=== PATIENT | female | born 1970 | race Caucasian/White ===

== ENCOUNTER → 2016-04-20 | Outpatient (CLI) | payer OTHER ==
--- NOTE | 2016-04-20 14:25 | XR ---
EXAMINATION TYPE: XR foot complete LT DATE OF EXAM: 04/20/2016 2:13 PM COMPARISON: NONE HISTORY: Pain left midfoot Arthropathy of the first MTP joint. Hypertrophic change involving the base of the fifth metacarpal. C alcaneal large spurs noted. Osseous structures intact. IMPRESSION: 1. No acute fracture or dislocation. If symptoms persist, follow-up exam in 7 to 10 days could be ob tained. 2. Arthropathy and hypertrophic changes.
== END ==
LOC: RADXRMAIN 13:42
PROVIDERS: ATTEND Physician Assistant
DX: M19.072 Primary osteoarthritis, left ankle and foot (principal)

== ENCOUNTER → 2016-09-06 | Outpatient (CLI) | payer OTHER ==
--- NOTE | 2016-09-06 17:24 | US ---
EXAMINATION TYPE: US abdomen complete DATE OF EXAM: 09/06/2016 COMPARISON: NONE CLINICAL HISTORY: R10.11 RUQ PAIN. H/O, GERD, heartburn, nausea EXAM MEASUREMENTS: Liver Length: 20.8 cm Gallbladder Wall: 0.2 cm CBD: 0.4 cm Spleen: 11.4 cm Right Kidney: 11.0 x 4.9 x 4.7cm Left Kidney: 11.8 x 5.2 x 6.2cm Pancreas: limited views appear wnl Liver: difficult to penetrate, enlarged, focal fatty sparring around GB Gallbladder: wnl Evidence for sonographic Stephen's sign: no CBD: wnl Spleen: wnl Right Kidney: wnl Left Kidney: 2.5cm hypoechoic area seen midline, probable dromedary hump Upper IVC: wnl Abd Aorta: distal area gassed out The pancreas is poorly visualized. The liver is enlarged measuring 21 cm. Is fatty infiltrated with some focal fatty sparing near the ga llbladder fossa. The gallbladder is normal without cholelithiasis. The gallbladder wall measures 2 mm. The disc, hepat ic duct measures 4 mm. There is no evidence of a sonographic Stephen's sign. The spleen is normal in size. Right kidney is normal. There is a prominent dromedary hump involving the left kidney. Visualized portions of aorta and IVC are normal. IMPRESSION: 1. HEPATOMEGALY AND FATTY INFILTRATION OF THE LIVER. 2. PROBABLE DROMEDARY HUMP INVOLVING THE LEFT KIDNEY.
== END | disposition home or self-care (01) ==
LOC: RADUSWWP 10:03
PROVIDERS: ATTEND Family Medicine
DX: R16.0 Hepatomegaly, not elsewhere classified (principal); K76.0 Fatty (change of) liver, not elsewhere classified
CPT/HCPCS: 76700

== ENCOUNTER → 2017-02-08 | Outpatient (CLI) | payer OTHER ==
[2017-02-08 11:35] LABS: Non-African American GFR(MDRD) >60 (>60 ml/min/1.73 sqM)
--- NOTE | 2017-02-16 07:57 | MR ---
EXAMINATION TYPE: MR brain wo/w con DATE OF EXAM: 02/08/2017 COMPARISON: NONE HISTORY: Essential tremor CONTRAST: Performed utilizing 9 mL intravenous Gadavist gadolinium contrast. TECHNIQUE: Multiplanar, multiecho imaging on a 3.0 Anuja magnet is performed through the brain. Stud y is performed within 24 hours of arrival to the hospital. The craniovertebral junction is normal. The pituitary is normal. Diffusion-weighted imaging is performed. No abnormal hyperintensity is present to suggest an acute i ntracranial infarct or acute ischemic change. There are scattered punctate areas of hyperintensity on T2 and Inversion Recovery weighted sequences which are non-specific but can be related to microvascular ischemic changes. These areas are not appa rent on the diffusion-weighted imaging and include locations such as the left centrum semiovale measu ring 0.8 x 0.6 cm. Series 501, image 19. Also within the subcortical white matter of the right fronta l lobe measuring 0.5 x 0.5 cm. Series 501, image 19. There is a 0.7 cm lesion with the right centrum semiovale. Series 501, image 21. Additional punctate subcortical white matter changes are within the frontal lobes bilaterally and within the subcortical white matter of the parietal lobes level of the fong radiata. These larger areas. Than present previously and subcortical punctate white matter isidro nges are faintly visualized. Ventricles and sulci are appropriate for the patient age. Following contrast administration, no suspicious area of enhancement is evident. IMPRESSIONS: 1. Scattered small areas of white matter change which are nonspecific. The findings are stable from 2 013. Chronic white matter ischemic changes are favored within the differential. Multiple sclerosis, v asculitis, among other etiologies are not excluded.
== END | disposition home or self-care (01) ==
LOC: RADMRIMAIN 11:00
PROVIDERS: ATTEND Psychiatry & Neurology Neurology
DX: R90.82 White matter disease, unspecified (principal); Z13.89 Encounter for screening for other disorder
CPT/HCPCS: 82565; 70553; 36415; A9581

== ENCOUNTER 2018-05-27 16:49 | Emergency (ER) | payer OTHER ==
[2018-05-27] MEDS ORDERED: IPRATROPIUM-ALBUTEROL 3 ML NEB INHALATION STA (17:31)
[2018-05-27 17:45] LABS: Basophils # (A) 0.1 k/uL (0-0.2); Basophils % (A) 1 %; Eosinophils # (A) 0.2 k/uL (0-0.7); Eosinophils % (A) 3 %; HCT 37.5 % (34.0-46.0); HGB 12.9 gm/dL (11.4-16.0); Lymphocytes # (A) 1.7 k/uL (1.0-4.8); Lymphocytes % (A) 26 %; MCH 28.1 pg (25.0-35.0); MCHC 34.4 g/dL (31.0-37.0); MCV 81.6 fL (80.0-100.0); Mean Platelet Volume 9.3; Monocytes # (A) 0.5 k/uL (0-1.0); Monocytes % (A) 8 %; Neutrophils % (A) 60 %; Platelet Count 319 k/uL (150-450); RDW 15.2 % (11.5-15.5); WBC 6.6 k/uL (3.8-10.6)
--- NOTE | 2018-05-27 17:45 | ED ---
Chest Pain HPI - General Chief Complaint: Chest Pain Stated Complaint: Chest Discomfort - [facility] Sent Time Seen by Provider: 05/27/18 17:01 Source: patient Mode of arrival: ambulatory Limitations: no limitations - History of Present Illness Initial Comments: 47-year-old female patient percents emergency department today for evaluation of chest pain. Patient states she began to have left upper sharp chest pain last evening. Patient states that migrated to her substernal chest and feels like a tightness that does radiate through to her back. States this has been constant since last night. Patient states that she has had a cough and does feel rattling in her chest when she coughs, laughs, or sings. Patient denies any shortness of breath with this. Denies any sweats, fever, chills, nausea, or vomiting. States that she does have a history of acid reflux and hiatal hernia which occasionally does cause her some indigestion but this feels different. Patient does have a history of diabetes and hypertension. Does have a family history of coronary artery disease in her father. Patient denies any recent rash, abdominal pain, diarrhea, constipation, back pain, numbness, tingling, dizziness, weakness, hematuria, dysuria, urinary urgency, urinary frequency, headache, visual changes, or any other complaints. - Related Data Home Medications Medication Instructions Recorded Confirmed Esomeprazole Magnesium [NexIUM] 40 mg PO DAILY 10/28/15 10/31/15 HYDROcodone/APAP 5-325MG [[place] 1 - 2 tab PO Q6HR PRN 10/28/15 10/31/15 5-325] Losartan-Hctz 50-12.5 mg [Hyzaar 1 each PO DAILY 10/28/15 10/31/15 50-12.5] Pain Away 1 tab PO DAILY PRN 10/28/15 10/31/15 metFORMIN HCL [Glucophage] 500 mg PO BID 10/28/15 10/31/15 Previous Rx's Medication Instructions Recorded Albuterol Sulfate [Proair Hfa] 1 - 2 puff INHALATION Q6HR PRN #1 05/27/18 inhaler predniSONE 50 mg PO DAILY #5 tablet 05/27/18 Allergies Allergy/AdvReac Type Severity Reaction Status Date / Time adhesive tape AdvReac Rash/Hives Verified 05/27/18 16:55 Review of Systems ROS Statement: Those systems with pertinent positive or pertinent negative responses have been documented in the HPI. ROS Other: All systems not noted in ROS Statement are negative. EKG Findings - EKG Comments: EKG Findings:: EKG obtained at 1732 shows normal sinus rhythm with a ventricular rate of 89, VT interval 166, QRS duration 84, QT 368, QTC 447. No evidence of ST elevation or depression. Past Medical History Past Medical History: Cancer, Diabetes Mellitus, GERD/Reflux, Hypertension Additional Past Medical History / Comment(s): hx. 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 Date of last positivie culture/infection: 2013 MDRO Source:: back Past Surgical History: Tonsillectomy Additional Past Surgical History / Comment(s): EGD, colonoscopy Past Anesthesia/Blood Transfusion Reactions: Family History of Problems w/ Anesthesia Additional Past Anesthesia/Blood Transfusion Reaction / Comment(s): grandparent after surgery-?related to anesthesia Past Psychological History: No Psychological Hx Reported Smoking Status: Former smoker Past Alcohol Use History: None Reported Past Drug Use History: None Reported - Past Family History Mother Family Medical History: Deep Vein Thrombosis (DVT) General Exam Limitations: no limitations General appearance: alert, in no apparent distress, other (Physical well- developed, well-nourished adult female patient in no acute distress. Vital signs upon presentation are temperature 98.1F, pulse 94, respirations 18, blood pressure 114/78, pulse ox 98% on room air.) Eye exam: Present: normal appearance, PERRL, EOMI. Absent: scleral icterus, conjunctival injection, periorbital swelling ENT exam: Present: normal exam, normal oropharynx, mucous membranes moist Respiratory exam: Present: normal lung sounds bilaterally. Absent: respiratory distress, wheezes, rales, rhonchi, stridor Cardiovascular Exam: Present: regular rate, normal rhythm, normal heart sounds. Absent: systolic murmur, diastolic murmur, rubs, gallop, clicks GI/Abdominal exam: Present: soft, normal bowel sounds. Absent: distended, tenderness, guarding, rebound, rigid Neurological exam: Present: alert, oriented X3, CN II-XII intact Psychiatric exam: Present: normal affect, normal mood Skin exam: Present: warm, dry, intact, normal color. Absent: rash Course Vital Signs 05/27/18 05/27/18 05/27/18 16:52 17:47 18:00 Temperature 98.1 F Pulse Rate 94 89 88 Respiratory 18 Rate Blood Pressure 114/78 O2 Sat by Pulse 98 Oximetry 05/27/18 20:38 Temperature 97.5 F L Pulse Rate 82 Respiratory 14 Rate Blood Pressure 113/71 O2 Sat by Pulse 100 Oximetry Chest Pain [facility]:Two-view x-ray of the chest is obtained. Report was reviewed in its entirety. Impression by Dr. Ceja shows no acute pulmonary process. MDM: 47-year-old male patient presents to the emergency department today for evaluation of chest tightness. Physical examination does reveal mild wheezing in the posterior lung bustos. Patient does report cough. Chest x-ray shows no acute cardiopulmonary process. EKG shows normal sinus rhythm. Patient's heart score is 3 and therefore is low risk for cardiac event. She will be discharged with prescription for prednisone and Pro Air to treat bronchitis. She is instructed to follow-up with her primary care physician for further evaluation. Return parameters discussed in detail patient verbalizes understanding and agrees with this plan. Disposition Clinical Impression: Chest pain Disposition: HOME SELF-CARE Condition: Good Instructions (If sedation given, give patient instructions): Chest Pain (ED), Acute Bronchitis (ED) Additional Instructions: Take medications as directed. Follow-up with your primary care physician for recheck in 1-2 days. Return to the emergency department immediately for any new, worsening, or concerning symptoms. Prescriptions: predniSONE 50 mg PO DAILY #5 tablet Albuterol Sulfate [Proair Hfa] 1 - 2 puff INHALATION Q6HR PRN #1 inhaler PRN Reason: Shortness Of Breath Is patient prescribed a controlled substance at d/c from ED?: No Referrals: Tino Hou DO [Primary Care Provider] - 1-2 days Time of Disposition: 20:01
[2018-05-27 17:54] LABS: Partial Thromboplastin Time 22.4 sec (22.0-30.0); Prothrombin Time 10.7 sec (9.0-12.0)
[2018-05-27 17:58] LABS: ALT 31 U/L (9-52); AST 24 U/L (14-36); Alkaline Phosphatase 60 U/L (38-126); Anion Gap 13 mmol/L; Blood Urea Nitrogen 19 mg/dL (7-17); Calcium 9.5 mg/dL (8.4-10.2); Carbon Dioxide 25 mmol/L (22-30); Chloride 99 mmol/L (98-107); Glucose 164 mg/dL (74-99); Magnesium 1.5 mg/dL (1.6-2.3); Potassium 4.3 mmol/L (3.5-5.1); Sodium 137 mmol/L (137-145); Total Bilirubin 1.1 mg/dL (0.2-1.3); Total Protein 6.3 g/dL (6.3-8.2)
[2018-05-27] MEDS ORDERED: MAGNESIUM OXIDE 400 MG TAB PO STA (18:44)
--- NOTE | 2018-05-27 19:26 | XR ---
EXAMINATION TYPE: XR chest 2V DATE OF EXAM: 05/27/2018 COMPARISON: None INDICATION: Chest pain TECHNIQUE: Frontal and lateral views of the chest are obtained. FINDINGS: The heart size is normal. The pulmonary vasculature is normal. The lungs are clear. IMPRESSION: 1. No acute pulmonary process.
[2018-05-27] MEDS ORDERED: predniSONE 50 MG TAB PO STA (20:01)
[2018-05-27] MEDS ORDERED: ACET/COD 300 MG/30 MG STARTER PACK 6 TAB BTL PO STA (20:01)
[2018-05-27 20:40] VITALS: BP 113/71; PULSE 82; RESP 14; TEMP 97.5
== END 2018-05-27 20:57 | disposition home or self-care (01) ==
LOC: EC 16:49
DX: R07.89 Other chest pain (principal); R05 Cough; K21.9 Gastro-esophageal reflux disease without esophagitis; I10 Essential (primary) hypertension; E11.40 Type 2 diabetes mellitus with diabetic neuropathy, unspecified; Z86.14 Personal history of Methicillin resistant Staphylococcus aureus infection; Z85.828 Personal history of other malignant neoplasm of skin; Z87.891 Personal history of nicotine dependence; Z79.84 Long term (current) use of oral hypoglycemic drugs; Z79.899 Other long term (current) drug therapy; Z91.048 Other nonmedicinal substance allergy status
CPT/HCPCS: 36415; 94640; 93005; 80053; 83735; 84484; 85025; 85610; 85730; 71046; 99285; J7512

== ENCOUNTER 2019-01-24 18:57 | Inpatient (IN) | payer OTHER ==
[2019-01-24] MEDS ORDERED: ONDANSETRON 4 MG/2 ML VIAL IVP STA (20:10)
[2019-01-24] MEDS ORDERED: SODIUM CHLORIDE 0.9% 1,000 ML IV STA (20:10)
[2019-01-24] MEDS ORDERED: MORPHINE SULFATE 4 MG/ML SYRINGE IV STA (20:10)
[2019-01-24 20:12] LABS: Appearance,Urine Clear (Clear); Bilirubin,Urine Negative (Negative); Blood,Urine Negative (Negative); Color,Urine Yellow; Glucose,Urine (UA) 3+ (Negative); Ketones,Urine Negative (Negative); Leukocyte Esterase,Urine Negative (Negative); Nitrite,Urine Negative (Negative); PH, Urine 5.5 (5.0-8.0); Protein,Urine Negative (Negative); Specific Gravity,Urine 1.017 (1.001-1.035); Urobilinogen,Urine <2.0 mg/dL (<2.0)
[2019-01-24 20:42] LABS: Basophils # (A) 0.1 k/uL (0-0.2); Basophils % (A) 0 %; Eosinophils # (A) 0.1 k/uL (0-0.7); Eosinophils % (A) 1 %; HCT 36.9 % (34.0-46.0); HGB 12.9 gm/dL (11.4-16.0); Lymphocytes # (A) 1.1 k/uL (1.0-4.8); Lymphocytes % (A) 11 %; MCH 30.4 pg (25.0-35.0); MCHC 34.9 g/dL (31.0-37.0); Mean Platelet Volume 5.8; Monocytes # (A) 0.8 k/uL (0-1.0); Monocytes % (A) 7 %; Neutrophils # (A) 8.5 k/uL (1.3-7.7); Neutrophils % (A) 80 %; Platelet Count 361 k/uL (150-450); RBC 4.24 m/uL (3.80-5.40); RDW 12.5 % (11.5-15.5); WBC 10.6 k/uL (3.8-10.6)
[2019-01-24 20:44] LABS: ALT 16 U/L (9-52); AST 26 U/L (14-36); African American GFR (CKD) >90 (>60 ml/min/1.73 sqM); Albumin 3.9 g/dL (3.5-5.0); Alkaline Phosphatase 76 U/L (38-126); Amylase 32 U/L (30-110); Anion Gap 11 mmol/L; Blood Urea Nitrogen 13 mg/dL (7-17); Carbon Dioxide 26 mmol/L (22-30); Chloride 99 mmol/L (98-107); Glucose 176 mg/dL (74-99); Non-African American GFR(CKD) >90 (>60 ml/min/1.73 sqM); Sodium 136 mmol/L (137-145); Total Bilirubin 1.6 mg/dL (0.2-1.3); Total Protein 6.4 g/dL (6.3-8.2)
[2019-01-24 20:48] LABS: Potassium 4.3 mmol/L (3.5-5.1)
--- NOTE | 2019-01-24 20:49 | XR ---
EXAMINATION TYPE: XR KUB DATE OF EXAM: 01/24/2019 8:40 PM CLINICAL HISTORY: Abdominal pain with nausea and vomiting. TECHNIQUE: Two Upright KUB images of the abdomen are obtained. COMPARISON: None. FINDINGS: Some possibility of bowel gas. Scattered gas is seen in non-distended stomach and small bow el loops. Gas and fecal material is seen in non-distended colon. Patchy left basilar opacity favors a telectasis and/or infiltrate. Slight S-shaped scoliotic curvature. No pneumoperitoneum. Mild to moder ate narrowing both hip joints right greater than left. Prominent right hepatic lobe versus mild hepat omegaly. IMPRESSION: Overall nonspecific but strongly favor nonobstructive bowel gas pattern.
--- NOTE | 2019-01-24 21:49 | CT ---
EXAMINATION TYPE: CT abdomen pelvis w con DATE OF EXAM: 01/24/2019 HISTORY: left sided abdominal pain. hx of diverticulitis. CT DLP: 1110mGycm Automated Exposure Control for Dose Reduction was Utilized. CONTRAST: CT scan of the abdomen and pelvis is performed with IV Contrast, patient injected with 100 mL of Isov ue 300. COMPARISON: Abdominal x-ray earlier today FINDINGS: LUNG BASES: No significant abnormality is appreciated. LIVER/GB: No significant abnormality is appreciated. PANCREAS: No significant abnormality is seen. SPLEEN: No significant abnormality is seen. ADRENALS: No significant abnormality is seen. KIDNEYS: 3 mm nonobstructing calculus lower pole level left kidney coronal image 65. Symmetric cortic al medullary uptake and excretion from both kidneys without hydronephrosis seen bilaterally. BOWEL: Evaluation bowel slightly suboptimal secondary to lack of enteric contrast. Small to moderate size hiatal hernia. No suspicious small or large bowel dilatation. Low-lying cecum into the anterior right pelvis is noted. There is wall thickening beginning at level of splenic flexure becoming fairly severe proximal aspect coronal image 50 where there is posterior prominent 1.4 cm diverticulum. Ther e is moderate to severe ill-defined fluid and fat stranding at this level. There is mild to moderate wall thickening distal to this with mild ill-defined fluid in the remainder of the left colon. Modera te diverticula with mild wall thickening proximal sigmoid colon without surrounding inflammatory mckeon ge. No well-formed fluid collection or drainable abscess. No pneumoperitoneum. UTERUS/ADNEXA: Anteverted uterus projects to right of midline. Small amount of free fluid right pelvi s axial image 71 nonspecific finding. Both ovaries normal in size on axial image 68. Scattered pelvic phleboliths bilaterally. LYMPH NODES: No greater than 1cm abdominal or pelvic lymph nodes are appreciated. OSSEOUS STRUCTURES: Moderate disc space narrowing with vacuum disc phenomenon at L5-S1 level. Moderat e axial narrowing of both hip joints. OTHER: No significant additional abnormality is seen. IMPRESSION: Fairly moderate to severe acute uncomplicated diverticulitis centered proximal left colon in the lateral left upper to mid abdomen as detailed above.
[2019-01-24] MEDS ORDERED: ONDANSETRON 4 MG/2 ML VIAL IVP PRN (22:29)
[2019-01-24] MEDS ORDERED: NALOXONE 0.4 MG/ML 1 ML VIAL IV PRN (22:29)
[2019-01-24] MEDS ORDERED: PIPERACILLIN-TAZOBACTAM 3.375 GM in SODIUM CHLORIDE 0.9% 100 ML IVPB STA (22:30)
--- NOTE | 2019-01-24 22:34 | ED ---
Abdominal Pain HPI - General Chief Complaint: Abdominal Pain Stated Complaint: Abd pain Time Seen by Provider: 01/24/19 19:41 Source: patient Mode of arrival: ambulatory Limitations: no limitations - History of Present Illness Initial Comments: 48-year-old female patient presents to the emergency department today for evaluation of left-sided abdominal pain. Patient states this started earlier in the morning and has persisted throughout the day. Patient states she is very tender over the left side of her abdomen earlier. She denies any nausea or vo miting. Denies any constipation or diarrhea. Denies fever or chills. Denies any hematuria, dysuria, urinary frequency, urinary urgency. She denies any radiation of the pain through to her back. She does have history of diverticulitis, states this feels somewhat different. Denies any recent ant ibiotic use. Denies any recent travel or sick contacts. Denies history of abdominal surgery. Patient denies any recent rash, shortness breath, chest pain,numbness, tingling, dizziness, weakness, headache, visual changes, or any other complaints. - Related Data Home Medications Medication Instructions Recorded Confirmed Esomeprazole Magnesium [NexIUM] 40 mg PO DAILY 10/28/15 08/23/18 Losartan-Hctz 50-12.5 mg [Hyzaar 1 each PO DAILY 10/28/15 08/23/18 50-12.5] Pain Away 1 tab PO DAILY PRN 10/28/15 08/23/18 metFORMIN HCL [Glucophage] 500 mg PO BID 10/28/15 08/23/18 Allergies Allergy/AdvReac Type Severity Reaction Status Date / Time adhesive tape AdvReac Rash/Hives Verified 01/24/19 19:18 Review of Systems ROS Statement: Those systems with pertinent positive or pertinent negative responses have been documented in the HPI. ROS Other: All systems not noted in ROS Statement are negative. Past Medical History Past Medical History: Cancer, Diabetes Mellitus, GERD/Reflux, Hypertension Additional Past Medical History / Comment(s): hx. 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 Date of last positivie culture/infection: 2013 MDRO Source:: back Past Surgical History: Tonsillectomy Additional Past Surgical History / Comment(s): EGD, colonoscopy Past Anesthesia/Blood Transfusion Reactions: Family History of Problems w/ Anesthesia Additional Past Anesthesia/Blood Transfusion Reaction / Comment(s): grandparent after surgery-?related to anesthesia Past Psychological History: No Psychological Hx Reported Smoking Status: Former smoker Past Alcohol Use History: Occasional Past Drug Use History: None Reported - Past Family History Mother Family Medical History: Deep Vein Thrombosis (DVT) General Exam Limitations: no limitations General appearance: alert, in no apparent distress, other (This is a well- developed, well-nourished adult female patient in no acute distress. Vital signs upon presentation are temperature 99.2F, pulse 88, respirations 20, blood pressure 122/72, pulse ox 96% on room air.) Eye exam: Present: normal appearance, PERRL, EOMI. Absent: scleral icterus, conjunctival injection, periorbital swelling ENT exam: Present: normal exam, normal oropharynx, mucous membranes moist Respiratory exam: Present: normal lung sounds bilaterally. Absent: respiratory distress, wheezes, rales, rhonchi, stridor Cardiovascular Exam: Present: regular rate, normal rhythm, normal heart sounds. Absent: systolic murmur, diastolic murmur, rubs, gallop, clicks GI/Abdominal exam: Present: soft, tenderness (Left-sided tenderness), normal bowel sounds. Absent: distended, guarding, rebound, rigid Back exam: Present: normal inspection. Absent: CVA tenderness (R), CVA tenderness (L) Neurological exam: Present: alert, oriented X3, CN II-XII intact Psychiatric exam: Present: normal affect, normal mood Skin exam: Present: warm, dry, intact, normal color. Absent: rash Course Vital Signs 01/24/19 19:15 Temperature 99.2 F Pulse Rate 88 Respiratory 20 Rate Blood Pressure 122/72 O2 Sat by Pulse 96 Oximetry Medical Decision Making - Medical Decision Making 48-year-old female patient presents to the emergency room today for evaluation of left-sided abdominal pain. Physical examination did reveal tenderness over the left upper and left lower quadrant. Labs reviewed and did reveal normal white blood cell count. She did have low-grade temperature upon arrival 99.2. Patient underwent CT abdomen and pelvis which did show acute moderate to severe uncomplicated diverticulitis the left proximal colon. We will start Zosyn. To be admitted to the hospital for further evaluation. - Lab Data Result diagrams: 01/24/19 18:20 01/24/19 18:20 Lab Results 01/24/19 01/24/19 01/24/19 Range/Units 18:20 18:20 20:00 WBC 10.6 (3.8-10.6) k/uL RBC 4.24 (3.80-5.40) m/uL Hgb 12.9 (11.4-16.0) gm/dL Hct 36.9 (34.0-46.0) % MCV 87.0 (80.0-100.0) fL MCH 30.4 (25.0-35.0) pg MCHC 34.9 (31.0-37.0) g/dL RDW 12.5 (11.5-15.5) % Plt Count 361 (150-450) k/uL Neutrophils % 80 % Lymphocytes % 11 % Monocytes % 7 % Eosinophils % 1 % Basophils % 0 % Neutrophils # 8.5 H (1.3-7.7) k/uL Lymphocytes # 1.1 (1.0-4.8) k/uL Monocytes # 0.8 (0-1.0) k/uL Eosinophils # 0.1 (0-0.7) k/uL Basophils # 0.1 (0-0.2) k/uL Sodium 136 L (137-145) mmol/L Potassium 4.3 (3.5-5.1) mmol/L Chloride 99 (98-107) mmol/L Carbon Dioxide 26 (22-30) mmol/L Anion Gap 11 mmol/L BUN 13 (7-17) mg/dL Creatinine 0.63 (0.52-1.04) mg/dL Est GFR (CKD-EPI)AfAm >90 (>60 ml/min/1.73 sqM) Est GFR (CKD-EPI)NonAf >90 (>60 ml/min/1.73 sqM) Glucose 176 H (74-99) mg/dL Calcium 9.0 (8.4-10.2) mg/dL Total Bilirubin 1.6 H (0.2-1.3) mg/dL AST 26 (14-36) U/L ALT 16 (9-52) U/L Alkaline Phosphatase 76 (38-126) U/L Total Protein 6.4 (6.3-8.2) g/dL Albumin 3.9 (3.5-5.0) g/dL Amylase 32 (30-110) U/L Lipase 200 (23-300) U/L Urine Color Yellow Urine Appearance Clear (Clear) Urine pH 5.5 (5.0-8.0) Ur Specific [place] 1.017 (1.001-1.035) Urine Protein Negative (Negative) Urine Glucose (UA) 3+ H (Negative) Urine Ketones Negative (Negative) Urine Blood Negative (Negative) Urine Nitrite Negative (Negative) Urine Bilirubin Negative (Negative) Urine Urobilinogen <2.0 (<2.0) mg/dL Ur Leukocyte Esterase Negative (Negative) - Radiology Data Radiology results: report reviewed, image reviewed CT abdomen and pelvis is obtained. Report was reviewed in its entirety. Impression by Dr. Pickering shows fairly moderate to severe acute uncomplicated diverticulitis entered proximal left colon and the lateral left upper to mid abdomen as detailed above. Disposition Clinical Impression: Diverticulitis Disposition: ADMITTED IP TO THIS [facility] Condition: Serious Referrals: Tino Hou DO [Primary Care Provider] - 1-2 days Decision to Admit Reason: Admit from EC Decision Date: 01/24/19 Decision Time: 22:34
[2019-01-24] MEDS: SODIUM CHLORIDE 0.9% 1,000 ML IV SCH (23:23)
[2019-01-24] MEDS: PIPERACILLIN-TAZOBACTAM 3.375 GM in SODIUM CHLORIDE 0.9% 100 ML IVPB SCH (23:48)
[2019-01-25 00:01] LABS: Glucose,Whole Blood 145 mg/dL (75-99)
[2019-01-25] MEDS: MORPHINE SULFATE 4 MG/ML SYRINGE IV PRN ×2 (04:14→13:06)
[2019-01-25 07:12] LABS: Glucose,Whole Blood 158 mg/dL (75-99)
[2019-01-25] MEDS: PIPERACILLIN-TAZOBACTAM 3.375 GM in SODIUM CHLORIDE 0.9% 100 ML IVPB SCH ×3 (07:19→23:57)
[2019-01-25] MEDS: GABAPENTIN 400 MG CAP PO SCH ×3 (10:19→21:49)
[2019-01-25 10:22] LABS: Basophils % (A) 0 %; Eosinophils # (A) 0.1 k/uL (0-0.7); Eosinophils % (A) 1 %; HGB 11.4 gm/dL (11.4-16.0); Lymphocytes # (A) 1.4 k/uL (1.0-4.8); Lymphocytes % (A) 18 %; MCH 30.5 pg (25.0-35.0); MCHC 34.6 g/dL (31.0-37.0); MCV 88.1 fL (80.0-100.0); Mean Platelet Volume 5.7; Monocytes # (A) 0.6 k/uL (0-1.0); Monocytes % (A) 8 %; Neutrophils # (A) 5.5 k/uL (1.3-7.7); Neutrophils % (A) 72 %; Platelet Count 314 k/uL (150-450); RBC 3.74 m/uL (3.80-5.40); RDW 12.4 % (11.5-15.5); WBC 7.7 k/uL (3.8-10.6)
[2019-01-25] MEDS: LOSARTAN-HCTZ 50-12.5 MG 1 EACH TAB PO SCH ×2 (10:26→21:49)
[2019-01-25] MEDS: ENOXAPARIN 40 MG/0.4 ML SYRINGE SQ SCH (10:26)
[2019-01-25 12:07] LABS: Glucose,Whole Blood 173 mg/dL (75-99)
[2019-01-25] MEDS: INSULIN ASPART (NovoLOG) 100 UNIT/ML VIAL SQ SCH ×3 (13:03→21:50)
[2019-01-25] MEDS: SODIUM CHLORIDE 0.9% 1,000 ML IV SCH (16:35)
[2019-01-25 17:21] LABS: Glucose,Whole Blood 133 mg/dL (75-99)
[2019-01-25 20:32] LABS: Glucose,Whole Blood 162 mg/dL (75-99)
--- NOTE | 2019-01-26 00:12 | P.HPIM ---
History of Present Illness H&P Date: 01/25/19 Chief Complaint: Abdominal pain History of presenting complaint: This is a pleasant 48-year-old patient of Dr. Hou. Chronic stable medical conditions include diabetes, GERD, hypertension, peripheral neuropathy, essential tremor and Martins's esophagus which has subsequently improved. I saw the patient in the morning off 01/25/2019. Patient for 2 days has been increa singly "abdominal pain. No diarrhea. No nausea vomiting. Did a low-grade fever. Presented to the ER. Computed tomography scan of the abdomen showed diverticulitis. Starting IV antibiotics admitted for the same. Does feel a bit tired and rundown. Review of systems: GEN.: Tired low-grade fever EYES: None HEENT: None NECK: None RESPIRATORY: None CARDIOVASCULAR: None GASTROINTESTINAL: As above GENITOURINARY: None MUSCULOSKELETAL: None LYMPHATICS: None HEMATOLOGICAL: None PSYCHIATRY: None NEUROLOGICAL: Peripheral numbness tingling, tremors Social history: Patient smokes it was ordered after about 2005. Lives alone. Doesn't smoke. To water area transit. Physical examination: VITAL SIGNS: Weight 100.8, pulse 69, respiratory, blood pressure 120/77, 99% room air GENERAL: BMI 30.9, laying in bed in distress. EYES: Pupils equal. Conjunctiva normal. HEENT: External appearance of nose and ears normal, oral cavity grossly normal. NECK: JVD not raised; masses not palpable. HEART: First and second heart sounds are normal; no edema. LUNGS: Respiratory rate normal; clear to auscultation. ABDOMEN: Soft, some left lower quadrant tenderness, no guarding or rigidity, liver spleen not palpable, no masses palpable. PSYCH: Alert and oriented x3; mood and affect normal. NEUROLOGICAL: Cranial nerves grossly intact; no facial asymmetry, power and sensation grossly intact. LYMPHATICS: No lymph nodes palpable in the axilla and neck INVESTIGATIONS, reviewed in the clinical context: White count 10.6 hemoglobin 12.9 progression 4.3 creatinine 0.63 Computed tomography scan abdomen-fairly moderate to severe acute uncomplicated diverticulitis centric proximal left colon in the lateral left upper to mid abdomen. Assessment: -Acute motor severe acute uncomplicated diverticulitis -Obesity BMI 30.9 -Diabetes mellitus type 2 -GERD -Essential hypertension -Diabetic peripheral neuropathy -Essential hypertension Plan: Patient is on IV Zosyn. Add IV Flagyl. Put the patient on a full liquid diet. Given GI opinion. Lovenox for DVT prophylaxis. Home medications to be resumed. Care was discussed with the patient. Past Medical History Past Medical History: Cancer, Diabetes Mellitus, GERD/Reflux, Hypertension Additional Past Medical History / Comment(s): hx. 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 Date of last positivie culture/infection: 2013 MDRO Source:: back Past Surgical History: Tonsillectomy Additional Past Surgical History / Comment(s): EGD, colonoscopy Past Anesthesia/Blood Transfusion Reactions: Family History of Problems w/ Anesthesia Additional Past Anesthesia/Blood Transfusion Reaction / Comment(s): grandparent after surgery-?related to anesthesia Past Psychological History: No Psychological Hx Reported Smoking Status: Never smoker Past Alcohol Use History: Occasional Additional Past Alcohol Use History / Comment(s): quit smoking 2005, smoked on & off for only few yrs. Past Drug Use History: None Reported - Past Family History Mother Family Medical History: Deep Vein Thrombosis (DVT) Medications and Allergies Home Medications Medication Instructions Recorded Confirmed Type Losartan-Hctz 50-12.5 mg [Hyzaar 1 tab PO BID 10/28/15 01/24/19 History 50-12.5] metFORMIN HCL [Glucophage] 1,000 mg PO BID 10/28/15 01/24/19 History Acetaminophen Tab [Tylenol Tab] 1,000 mg PO Q6H PRN 01/24/19 01/24/19 History Gabapentin [Neurontin] 400 mg PO TID 01/24/19 01/24/19 History Ibuprofen [Motrin Ib] 600 mg PO Q6H PRN 01/24/19 01/24/19 History Allergies Allergy/AdvReac Type Severity Reaction Status Date / Time adhesive tape AdvReac Rash/Hives Verified 01/24/19 23:36 Physical Exam Vitals: Vital Signs Temp Pulse Resp BP Pulse Ox 01/25/19 23:00 99.3 F 79 12 107/73 94 L 01/25/19 13:47 97.6 F 83 16 122/74 96 01/25/19 10:24 88 113/72 94 L 01/25/19 04:45 99.9 F H 96 20 101/62 95 Intake and Output 01/25/19 01/25/19 01/26/19 14:59 22:59 06:59 Intake Total 800 Balance 800 Intake: Oral 800 Other: # Voids 2 Results CBC & Chem 7: 01/25/19 09:38 01/24/19 18:20 Labs: Abnormal Lab Results - Last 24 Hours (Table) 01/25/19 01/25/19 01/25/19 Range/Units 07:10 09:38 12:05 RBC 3.74 L (3.80-5.40) m/uL Hct 33.0 L (34.0-46.0) % POC Glucose (mg/dL) 158 H 173 H (75-99) mg/dL 01/25/19 01/25/19 Range/Units 17:08 20:29 RBC (3.80-5.40) m/uL Hct (34.0-46.0) % POC Glucose (mg/dL) 133 H 162 H (75-99) mg/dL Thrombosis Risk Factor Assmnt - Choose All That Apply Any of the Below Risk Factors Present?: Yes Each Factor Represents 1 point: Age 41-60 years, Obesity (BMI >25) Thrombosis Risk Factor Assessment Total Risk Factor Score: 2 Thrombosis Risk Factor Assessment Level: Low Risk
[2019-01-26] MEDS: MORPHINE SULFATE 4 MG/ML SYRINGE IV PRN (06:16)
[2019-01-26 06:18] VITALS: RESP 16
[2019-01-26 07:16] LABS: Glucose,Whole Blood 195 mg/dL (75-99)
[2019-01-26] MEDS: ENOXAPARIN 40 MG/0.4 ML SYRINGE SQ SCH ×2 (08:03→08:19)
[2019-01-26] MEDS: LOSARTAN-HCTZ 50-12.5 MG 1 EACH TAB PO SCH ×2 (08:03→21:13)
[2019-01-26] MEDS: PIPERACILLIN-TAZOBACTAM 3.375 GM in SODIUM CHLORIDE 0.9% 100 ML IVPB SCH ×2 (08:04→15:39)
[2019-01-26] MEDS: INSULIN ASPART (NovoLOG) 100 UNIT/ML VIAL SQ SCH ×4 (08:04→20:55)
[2019-01-26] MEDS: GABAPENTIN 400 MG CAP PO SCH ×3 (08:05→20:56)
[2019-01-26 09:19] LABS: HCT 33.4 % (34.0-46.0); HGB 11.1 gm/dL (11.4-16.0); MCH 29.6 pg (25.0-35.0); MCHC 33.2 g/dL (31.0-37.0); Mean Platelet Volume 7.3; Platelet Count 314 k/uL (150-450); RBC 3.75 m/uL (3.80-5.40); RDW 12.2 % (11.5-15.5); WBC 6.7 k/uL (3.8-10.6)
[2019-01-26 09:29] LABS: African American GFR (CKD) >90 (>60 ml/min/1.73 sqM); Anion Gap 11 mmol/L; Blood Urea Nitrogen 8 mg/dL (7-17); Calcium 8.8 mg/dL (8.4-10.2); Carbon Dioxide 29 mmol/L (22-30); Chloride 96 mmol/L (98-107); Glucose 247 mg/dL (74-99); Non-African American GFR(CKD) >90 (>60 ml/min/1.73 sqM); Potassium 4.2 mmol/L (3.5-5.1); Sodium 136 mmol/L (137-145)
[2019-01-26 12:04] LABS: Glucose,Whole Blood 255 mg/dL (75-99)
[2019-01-26] MEDS: SODIUM CHLORIDE 0.9% 1,000 ML IV SCH (15:39)
[2019-01-26 16:47] LABS: Glucose,Whole Blood 180 mg/dL (75-99)
[2019-01-26] MEDS: PANTOPRAZOLE 40 MG TABLET PO SCH (17:22)
[2019-01-26] MEDS: metFORMIN 500 MG TAB PO SCH (17:22)
--- NOTE | 2019-01-26 20:11 | PN ---
PROGRESS NOTE DATE OF SERVICE: 01/26/2019 This 48-year-old woman who was admitted with acute uncomplicated diverticulitis is on IV antibiotics. No chest pain. No palpitations. No fever. Dr. Hernández has been consulted. PHYSICAL EXAMINATION: Alert and oriented x3. Pulse 87, blood pressure 103/67, respirations 16, temperature 97.3, pulse ox 96% on room air. HEENT: Conjunctivae normal. NECK: No jugular venous distention. CARDIOVASCULAR SYSTEM: S1, S2 muffled. RESPIRATORY SYSTEM: Breath sounds diminished at the bases. No rhonchi. No crackles. ABDOMEN: Soft. Mild diffuse tenderness. LEGS: No edema. No swelling. NERVOUS SYSTEM: No focal deficit. LABS: WBC 6.7, hemoglobin 11.1. Sodium 136. Accu-Cheks 245, 255. ASSESSMENT: 1. Acute severe uncomplicated diverticulitis. 2. Obesity with a body mass index of 30.9. 3. Diabetes mellitus, type 2. 4. Gastroesophageal reflux disease. 5. Hypertension. 6. Diabetic peripheral neuropathy. 7. Hypertension, essential. 8. Hyponatremia. 9. Anemia, normocytic; anemia of chronic disease. RECOMMENDATIONS AND DISCUSSION: In this 48-year-old woman who presented with multiple complex medical issues, at this time I recommend to continue current medications, continue with symptomatic treatment. Continue with the broad-spectrum IV antibiotics. Otherwise, resume the home medications. DVT prophylaxis. Symptomatic treatment. Prognosis guarded because of multiple complex medical issues. Further recommendations to follow. MMODL / IJN: [id number] /
[2019-01-26 20:39] LABS: Glucose,Whole Blood 181 mg/dL (75-99)
--- NOTE | 2019-01-26 21:48 | CONS ---
CONSULTATION DATE OF SERVICE: January 26, 2019. REQUESTING PHYSICIAN: Dr. Hou. REASON FOR CONSULTATION: Sigmoid diverticulitis. HISTORY OF PRESENT ILLNESS: Patient is a 48-year-old pleasant white female who was admitted to the hospital with acute onset of severe lower abdominal pain for the last 2 days duration. The pain continued to progressively get worse. She denies any nausea, vomiting. She had low- grade fever at home. No rectal bleeding or melena. She came into the emergency room. A CT of the abdomen and pelvis showed acute sigmoid diverticulitis. She was started on IV antibiotics and she is feeling much better today. In fact, the pain has completely resolved. She had a similar episode approximately 10 years ago. Her last colonoscopy was about 10 years ago. PAST MEDICAL HISTORY: Significant for hypertension, diabetes mellitus, obesity, GERD, peripheral neuropathy. PAST SURGICAL HISTORY: Tonsillectomy and back surgery, EGD, colonoscopy 10 years ago. MEDICATIONS: At home include losartan, metformin, acetaminophen, Neurontin and Motrin. ALLERGIES: To ADHESIVE TAPE. FAMILY HISTORY: Mother had DVT. SOCIAL HISTORY: Quit smoking 2004. No alcohol use. REVIEW OF SYSTEMS: CARDIOPULMONARY: No chest pain, shortness of breath. GENITOURINARY: No dysuria or hematuria. MUSCULOSKELETAL unremarkable. SKIN unremarkable. ENDOCRINE unremarkable. PSYCHIATRIC unremarkable. NEUROLOGY unremarkable. ENT/vision unremarkable. CONSTITUTIONAL: No recent weight loss. No fever, chills, night sweats. PHYSICAL EXAMINATION: Blood pressure 103/67, pulse rate 87, temperature 97.3. HEENT examination unremarkable. Conjunctivae pink. Sclerae anicteric. Oral cavity no lesions. NECK: No JVD or lymph node enlargement. CHEST: Clear to auscultation. HEART: Regular rate and rhythm. ABDOMEN: Soft. Bowel sounds are positive. No organomegaly. EXTREMITIES: No pedal edema. SKIN no rashes. NEUROLOGIC: Alert and oriented x3. No focal deficits. LABS: Done today WBC 6.7, hemoglobin 11.1, platelets normal. Basic metabolic panel is within normal limits. CT of the abdomen and pelvis done 2 days ago in the emergency room showed evidence of moderate to severe acute uncomplicated sigmoid diverticulitis. IMPRESSION: 1. Acute sigmoid diverticulitis on broad-spectrum antibiotics with Zosyn, doing much better. Abdominal symptoms have completely resolved. 2. Low-grade fever secondary diverticulitis, resolving. RECOMMENDATIONS: 1. Continue with broad-spectrum antibiotics. 2. Advance diet as tolerated to low-fiber diet. 3. If her symptoms improve, she can be discharged home tomorrow with outpatient followup in 2 weeks and we will plan on a colonoscopy in 6-8 weeks. Thank you for this consultation. CARLOS / ALBERTO: [id number] /
[2019-01-27] MEDS: PIPERACILLIN-TAZOBACTAM 3.375 GM in SODIUM CHLORIDE 0.9% 100 ML IVPB SCH ×2 (00:06→08:13)
[2019-01-27] MEDS: MORPHINE SULFATE 4 MG/ML SYRINGE IV PRN (00:11)
[2019-01-27 05:05] VITALS: BP 108/72; PULSE 71; TEMP 98.2
[2019-01-27 07:23] LABS: Glucose,Whole Blood 166 mg/dL (75-99)
[2019-01-27] MEDS: ENOXAPARIN 40 MG/0.4 ML SYRINGE SQ SCH ×2 (08:12→08:14)
[2019-01-27] MEDS: LOSARTAN-HCTZ 50-12.5 MG 1 EACH TAB PO SCH (08:12)
[2019-01-27] MEDS: PANTOPRAZOLE 40 MG TABLET PO SCH (08:12)
[2019-01-27] MEDS: GABAPENTIN 400 MG CAP PO SCH (08:12)
[2019-01-27] MEDS: INSULIN ASPART (NovoLOG) 100 UNIT/ML VIAL SQ SCH ×2 (08:13→12:43)
[2019-01-27] MEDS: metFORMIN 500 MG TAB PO SCH (08:13)
[2019-01-27] MEDS: SODIUM CHLORIDE 0.9% 1,000 ML IV SCH (10:45)
--- NOTE | 2019-01-27 11:20 | PN ---
PROGRESS NOTE DATE OF DICTATION: January 27, 2019 Patient is a 48-year-old pleasant white female admitted to the hospital with acute sigmoid diverticulitis. She is feeling much better today. Abdominal pain has resolved. Remains on IV antibiotics. Had a regular bowel movement this morning. No bleeding. She denies any fever, chills, or night sweats. PHYSICAL EXAMINATION: Blood pressure 108/72, pulse is 71, temperature 98.2. HEENT examination unremarkable. Conjunctivae pink. Sclerae anicteric. Oral cavity no lesions. NECK: No JVD or lymph node enlargement. CHEST: Clear to auscultation. HEART: Regular rate and rhythm. ABDOMEN: Soft, it was nontender, nondistended. Bowel sounds are positive. No organomegaly. EXTREMITIES: No pedal edema. SKIN: No rashes. NEUROLOGIC: Alert and oriented x3. No focal deficits. LABS: From yesterday, are all within normal limits. No labs from today. IMPRESSION: Acute sigmoid diverticulitis on broad-spectrum antibiotics with Zosyn, doing much better. Symptoms have almost resolved. She had a prior history of acute sigmoid diverticulitis 10 years ago. RECOMMENDATIONS: 1. Advance to a low-fiber diet. 2. Continue with antibiotics. 3. She can be discharged home today with an outpatient followup in 3-4 weeks at which time we will discuss colonoscopy on an outpatient basis. Thank you for this consultation. MMODL / IJN: [id number] /
[2019-01-27 11:38] LABS: Glucose,Whole Blood 229 mg/dL (75-99)
--- NOTE | 2019-01-27 22:50 | DS ---
DISCHARGE SUMMARY DATE OF SERVICE: 01/27/2019 FINAL DIAGNOSES: 1. Acute severe uncomplicated diverticulitis. 2. Obesity with body mass index of 30.9. 3. Diabetes mellitus type 2. 4. Gastroesophageal reflux disease. 5. Hypertension. 6. History of diabetic peripheral neuropathy. 7. Hypertension, essential. 8. Hyponatremia. 9. Anemia, normocytic anemia of chronic disease. DISCHARGE DISPOSITION: The patient will be discharged in stable condition with guarded prognosis. Dr. Hernández cleared the patient for discharge. HISTORY OF PRESENT ILLNESS: This 48-year-old woman with a past medical history of multiple medical problems, admitted to the hospital with acute features of acute severe diverticulitis. Patient treated with IV antibiotics. Patient improved significantly. Dr. Hernández saw the patient On exam, vitals signs are stable. Cardiovascular: S1, S2. Abdomen soft. Nontender. Nervous System: No focal deficits. DISCHARGE ADVICE: 1. Diet is cardiac diet. 2. Activity limited until followup. 3. Follow up with Dr. Hou in 1-2 days. 4. Follow up with Dr. Hernández as recommended. DISCHARGE MEDICATIONS: 1. Glucophage 1000 mg p.o. b.i.d. 2. Hyzaar 50/12.5 mg p.o. b.i.d. 3. Motrin 600 mg q.6h p.r.n. 4. Neurontin 400 mg p.o. t.i.d. 5. Tylenol p.r.n. 6. Augmentin 875 mg 1 p.o. b.i.d. 7. Multivitamins 1 p.o. daily. Once again, the patient being discharged in stable with guarded prognosis. MMODL / IJN: [id number] / MTDD
== END 2019-01-27 15:25 | disposition home or self-care (01) | DRG 392 ==
LOC: EC 18:57 → 4MS4W 22:10
PROVIDERS: ADMIT Hospitalist; ATTEND Hospitalist
DX: K57.32 Diverticulitis of large intestine without perforation or abscess without bleeding (principal); E87.1 Hypo-osmolality and hyponatremia; D63.8 Anemia in other chronic diseases classified elsewhere; E11.42 Type 2 diabetes mellitus with diabetic polyneuropathy; E66.9 Obesity, unspecified; Z60.2 Problems related to living alone; G25.0 Essential tremor; I10 Essential (primary) hypertension; K21.9 Gastro-esophageal reflux disease without esophagitis; K22.70 Barrett's esophagus without dysplasia; Z68.30 Body mass index [BMI] 30.0-30.9, adult; Z79.84 Long term (current) use of oral hypoglycemic drugs; Z79.899 Other long term (current) drug therapy; Z85.828 Personal history of other malignant neoplasm of skin; Z87.891 Personal history of nicotine dependence
CPT/HCPCS: 36415; 74018; 74177; 80048; 80053; 81003; 82150; 83690; 85025; 85027; 87040; 96361; 96374; 96375; 99285

== ENCOUNTER 2020-01-16 14:54 | Emergency (ER) | payer OTHER ==
[2020-01-16 15:22] VITALS: RESP 18
[2020-01-16] MEDS ORDERED: ONDANSETRON 4 MG/2 ML VIAL IVP STA (15:43)
[2020-01-16] MEDS ORDERED: SODIUM CHLORIDE 0.9% 500 ML 500 ML IV STA (15:43)
[2020-01-16] MEDS ORDERED: SODIUM CHLORIDE 0.9% 1,000 ML IV STA ×2 (15:43)
--- NOTE | 2020-01-16 16:23 | ED ---
Nausea/Vomiting/Diarrhea HPI - General Chief complaint: Nausea/Vomiting/Diarrhea Stated complaint: Diarrhea Time Seen by Provider: 01/16/20 15:31 Source: patient, RN notes reviewed, old records reviewed Mode of arrival: ambulatory Limitations: no limitations - History of Present Illness Initial comments: This is a 49-year-old female presents DF for evaluation of persistent nausea vomiting and diarrhea, abdominal pain. No fevers. Patient has history of year- old bowel syndrome was sent in by primary care to rule out coronavirus for some other cause of infectious diarrhea. Patient feels little bit weak no current nausea vomiting, no active diarrhea no blood. No travel history or sick contacts. MD complaint: nausea, vomiting, abdominal pain -: days(s) Description of Vomiting: food contents Description of Diarrhea: water Associated Abdominal Pain: Yes Location: diffuse Radiation: none Severity: mild Severity scale (1-10): 3 Quality: aching Consistency: intermittent Improves with: none Worsens with: none Associated Symptoms: myalgias, nausea/vomiting, weakness - Related Data Home Medications Medication Instructions Recorded Confirmed metFORMIN HCL [Glucophage] 1,000 mg PO BID 10/28/15 01/16/20 Acetaminophen Tab [Tylenol] 1,000 mg PO Q6H PRN 01/24/19 01/16/20 Gabapentin [Neurontin] 400 mg PO TID 01/24/19 01/16/20 Ibuprofen [Motrin Ib] 600 mg PO Q6H PRN 01/24/19 01/16/20 Baclofen 10 mg PO BID 01/10/20 01/16/20 Garlic 1 tab PO DAILY 01/10/20 01/16/20 Hydrochlorothiazide 12.5 mg PO DAILY 01/10/20 01/16/20 [hydroCHLOROthiazide] Loratadine [Claritin] 10 mg PO DAILY 01/10/20 01/16/20 Losartan [Cozaar] 50 mg PO BID 01/10/20 01/16/20 Nitroglycerin Sl Tabs [Nitrostat] 0.4 mg SUBLINGUAL Q5M PRN 01/10/20 01/16/20 Pantoprazole [Protonix] 40 mg PO DAILY 01/10/20 01/16/20 Supplement W/Vit C(Uk Strength 1 tab PO DAILY 01/16/20 01/16/20 Previous Rx's Medication Instructions Recorded Multivitamins, Thera [Multivitamin] 1 tab PO DAILY #30 tablet 01/27/19 Allergies Allergy/AdvReac Type Severity Reaction Status Date / Time adhesive tape AdvReac Rash/Hives Verified 01/16/20 17:03 Review of Systems ROS Statement: Those systems with pertinent positive or pertinent negative responses have been documented in the HPI. ROS Other: All systems not noted in ROS Statement are negative. Past Medical History Past Medical History: Cancer, Diabetes Mellitus, GERD/Reflux, Hypertension Additional Past Medical History / Comment(s): hx. skin cancer, neuropathy feet, essential tremors, Martins's esophagus, states spastic colon, hx of diverticulitis, anemia History of Any Multi-Drug Resistant Organisms: MRSA Date of last positivie culture/infection: 2013 MDRO Source:: back Past Surgical History: Tonsillectomy Additional Past Surgical History / Comment(s): EGD, colonoscopy, abscess on back removed Past Anesthesia/Blood Transfusion Reactions: Family History of Problems w/ Anesthesia Additional Past Anesthesia/Blood Transfusion Reaction / Comment(s): grandparent after surgery-?related to anesthesia Past Psychological History: No Psychological Hx Reported Smoking Status: Former smoker - Past Family History Mother Family Medical History: Deep Vein Thrombosis (DVT) General Exam Limitations: no limitations General appearance: alert, in no apparent distress Head exam: Present: atraumatic, normocephalic, normal inspection Eye exam: Present: normal appearance, PERRL, EOMI. Absent: scleral icterus, conjunctival injection, periorbital swelling ENT exam: Present: normal exam, mucous membranes moist Neck exam: Present: normal inspection. Absent: tenderness, meningismus, lymph adenopathy Respiratory exam: Present: normal lung sounds bilaterally. Absent: respiratory distress, wheezes, rales, rhonchi, stridor Cardiovascular Exam: Present: regular rate, normal rhythm, normal heart sounds. Absent: systolic murmur, diastolic murmur, rubs, gallop, clicks GI/Abdominal exam: Present: soft, normal bowel sounds. Absent: distended, tenderness, guarding, rebound, rigid Extremities exam: Present: normal inspection, full ROM, normal capillary refill. Absent: tenderness, pedal edema, joint swelling, calf tenderness Back exam: Present: normal inspection Neurological exam: Present: alert, oriented X3, CN II-XII intact Psychiatric exam: Present: normal affect, normal mood Skin exam: Present: warm, dry, intact, normal color. Absent: rash Course Vital Signs 01/16/20 15:16 Temperature 99.4 F Pulse Rate 89 Respiratory 18 Rate Blood Pressure 117/75 O2 Sat by Pulse 92 L Oximetry - Reevaluation(s) Reevaluation #1: 01/16/20 18:11 Medical record is reviewed Reevaluation #2: 01/16/20 18:11 Symptoms significantly improved Reevaluation #3: 01/16/20 18:11 Patient is informed of results okay for discharge Medical Decision Making - Medical Decision Making 49 female DF for eval should've nausea vomiting diarrhea, patient is pending coronavirus will be discharged home to follow-up with primary care - Lab Data Result diagrams: 01/16/20 16:16 01/16/20 16:16 Lab Results 01/16/20 01/16/20 Range/Units 16:16 16:16 WBC 9.8 (3.8-10.6) k/uL RBC 4.87 (3.80-5.40) m/uL Hgb 13.7 (11.4-16.0) gm/dL Hct 40.5 (34.0-46.0) % MCV 83.1 (80.0-100.0) fL MCH 28.2 (25.0-35.0) pg MCHC 33.9 (31.0-37.0) g/dL RDW 14.2 (11.5-15.5) % Plt Count 428 (150-450) k/uL MPV 6.7 Neutrophils % 66 % Lymphocytes % 21 % Monocytes % 7 % Eosinophils % 2 % Basophils % 2 % Neutrophils # 6.5 (1.3-7.7) k/uL Lymphocytes # 2.0 (1.0-4.8) k/uL Monocytes # 0.7 (0-1.0) k/uL Eosinophils # 0.2 (0-0.7) k/uL Basophils # 0.2 (0-0.2) k/uL Sodium 136 L (137-145) mmol/L Potassium 4.4 (3.5-5.1) mmol/L Chloride 101 (98-107) mmol/L Carbon Dioxide 22 (22-30) mmol/L Anion Gap 13 mmol/L BUN 21 H (7-17) mg/dL Creatinine 0.70 (0.52-1.04) mg/dL Est GFR (CKD-EPI)AfAm >90 (>60 ml/min/1.73 sqM) Est GFR (CKD-EPI)NonAf >90 (>60 ml/min/1.73 sqM) Glucose 140 H (74-99) mg/dL Calcium 9.9 (8.4-10.2) mg/dL Phosphorus 3.2 (2.5-4.5) mg/dL Magnesium 1.3 L (1.6-2.3) mg/dL Total Bilirubin 0.8 (0.2-1.3) mg/dL AST 25 (14-36) U/L ALT 19 (4-34) U/L Alkaline Phosphatase 89 (38-126) U/L Total Protein 7.3 (6.3-8.2) g/dL Albumin 4.5 (3.5-5.0) g/dL - EKG Data -: EKG Interpreted by Me (EKG is sinus rhythm 85 MN 130 QRS 104 QTc 440) Disposition Clinical Impression: Dehydration, Gastroenteritis Disposition: HOME SELF-CARE Condition: Good Instructions (If sedation given, give patient instructions): Acute Nausea and Vomiting (ED), Acute Diarrhea (ED) Is patient prescribed a controlled substance at d/c from ED?: No Referrals: Nonstaff,Physician [Primary Care Provider] - 1-2 days
[2020-01-16 16:51] LABS: Basophils # (A) 0.2 k/uL (0-0.2); Basophils % (A) 2 %; Eosinophils # (A) 0.2 k/uL (0-0.7); Eosinophils % (A) 2 %; HCT 40.5 % (34.0-46.0); HGB 13.7 gm/dL (11.4-16.0); Lymphocytes % (A) 21 %; MCH 28.2 pg (25.0-35.0); MCHC 33.9 g/dL (31.0-37.0); MCV 83.1 fL (80.0-100.0); Mean Platelet Volume 6.7; Monocytes # (A) 0.7 k/uL (0-1.0); Monocytes % (A) 7 %; Neutrophils # (A) 6.5 k/uL (1.3-7.7); Neutrophils % (A) 66 %; Platelet Count 428 k/uL (150-450); RBC 4.87 m/uL (3.80-5.40); RDW 14.2 % (11.5-15.5); WBC 9.8 k/uL (3.8-10.6)
[2020-01-16 16:59] LABS: ALT 19 U/L (4-34); AST 25 U/L (14-36); African American GFR (CKD) >90 (>60 ml/min/1.73 sqM); Albumin 4.5 g/dL (3.5-5.0); Alkaline Phosphatase 89 U/L (38-126); Anion Gap 13 mmol/L; Blood Urea Nitrogen 21 mg/dL (7-17); Calcium 9.9 mg/dL (8.4-10.2); Carbon Dioxide 22 mmol/L (22-30); Chloride 101 mmol/L (98-107); Glucose 140 mg/dL (74-99); Magnesium 1.3 mg/dL (1.6-2.3); Non-African American GFR(CKD) >90 (>60 ml/min/1.73 sqM); Phosphorus 3.2 mg/dL (2.5-4.5); Potassium 4.4 mmol/L (3.5-5.1); Sodium 136 mmol/L (137-145); Total Bilirubin 0.8 mg/dL (0.2-1.3); Total Protein 7.3 g/dL (6.3-8.2)
[2020-01-16 18:54] VITALS: BP 120/78; PULSE 83; TEMP 99.3
== END 2020-01-16 18:53 | disposition home or self-care (01) ==
LOC: EC 14:54 → SUPCPDRO 14:54 → EC 18:53
DX: K52.9 Noninfective gastroenteritis and colitis, unspecified (principal); E86.0 Dehydration; I10 Essential (primary) hypertension; E11.40 Type 2 diabetes mellitus with diabetic neuropathy, unspecified; K21.9 Gastro-esophageal reflux disease without esophagitis; K22.70 Barrett's esophagus without dysplasia; Z79.84 Long term (current) use of oral hypoglycemic drugs; Z79.899 Other long term (current) drug therapy; Z91.048 Other nonmedicinal substance allergy status; Z85.828 Personal history of other malignant neoplasm of skin; Z87.891 Personal history of nicotine dependence; Z86.14 Personal history of Methicillin resistant Staphylococcus aureus infection; Z20.828 Contact with and (suspected) exposure to other viral communicable diseases
CPT/HCPCS: 80053; 83735; 84100; 85025; 99284; 96374; 96361 ×2; U0003; J2405

== ENCOUNTER 2020-01-29 07:31 | Day surgery (SDC) | payer OTHER ==
[2020-01-24 15:28] VITALS: BMI 31.7
[~2020-01-29 07:31] MED LIST: LACTATED RINGERS 1,000 ML IV SCH; LIDOCAINE 1% (10MG/ML) FOR IV START INTRADERMA PRN
[2020-01-29 08:06] VITALS: RESP 16; TEMP 97.7
[2020-01-29] MEDS ORDERED: PROPOFOL 10 MG/ML 20 ML VIAL IV ONE (08:15)
[2020-01-29] MEDS ORDERED: LIDOCAINE 1% INJ 10MG/ML (20 ML MDV) ONE (08:15)
--- NOTE | 2020-01-29 08:19 | P.GSHP ---
History of Present Illness H&P Date: 01/29/20 Chief Complaint: GERD, iron deficiency, colon cancer screening 49-year-old female here today for upper and lower endoscopy. History of chronic reflux. Takes Protonix daily. Symptoms fairly well controlled. No dysphagia. Last colonoscopy age 38. History of diverticulitis in the past. Told recently her iron was low. No rectal bleeding or melena. Past Medical History Past Medical History: Cancer, Diabetes Mellitus, GERD/Reflux, Hypertension Additional Past Medical History / Comment(s): hx. skin cancer, neuropathy feet, essential tremors, Martins's esophagus, states spastic colon, hx of diverticulit is, anemia History of Any Multi-Drug Resistant Organisms: MRSA Date of last positivie culture/infection: 2013 MDRO Source:: back Past Surgical History: Tonsillectomy Additional Past Surgical History / Comment(s): EGD, colonoscopy, abscess on back removed Past Anesthesia/Blood Transfusion Reactions: Family History of Problems w/ Anesthesia Additional Past Anesthesia/Blood Transfusion Reaction / Comment(s): grandparent after surgery-?related to anesthesia Smoking Status: Former smoker - Past Family History Mother Family Medical History: Deep Vein Thrombosis (DVT) Medications and Allergies Home Medications Medication Instructions Recorded Confirmed Type metFORMIN HCL [Glucophage] 1,000 mg PO BID 10/28/15 01/24/20 History Acetaminophen Tab [Tylenol] 1,000 mg PO Q6H PRN 01/24/19 01/24/20 History Gabapentin [Neurontin] 400 mg PO TID 01/24/19 01/24/20 History Ibuprofen [Motrin Ib] 600 mg PO Q6H PRN 01/24/19 01/24/20 History Multivitamins, Thera [Multivitamin] 1 tab PO DAILY #30 tablet 01/27/19 01/24/20 Rx Baclofen 10 mg PO BID 01/10/20 01/24/20 History Garlic 1 tab PO DAILY 01/10/20 01/24/20 History Hydrochlorothiazide 12.5 mg PO DAILY 01/10/20 01/24/20 History [hydroCHLOROthiazide] Loratadine [Claritin] 10 mg PO DAILY 01/10/20 01/24/20 History Losartan [Cozaar] 50 mg PO BID 01/10/20 01/24/20 History Nitroglycerin Sl Tabs [Nitrostat] 0.4 mg SUBLINGUAL Q5M PRN 01/10/20 01/24/20 History Pantoprazole [Protonix] 40 mg PO DAILY 01/10/20 01/24/20 History Supplement W/Vit C(Uk Strength 1 tab PO DAILY 01/16/20 01/24/20 History Allergies Allergy/AdvReac Type Severity Reaction Status Date / Time adhesive tape AdvReac Rash/Hives Verified 01/24/20 14:36 Surgical - Exam Vital Signs Temp Pulse Resp BP Pulse Ox 97.7 F 91 16 137/90 98 01/29/20 08:04 01/29/20 08:04 01/29/20 08:04 01/29/20 08:04 01/29/20 08:04 Physical exam: General: Well-developed, well-nourished HEENT: Normocephalic, sclerae nonicteric Abdomen: Nontender, nondistended Extremities: No edema Neuro: Alert and oriented Assessment and Plan (1) Colon cancer screening Narrative/Plan: Will proceed with colonoscopy at this time Current Visit: Yes Status: Acute Code(s): Z12.11 - ENCOUNTER FOR SCREENING FOR MALIGNANT NEOPLASM OF COLON SNOMED Code(s): 663214460
[2020-01-29 08:21] LABS: Glucose,Whole Blood 155 mg/dL (75-99)
--- NOTE | 2020-01-29 08:41 | P.PCN ---
Date of Procedure: 01/29/20 Procedure(s) Performed: PREOPERATIVE DIAGNOSIS: GERD, screening, iron deficiency POSTOPERATIVE DIAGNOSIS: Gastritis, hiatal hernia, diverticulosis, rectal polyp PROCEDURE: 1. EGD with biopsy 2. Colonoscopy with snare polypectomy ANESTHESIA: MAC SURGEON: Braydon Arnold M.D. SPECIMENS: Antrum, rectal polyp ENDOSCOPIC PROCEDURE: The patient was on the endoscopy table in the left decubitus position. The Olympus gastroscope was inserted into the oropharynx and passed under direct visualization to the region of the third portion of the duodenum. From that point the scope was slowly withdrawn inspecting all surfaces carefully. There were no neoplastic inflammatory or polypoid lesions throughout the duodenum. The pylorus was widely patent. The stomach was carefully inspected. There was mild gastritis present. A biopsy of the antrum took place to rule out H. pylori. Retroflexion revealed a moderate sized hiatal hernia. The esophagus was then carefully examined. There were no neoplastic inflammatory or polypoid lesions throughout the visualized esophagus. The patient was kept on the endoscopy table in the left decubitus position. The Olympus colonoscope was inserted into the anus and passed under direct visualization to the base of the cecum. The appendiceal orifice was visualized. From that point the scope was slowly withdrawn inspecting all surfaces carefully. There were no neoplastic inflammatory or polypoid lesions throughout the cecum, ascending, transverse, descending, and sigmoid colon. In the rectum a small polyp was seen and removed using the snare with cautery technique. There was moderate diverticulosis left colon. Digital rectal examination was normal. The patient was taken to the recovery room in stable condition per anesthesia guidelines. RECOMMENDATIONS: Await biopsy results. Continue antiacid therapy. Anticipate follow-up EGD in: 5 years.
[2020-01-29 09:05] VITALS: BP 123/72; PULSE 81
== END 2020-01-29 09:33 | disposition home or self-care (01) ==
LOC: ORWHC2ENDO 07:31
PROVIDERS: ATTEND Surgery
DX: K29.50 Unspecified chronic gastritis without bleeding (principal); K62.1 Rectal polyp; K44.9 Diaphragmatic hernia without obstruction or gangrene; K21.9 Gastro-esophageal reflux disease without esophagitis; D50.9 Iron deficiency anemia, unspecified; K57.30 Diverticulosis of large intestine without perforation or abscess without bleeding; Z87.19 Personal history of other diseases of the digestive system; I10 Essential (primary) hypertension; E11.42 Type 2 diabetes mellitus with diabetic polyneuropathy; G25.0 Essential tremor; K58.9 Irritable bowel syndrome, unspecified; Z85.828 Personal history of other malignant neoplasm of skin; K22.70 Barrett's esophagus without dysplasia; Z86.14 Personal history of Methicillin resistant Staphylococcus aureus infection; Z98.890 Other specified postprocedural states; Z87.891 Personal history of nicotine dependence; Z82.49 Family history of ischemic heart disease and other diseases of the circulatory system; Z79.84 Long term (current) use of oral hypoglycemic drugs; Z79.899 Other long term (current) drug therapy; Z91.09 Other allergy status, other than to drugs and biological substances
CPT/HCPCS: 88305; 45385; 43239; J2001; J2704

== ENCOUNTER 2020-08-26 12:16 | Day surgery (SDC) | payer OTHER ==
[2020-08-22 11:48] VITALS: BMI 30.9
[~2020-08-26 12:16] MED LIST changes: -LIDOCAINE 1% (10MG/ML) FOR IV START INTRADERMA PRN
[2020-08-26 12:51] VITALS: RESP 16; TEMP 97.5
[2020-08-26 12:59] LABS: Glucose,Whole Blood 140 mg/dL (75-99)
[2020-08-26] MEDS ORDERED: fentaNYL (PF) 50 MCG/ML 2 ML AMP ONE (13:03)
[2020-08-26] MEDS ORDERED: MIDAZOLAM 2 MG/2 ML VIAL ONE (13:03)
--- NOTE | 2020-08-26 13:24 | P.PCN ---
Date of Procedure: 08/26/20 Procedure(s) Performed: Preoperative diagnosis: Multiple sclerosis Post operative diagnoses: Multiple sclerosis Procedure= lumbar puncture Anesthesia = moderate sedations with versed 2 mg ,Fentanyle 50 mcg IV ,and local infiltration with lidocaine 1% 2 mL. Condition: stable Complication: none. Description of the procedure procedure risk and benefits discussed with the patient and family, consent signed. Patient and the procedure area placed in lateral position ( right side down ), back prepped with chlorhexidine 3 times been local infiltration of the skin and subcutaneous tissue with lidocaine 1% 2 mL for skin and subcu interstitial frustrations at L4 5 levels then 22-gauge Quincke-type needle advanced slowly at L4- 5 interlaminar space there was positive cerebrospinal fluid which was clear, no heme, no paresthesia ,total of 8 ML of clear cerebrospinal fluid collected in 4 different tubes 2 mL in each, then the needle removed and a Band-Aid applied and patient tolerated the procedure well without any complications.
[2020-08-26 13:43] VITALS: BP 121/82; PULSE 79
[2020-08-26 13:45] LABS: ALT 19 U/L (4-34); AST 24 U/L (14-36)
[2020-08-26 13:55] LABS: Appearance,CSF Clear; CSF Tube Volume 2; Nucleated Cells, CSF 0 u/L (0-5); Red Blood Cell,CSF 2 u/L (0-10)
[2020-08-26 14:00] LABS: T4, Free (Free Thyroxine) 1.04 ng/dL (0.78-2.19)
[2020-08-26 14:18] LABS: Glucose,CSF 74 mg/dL (40-70); Total Protein,CSF 109 mg/dL (12-60)
[2020-08-26 19:10] LABS: Rheumatoid Factor, Qnt 6 IU/mL (0-15)
[2020-08-26 20:32] LABS: Anti-DNA, DS unit <1.0 IU/mL; Anti-Smith Ab Interp NEGATIVE (NEGATIVE); DNA Double-Stranded NEGATIVE (NEGATIVE)
[2020-08-27 11:53] LABS: IgG - CSF 3.7 mg/dL (0.0 - 3.4); IgG Synthesis Rate 1.29 mg/day (0.00 - 3.00); IgG/Albumin Index (CSF) 0.54 (0.00 - 0.77); Immunoglobulin G 564 mg/dL (700 - 1600)
[2020-08-28 09:38] LABS: CSF Tube Number 4
[2020-08-29 11:08] LABS: VDRL, Qualitative CSF Nonreactive (Nonreactive)
== END 2020-08-26 14:04 | disposition home or self-care (01) ==
LOC: ORPAIN 12:16
PROVIDERS: ATTEND Specialist
DX: G35 Multiple sclerosis (principal); G37.9 Demyelinating disease of central nervous system, unspecified
CPT/HCPCS: 86592; 86235 ×3; 84439; 88108; 84157; 82945; 82040; 82042; 82784; 83916; 83873; 84443; 84450; 84460; 86431; 89050; 86618; 86780; 86038; 86225; 87801; 62270; J2250; J3010; 99152

== ENCOUNTER → 2022-02-15 | Outpatient (CLI) | payer OTHER ==
--- NOTE | 2022-02-15 14:58 | US ---
EXAMINATION TYPE: US thyroid st tissue head/neck DATE OF EXAM: 02/15/2022 COMPARISON: NONE CLINICAL HISTORY: E04.1 SINGLE THYROID NODULE. Nodule per order. Limited history from patient. GLAND SIZE: Right Lobe: 4.7 x 2.1 x 2.0 cm Overall Parenchyma: heterogenous Left Lobe: 3.6 x 1.6 x 1.1 cm Overall Parenchyma: heterogeneous Isthmus Thickness: 0.53 cm NODULES RIGHT: # of nodules measured on right: 0 LEFT: # of nodules measured on left: 1 1. 1.6 X 1.5 x 1.0 cm, mid mid, Prior size: No prior TIRADS Score: 7 TIRADS Category 5: Highly Suspicious Composition: Solid or almost completely solid (2 points). Echogenicity: Hyperechoic or isoechoic (1 point). Shape: Wider than tall (0 points). Margin: Smooth (0 points). Echogenic foci: None or large comet-tail artifacts (0 points) Macrocalcifications (1 point) Punctate echogenic foci (3 points) Recommendation: If >1cm: FNA; If >0.5cm: Follow annually for 5 years ISTHMUS: # of nodules measured in the isthmus: 0 Bilateral neck scanned, no evidence of lymphadenopathy. IMPRESSION: Left thyroid nodule which is suspicious and meets criteria for biopsy.
== END | disposition home or self-care (01) ==
LOC: RADUSWWP 13:58
PROVIDERS: ATTEND Family Medicine
DX: E04.1 Nontoxic single thyroid nodule (principal)
CPT/HCPCS: 76536

== ENCOUNTER 2022-07-29 12:35 | Observation (INO) | payer OTHER ==
[2022-07-29 13:20] LABS: Basophils # (A) 0.1 k/uL (0-0.2); Basophils % (A) 1 %; Eosinophils # (A) 0.1 k/uL (0-0.7); Eosinophils % (A) 1 %; HCT 41.5 % (34.0-46.0); HGB 13.6 gm/dL (11.4-16.0); Lymphocytes % (A) 11 %; MCH 27.1 pg (25.0-35.0); MCHC 32.7 g/dL (31.0-37.0); MCV 82.7 fL (80.0-100.0); Mean Platelet Volume 7.1; Monocytes # (A) 0.6 k/uL (0-1.0); Monocytes % (A) 6 %; Neutrophils # (A) 7.7 k/uL (1.3-7.7); Neutrophils % (A) 81 %; Platelet Count 319 k/uL (150-450); RBC 5.02 m/uL (3.80-5.40); RDW 15.4 % (11.5-15.5); WBC 9.6 k/uL (3.8-10.6)
[2022-07-29 13:34] LABS: ALT 23 U/L (4-34); AST 27 U/L (14-36); African American GFR (CKD) >90 (>60 ml/min/1.73 sqM); Albumin 4.3 g/dL (3.5-5.0); Alkaline Phosphatase 86 U/L (38-126); Anion Gap 17 mmol/L; Blood Urea Nitrogen 14 mg/dL (7-17); Calcium 9.2 mg/dL (8.4-10.2); Carbon Dioxide 22 mmol/L (22-30); Chloride 99 mmol/L (98-107); Glucose 141 mg/dL (74-99); Magnesium 1.7 mg/dL (1.6-2.3); Non-African American GFR(CKD) >90 (>60 ml/min/1.73 sqM); Potassium 3.9 mmol/L (3.5-5.1); Sodium 138 mmol/L (137-145); Total Bilirubin 0.7 mg/dL (0.2-1.3); Total Protein 6.7 g/dL (6.3-8.2)
[2022-07-29 13:35] LABS: Prothrombin Time 10.2 sec (9.0-12.0)
[2022-07-29 13:39] LABS: Partial Thromboplastin Time 21.9 sec (22.0-30.0)
[2022-07-29] MEDS ORDERED: PANTOPRAZOLE 40 MG/10 ML VIAL IVP STA (15:12)
--- NOTE | 2022-07-29 15:15 | ED ---
Chest Pain HPI - General Chief Complaint: Chest Pain Stated Complaint: Chest Pain Time Seen by Provider: 07/29/22 13:35 Source: patient Mode of arrival: wheelchair Limitations: no limitations - History of Present Illness Initial Comments: 51-year-old female with past medical history of hypertension, diabetes who presents to the emergency department with chest pain that radiates to her jaw. Symptoms started at 5 AM this morning and were significant. Reports that the pain has lightened up somewhat since it began. She describes it as a squeezing pressure sensation. Currently pain is graded as a 3 out of 10. She did not take anything for the symptoms. Denies fevers. Does have a chronic cough which she states is no worse than what it normally is. Admits nausea without vomiting. No numbness, tingling or weakness in her extremities. She has had a cardiac workup however this was done several years ago. Denies known cardiac disease. No other alleviating, precipitating or modifying factors - Related Data Home Medications Medication Instructions Recorded Confirmed Gabapentin [Neurontin] 400 mg PO TID PRN 01/24/19 07/29/22 Ibuprofen [Motrin Ib] 600 mg PO Q6H PRN 01/24/19 07/29/22 Losartan [Cozaar] 50 mg PO BID 01/10/20 07/29/22 hydroCHLOROthiazide 12.5 mg PO DAILY PRN 01/10/20 07/29/22 Empagliflozin/Metformin HCl 1 tab PO BID 07/29/22 07/29/22 [Synjardy 12.5-1,000 mg Tablet] Ferrous Sulfate [Feosol] 325 mg PO DAILY 07/29/22 07/29/22 HYDROcodone/APAP 10-325MG [[place] 1 tab PO QID PRN 07/29/22 07/29/22 10-325] Meloxicam [Mobic] 7.5 mg PO DAILY 07/29/22 07/29/22 Omeprazole 40 mg PO DAILY 07/29/22 07/29/22 hydroCHLOROthiazide [Hydrodiuril] 12.5 mg PO DAILY 07/29/22 07/29/22 Allergies Allergy/AdvReac Type Severity Reaction Status Date / Time adhesive tape AdvReac Rash/Hives Verified 07/29/22 14:20 Latex, Natural Rubber AdvReac Rash/Hives Verified 07/29/22 14:20 Review of Systems ROS Statement: Those systems with pertinent positive or pertinent negative responses have been documented in the HPI. ROS Other: All systems not noted in ROS Statement are negative. Past Medical History Past Medical History: Cancer, Diabetes Mellitus, GERD/Reflux, Hypertension, Thyroid Disorder Additional Past Medical History / Comment(s): hx. skin cancer, neuropathy hands and feet, essential tremors, IBS, hx of diverticulitis, anemia, thyroid nodule History of Any Multi-Drug Resistant Organisms: MRSA Date of last positivie culture/infection: 2013 MDRO Source:: back Past Surgical History: Tonsillectomy Additional Past Surgical History / Comment(s): EGD, colonoscopy, abscess on back removed Past Anesthesia/Blood Transfusion Reactions: Family History of Problems w/ Anesthesia Additional Past Anesthesia/Blood Transfusion Reaction / Comment(s): grandparent after surgery-?related to anesthesia Past Psychological History: No Psychological Hx Reported Smoking Status: Former smoker Past Alcohol Use History: Rare Past Drug Use History: None Reported - Past Family History Mother Family Medical History: Deep Vein Thrombosis (DVT) General Exam Limitations: no limitations General appearance: alert, in no apparent distress Head exam: Present: atraumatic, normocephalic, normal inspection Eye exam: Present: normal appearance, PERRL, EOMI. Absent: scleral icterus, conjunctival injection, periorbital swelling ENT exam: Present: normal exam, mucous membranes moist Neck exam: Present: normal inspection. Absent: tenderness, meningismus, lymphadenopathy Respiratory exam: Present: normal lung sounds bilaterally. Absent: respiratory distress, wheezes, rales, rhonchi, stridor Cardiovascular Exam: Present: normal rhythm, tachycardia, normal heart sounds. Absent: systolic murmur, diastolic murmur, rubs, gallop, clicks GI/Abdominal exam: Present: soft, normal bowel sounds. Absent: distended, tenderness, guarding, rebound, rigid Extremities exam: Present: normal inspection, full ROM, normal capillary refill. Absent: tenderness, pedal edema, joint swelling, calf tenderness Back exam: Present: normal inspection Neurological exam: Present: alert, oriented X3, CN II-XII intact Psychiatric exam: Present: normal affect, normal mood Skin exam: Present: warm, dry, intact, normal color. Absent: rash Course Vital Signs 06/08/23 06/08/23 06/08/23 12:37 14:37 16:03 Temperature 98.0 F Pulse Rate 107 H 97 106 H Respiratory 22 18 16 Rate Blood Pressure 146/85 123/82 125/81 O2 Sat by Pulse 98 95 99 Oximetry Chest Pain MDM - MDM Was pt. sent in by a medical professional or institution (, [facility], [facility], urgent care, hospital, or residential...) When possible be specific @ -No Did you speak to anyone other than the patient for history (EMS, parent, family, police, friend...)? What history was obtained from this source @ -No Did you review nursing and triage notes (agree or disagree)? Why? @ -I reviewed and agree with nursing and triage notes Were old charts reviewed (outside hosp., previous admission, EMS record, old EKG, old radiological studies, urgent care reports/EKG's, residential records)? Report findings @ -No old charts were reviewed Differential Diagnosis (chest pain, altered mental status, abdominal pain women, abdominal pain men, vaginal bleeding, weakness, fever, dyspnea, syncope, headache, dizziness, GI bleed, back pain, seizure, CVA, palpatations, mental health, musculoskeletal)? @ -Differential Chest Pain: Stable Angina, Unstable Angina, STEMI, NSTEMI Aortic Dissection, Pneumothorax, Musculoskeletal, Esophageal Spasm GERD, Cholecystitis, Pancreatitis, Zoster, this is not meant to be an all-inclusive list. EKG interpreted by me (3pts min.). @ -EKG interpreted by me and demonstrates sinus tachycardia with a rate of 101. LA interval 148. QRS 88. QTC of 391. No acute ST segment elevations or depressions X-rays interpreted by me (1pt min.). @ -Yes and demonstrates no acute process CT interpreted by me (1pt min.). @ -None done U/S interpreted by me (1pt. min.). @ -None done What testing was considered but not performed or refused? (CT, X-rays, U/S, labs)? Why? @ -None What meds were considered but not given or refused? Why? @ -None Did you discuss the management of the patient with other professionals (professionals i.e. , [facility], [facility], lab, RT, psych nurse, criminal justice social worker, trial court justice, teacher, workplace rehabilitation officer, cyanide case hardener)? Give summary @ -I spoke with Dr. Forte in regards to patient management Was smoking cessation discussed for >3mins.? @ -No Was critical care preformed (if so, how long)? @ -No Were there social determinants of health that impacted care today? How? (Homelessness, low income, unemployed, alcoholism, drug addiction, transportation, low edu. Level, literacy, decrease access to med. care, nursing home, rehab)? @ -No Was there de-escalation of care discussed even if they declined (Discuss DNR or withdrawal of care, Hospice)? DNR status @ -No What co-morbidities impacted this encounter? (DM, HTN, Smoking, COPD, CAD, Cancer, CVA, ARF, Chemo, Hep., AIDS, mental health diagnosis, sleep apnea, morbid obesity)? @ -Hypertension, hyperlipidemia, diabetes Was patient admitted / discharged? Hospital course, mention meds given and route, prescriptions, significant lab abnormalities, going to OR and other pertinent info. @ -Upon arrival patient was placed in room 16. Thorough history and physical exam was performed. She is placed on continuous pulse ox and cardiac monitoring. 12-lead EKG was obtained. Lab studies are conducted and reviewed. Patient was given an aspirin and Nitropaste was applied to the chest. She is also given 40 mg of Protonix. Chest x-ray was performed and demonstrates questionable atelectasis versus pneumonia. Patient has not had any increase in her cough and has no fevers. Recommended admission in order trend her troponins and get an echo. Patient was agreeable to this. Spoke with Dr. Forte who was agreeable to admit the patient Undiagnosed new problem with uncertain prognosis? @ -yes Drug Therapy requiring intensive monitoring for toxicity (Heparin, Nitro, Insulin, Cardizem)? @ -No Were any procedures done? @ -No Diagnosis/symptom? @ -Acute chest pain, sinus tachycardia, possible ACS Acute, or Chronic, or Acute on Chronic? @ -Acute Uncomplicated (without systemic symptoms) or Complicated (systemic symptoms)? @ -Complicated Side effects of treatment? @ -No Exacerbation, Progression, or Severe Exacerbation? @ -No Poses a threat to life or bodily function? How? (Chest pain, [place], [place], pneumonia, PE, COPD, DKA, ARF, appy, cholecystitis, CVA, Diverticulitis, Homicidal, Suicidal, threat to staff... and all critical care pts) @ -Yes chest pain could signify cardiac event which could be due to cardiac decompensation Disposition Clinical Impression: Chest pain Disposition: ADMITTED IP TO THIS HOSP Condition: Stable Is patient prescribed a controlled substance at d/c from ED?: No Time of Disposition: 15:56 Decision to Admit Reason: Admit from EC Decision Date: 07/29/22 Decision Time: 15:56
--- NOTE | 2022-07-29 15:20 | XR ---
EXAMINATION TYPE: XR chest 2V DATE OF EXAM: 07/29/2022 COMPARISON: NONE TECHNIQUE: PA and lateral views submitted. HISTORY: 05/27/2018 FINDINGS: There is subsegmental left perihilar and lower lobe consolidation. There is no pleural effusion or pn eumothorax. Heart size normal and no overt failure. Osseous structures demonstrate hypertrophic and degenerative changes of the spine. There is a moderate-sized hiatal hernia. There is hyperinflation o f the lungs. IMPRESSION: 1. No acute process. Left perihilar and lower lobe subsegmental atelectasis or early pneumonia correl ate clinically. 2. Correlate for COPD.
[2022-07-29] MEDS ORDERED: NALOXONE 0.4 MG/ML 1 ML VIAL IV PRN (15:57)
[2022-07-29] MEDS ORDERED: ASPIRIN 81 MG PO STA (16:02)
[2022-07-29] MEDS ORDERED: NITROGLYCERIN OINT 1 INCH/GM PACKET TOPICAL STA (16:02)
[2022-07-29] MEDS ORDERED: GABAPENTIN 400 MG CAP PO PRN (16:52)
[2022-07-29] MEDS ORDERED: DEXTROSE 50% SYRINGE 50 ML IVP PRN ×2 (16:55)
[2022-07-29] MEDS ORDERED: MELATONIN 3 MG TABLET PO PRN (16:56)
[2022-07-29] MEDS ORDERED: ONDANSETRON 4 MG/2 ML VIAL IVP PRN (16:56)
--- NOTE | 2022-07-29 16:59 | P.HPIM ---
History of Present Illness H&P Date: 07/29/22 Patient is a 1 of diabetes mellitus type 2, dyslipidemia, and hypertension who presented to the ER with complaints of chest pain. On arrival to the ER she was found to be tachycardic with a pulse of 107. Initial laboratory analysis was unremarkable. Troponin was negative at 0.012. EEG is reviewed by myself reveals sinus tachycardia at a rate of 101, left access deviation, with no significant ST-T wave changes. Chest x-ray demonstrated a left perihilar and lower lobe subsegmental atelectasis with hiatal hernia Patient seen and examined at bedside. She reports that she developed some chest discomfort early this morning around 4- 5 AM and she reports that she started h aving left-sided chest pain that radiated up into her jaw and into her shoulder. She reports that she had some radiation to her right shoulder. She is unsure if she had any radiation down her arms. She does report some nausea without vomiting. She denies any significant shortness of breath, diaphoresis. She does report some dizziness. She states that her pain was greater than a 10 out of 10 when it started minutes currently at 3 out of 10. She initially thought it was due to acid reflux that she has had issues with this in the past, however her coworkers convinced her to come to the hospital for chest pain when it was continuing this morning at work. She does report that right before this she ate a bowl of mac & cheese. He denies any recent changes in her medications other than resuming [id number] iron. She has significant issues with neuropathy. She has no other complaints currently. Vital signs reviewed General: nontoxic, no distress, appears at stated age Eyes: EOMI, no lid lag, anicteric sclera, pupils equal round reactive to light ENT: Nose and ears atraumatic, no thrush, no pharyngeal erythema Cardiovascular: S1S2 reg, no murmur, positive posterior tibial pulse bilateral, no edema, capillary refill less than 2 seconds, increased chest pain with palpation over chest wall Lungs: clear to auscultation bilateral, no rhonchi, no rales, no wheeze, no accessory muscle use Abdominal: soft, nontender to palpation, no guarding, no appreciable organomegaly, normal bowel sounds Ext: no gross muscle atrophy, no contractures Neuro: CN II-XII grossly intact, no focal neuro deficits Psych: Alert, oriented, blunted affect Assessment: Chest pain Imaging: Chest x-ray as reviewed by myself reveals possible left lower lobe atelectasis versus infiltrate with securing of the left heart border Data Review: As per HPI Plan: - Place in observation -Trend serial troponin, echo in a.m., nothing by mouth after midnight, consult cardiology -Telemetry -Check gallbladder ultrasound -Resume home PPI -Resume home [place] -Sliding-scale insulin, hold oral diabetic medications -Resume hydrochlorothiazide, Cozaar, and follow blood pressures - check lipid profile - check gallbladder ultrasound The patient is admitted with an anticipated less than 2 midnight stay for evaluation of chest pain. DVT prophylaxis: SCDs Discussed with: Patient, ED provider Anticipated discharge date: Pending Clinical Course Anticipated discharge place: Pending Clinical Course This dictation was prepared using [employer] voice recognition software. Though every attempt is made to correct errors during dictation some may still exist. Past Medical History Past Medical History: Cancer, Diabetes Mellitus, GERD/Reflux, Hypertension, Thyroid Disorder Additional Past Medical History / Comment(s): hx. skin cancer, neuropathy hands and feet, essential tremors, IBS, hx of diverticulitis, anemia, thyroid nodule History of Any Multi-Drug Resistant Organisms: MRSA Date of last positivie culture/infection: 2013 MDRO Source:: back Past Surgical History: Tonsillectomy Additional Past Surgical History / Comment(s): EGD, colonoscopy, abscess on back removed Past Anesthesia/Blood Transfusion Reactions: Family History of Problems w/ Anesthesia Additional Past Anesthesia/Blood Transfusion Reaction / Comment(s): grandparent after surgery-?related to anesthesia Past Psychological History: No Psychological Hx Reported Smoking Status: Former smoker Past Alcohol Use History: Rare Past Drug Use History: None Reported - Past Family History Mother Family Medical History: Deep Vein Thrombosis (DVT) Medications and Allergies Home Medications Medication Instructions Recorded Confirmed Type Gabapentin [Neurontin] 400 mg PO TID PRN 01/24/19 07/29/22 History Ibuprofen [Motrin Ib] 600 mg PO Q6H PRN 01/24/19 07/29/22 History Losartan [Cozaar] 50 mg PO BID 01/10/20 07/29/22 History hydroCHLOROthiazide 12.5 mg PO DAILY PRN 01/10/20 07/29/22 History Empagliflozin/Metformin HCl 1 tab PO BID 07/29/22 07/29/22 History [Synjardy 12.5-1,000 mg Tablet] Ferrous Sulfate [Feosol] 325 mg PO DAILY 07/29/22 07/29/22 History HYDROcodone/APAP 10-325MG [[place] 1 tab PO QID PRN 07/29/22 07/29/22 History 10-325] Meloxicam [Mobic] 7.5 mg PO DAILY 07/29/22 07/29/22 History Omeprazole 40 mg PO DAILY 07/29/22 07/29/22 History hydroCHLOROthiazide [Hydrodiuril] 12.5 mg PO DAILY 07/29/22 07/29/22 History Allergies Allergy/AdvReac Type Severity Reaction Status Date / Time adhesive tape AdvReac Rash/Hives Verified 07/29/22 14:20 Latex, Natural Rubber AdvReac Rash/Hives Verified 07/29/22 14:20 Physical Exam Osteopathic Statement: *. No significant issues noted on an osteopathic structural exam other than those noted in the History and Physical/Consult. Vitals: Vital Signs Temp Pulse Resp BP Pulse Ox 07/29/22 16:03 106 H 16 125/81 99 07/29/22 14:37 97 18 123/82 95 07/29/22 12:37 98.0 F 107 H 22 146/85 98 Intake and Output 07/29/22 07/29/22 07/29/22 06:59 14:59 22:59 Other: Weight 79.379 kg Results CBC & Chem 7: 07/29/22 12:54 07/29/22 12:54 Labs: Abnormal Lab Results - Last 24 Hours (Table) 07/29/22 07/29/22 Range/Units 12:54 12:54 APTT 21.9 L (22.0-30.0) sec Creatinine 0.51 L (0.52-1.04) mg/dL Glucose 141 H (74-99) mg/dL
[2022-07-29 18:03] LABS: Glucose,Whole Blood 188 mg/dL (70-110)
[2022-07-29] MEDS: HYDROcodone/APAP 10-325MG 1 EACH TAB PO PRN (18:26)
[2022-07-29] MEDS: INSULIN ASPART (NovoLOG) 100 UNIT/ML VIAL SQ SCH ×2 (18:32→21:43)
[2022-07-29 21:32] LABS: Glucose,Whole Blood 164 mg/dL (70-110)
--- NOTE | 2022-07-29 21:36 | US ---
EXAMINATION TYPE: US gallbladder DATE OF EXAM: 07/29/2022 COMPARISON: 09/06/16 CT 01/24/2019. CLINICAL INDICATION: Female, 51 years old with history of pain; Pt states she is not having abd pain. Not NPO TECHNIQUE: Multiple sonographic images of the right upper quadrant are obtained. FINDINGS: EXAM MEASUREMENTS: Liver Length: 18.1 cm Gallbladder Wall: 0.27 cm CBD: 0.41 cm Right Kidney: 10.5 x 5.1 x 4.5 cm TEACHER NOTES: Pancreas: Parts visualized appear wnl Liver: wnl Gallbladder: Contracted due to pt eating. Evidence for sonographic Stephen's sign: No CBD: wnl Right Kidney: wnl IMPRESSION: Contracted gallbladder No evidence for acute abdominal process.
[2022-07-29] MEDS: LOSARTAN 50 MG TAB PO SCH (21:42)
[2022-07-30 07:17] LABS: Basophils # (A) 0.1 k/uL (0-0.2); Basophils % (A) 1 %; Eosinophils # (A) 0.2 k/uL (0-0.7); Eosinophils % (A) 3 %; HCT 39.9 % (34.0-46.0); HGB 12.8 gm/dL (11.4-16.0); Lymphocytes # (A) 1.9 k/uL (1.0-4.8); Lymphocytes % (A) 25 %; MCH 26.8 pg (25.0-35.0); MCHC 32.2 g/dL (31.0-37.0); MCV 83.1 fL (80.0-100.0); Mean Platelet Volume 7.1; Monocytes # (A) 0.5 k/uL (0-1.0); Monocytes % (A) 6 %; Neutrophils # (A) 4.8 k/uL (1.3-7.7); Neutrophils % (A) 63 %; Platelet Count 302 k/uL (150-450); RDW 15.5 % (11.5-15.5); WBC 7.6 k/uL (3.8-10.6)
[2022-07-30] MEDS ORDERED: PANTOPRAZOLE 40 MG TABLET PO SCH (07:30)
[2022-07-30 07:38] LABS: African American GFR (CKD) >90 (>60 ml/min/1.73 sqM); Anion Gap 8 mmol/L; Blood Urea Nitrogen 15 mg/dL (7-17); Calcium 8.9 mg/dL (8.4-10.2); Carbon Dioxide 30 mmol/L (22-30); Chloride 99 mmol/L (98-107); Glucose 154 mg/dL (74-99); Non-African American GFR(CKD) >90 (>60 ml/min/1.73 sqM); Sodium 137 mmol/L (137-145)
[2022-07-30 08:08] LABS: Glucose,Whole Blood 145 mg/dL (70-110)
[2022-07-30] MEDS: LOSARTAN 50 MG TAB PO SCH (08:26)
[2022-07-30] MEDS: HYDROcodone/APAP 10-325MG 1 EACH TAB PO PRN ×2 (08:27→14:32)
[2022-07-30] MEDS: INSULIN ASPART (NovoLOG) 100 UNIT/ML VIAL SQ SCH ×2 (08:31→12:56)
[2022-07-30] MEDS ORDERED: FERROUS SULFATE 325 MG TAB PO SCH (09:00)
[2022-07-30] MEDS ORDERED: hydroCHLOROthiazide 12.5 MG CAP PO SCH (09:00)
--- NOTE | 2022-07-30 10:48 | P.CRDCN ---
History of Present Illness History of present illness: HISTORY OF PRESENT ILLNESS: This is a 51-year-old female with a past medical history significant for diabetes, neuropathy, and hypertension. 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 We have been asked to see the patient in consultation for chest pain. Patient examined at the bedside. Patient states that 2 nights ago she woke up at 5:00 in the morning with chest pain. She also reports having pain in the left part of her neck. She states that she got it was heartburn and can of brushed it off. She states the next day around noon she had chest pain again. She also reports that she was coughing on her way to work which made her chest pain worse. She states that she was talking to her coworkers about this who recommended that she come to the hospital to get evaluated. At the time of examination she denies any chest pain or pressure. She states that she has had episodes like this in the past and has always related to heartburn and has never sought out evaluation. She reports a history of coronary artery disease in her dad's side. * EKG reveals sinus mechanism with no signs of acute ischemia * Chest xray no acute process. Left perihilar and lower lobe subsegmental atelectasis or early pneumonia. Correlate for COPD. * Laboratory data: WBC 7.6. Hemoglobin 12.8. Platelet count 302. Sodium 137. Potassium 4.0. BUN 15. Creatinine 0.62. Troponin negative 3. * Current home cardiac medications include hydrochlorothiazide 12.5 mg daily and losartan 50 mg twice a day REVIEW OF SYSTEMS: At the time of my exam: CONSTITUTIONAL: Denies fever or chills. HEENT: Denies blurred vision, vision changes, or eye pain. Denies hemoptysis CARDIOVASCULAR: Denies chest pain. Denies orthopnea. Denies PND. Denies palpi tations RESPIRATORY: Denies shortness of breath. GASTROINTESTINAL: Denies abdominal pain. Denies nausea or vomiting. HEMATOLOGIC: Denies bleeding disorders. GENITOURINARY: Denies any blood in urine. SKIN: Denies pruitis. Denies rash. PHYSICAL EXAM: VITAL SIGNS: Reviewed. GENERAL: Well-developed in no acute distress. HEENT: Head is normocephalic. Pupils are equal, round. Sclerae anicteric. Mucous membranes of the mouth are moist. Neck supple. No JVD or thyromegaly LUNGS: Respirations even and unlabored. Lungs essentially clear to auscultation bilaterally. HEART: Regular rate and rhythm. S1 and S2 heard. ABDOMEN: Soft. Nondistended. Nontender. EXTREMITIES: Normal range of motion. No clubbing or cyanosis. Peripheral pulses intact. No lower extremity edema NEUROLOGIC: Awake and alert. Oriented x 3. ASSESSMENT: Chest pain, troponins negative 3 Hypertension Diabetes Neuropathy PLAN: Acute coronary and has been ruled out Resume home cardiac medications Patient to undergo stress echocardiogram today Obtain 2-D echo to assess cardiac structure and function If stress test is negative, patient may be discharged home today from a cardiac standpoint Nurse practitioner note has been reviewed by physician. Signing provider agrees with the documented findings, assessment, and plan of care. Past Medical History Past Medical History: Cancer, Diabetes Mellitus, GERD/Reflux, Hypertension, Thyroid Disorder Additional Past Medical History / Comment(s): hx. skin cancer, neuropathy hands and feet, essential tremors, IBS, hx of diverticulitis, anemia, thyroid nodule History of Any Multi-Drug Resistant Organisms: MRSA Date of last positivie culture/infection: 2013 MDRO Source:: back Past Surgical History: Tonsillectomy Additional Past Surgical History / Comment(s): EGD, colonoscopy, abscess on back removed Past Anesthesia/Blood Transfusion Reactions: Family History of Problems w/ Anesthesia Additional Past Anesthesia/Blood Transfusion Reaction / Comment(s): grandparent after surgery-?related to anesthesia Past Psychological History: No Psychological Hx Reported Smoking Status: Former smoker Past Alcohol Use History: Rare Past Drug Use History: None Reported - Past Family History Mother Family Medical History: Deep Vein Thrombosis (DVT) Medications and Allergies Home Medications Medication Instructions Recorded Confirmed Type Gabapentin [Neurontin] 400 mg PO TID PRN 01/24/19 07/29/22 History Ibuprofen [Motrin Ib] 600 mg PO Q6H PRN 01/24/19 07/29/22 History Losartan [Cozaar] 50 mg PO BID 01/10/20 07/29/22 History hydroCHLOROthiazide 12.5 mg PO DAILY PRN 01/10/20 07/29/22 History Empagliflozin/Metformin HCl 1 tab PO BID 07/29/22 07/29/22 History [Synjardy 12.5-1,000 mg Tablet] Ferrous Sulfate [Feosol] 325 mg PO DAILY 07/29/22 07/29/22 History HYDROcodone/APAP 10-325MG [[place] 1 tab PO QID PRN 07/29/22 07/29/22 History 10-325] Meloxicam [Mobic] 7.5 mg PO DAILY 07/29/22 07/29/22 History Omeprazole 40 mg PO DAILY 07/29/22 07/29/22 History hydroCHLOROthiazide [Hydrodiuril] 12.5 mg PO DAILY 07/29/22 07/29/22 History Allergies Allergy/AdvReac Type Severity Reaction Status Date / Time adhesive tape AdvReac Rash/Hives Verified 07/29/22 14:20 Latex, Natural Rubber AdvReac Rash/Hives Verified 07/29/22 14:20 Physical Exam Vitals: Vital Signs Temp Pulse Resp BP Pulse Ox 07/30/22 08:21 83 18 119/76 95 07/30/22 06:00 80 18 118/79 97 07/30/22 04:00 98.1 F 82 18 115/61 99 07/30/22 01:00 84 16 110/69 95 07/29/22 23:55 98.4 F 82 16 114/69 97 07/29/22 22:30 93 16 110/62 95 07/29/22 16:03 106 H 16 125/81 99 07/29/22 14:37 97 18 123/82 95 07/29/22 12:37 98.0 F 107 H 22 146/85 98 Results 07/30/22 06:27 07/30/22 06:27 Cardiac Enzymes 07/29/22 07/29/22 07/29/22 Range/Units 12:54 12:54 18:19 AST 27 (14-36) U/L Troponin I <0.012 <0.012 (0.000-0.034) ng/mL 07/29/22 Range/Units 21:04 AST (14-36) U/L Troponin I <0.012 (0.000-0.034) ng/mL Coagulation 07/29/22 Range/Units 12:54 PT 10.2 (9.0-12.0) sec APTT 21.9 L (22.0-30.0) sec CBC 07/29/22 07/30/22 Range/Units 12:54 06:27 WBC 9.6 7.6 (3.8-10.6) k/uL RBC 5.02 4.80 (3.80-5.40) m/uL Hgb 13.6 12.8 (11.4-16.0) gm/dL Hct 41.5 39.9 (34.0-46.0) % Plt Count 319 302 (150-450) k/uL Comprehensive Metabolic Panel 07/29/22 07/30/22 Range/Units 12:54 06:27 Sodium 138 137 (137-145) mmol/L Potassium 3.9 4.0 (3.5-5.1) mmol/L Chloride 99 99 (98-107) mmol/L Carbon Dioxide 22 30 (22-30) mmol/L BUN 14 15 (7-17) mg/dL Creatinine 0.51 L 0.62 (0.52-1.04) mg/dL Glucose 141 H 154 H (74-99) mg/dL Calcium 9.2 8.9 (8.4-10.2) mg/dL AST 27 (14-36) U/L ALT 23 (4-34) U/L Alkaline Phosphatase 86 (38-126) U/L Total Protein 6.7 (6.3-8.2) g/dL Albumin 4.3 (3.5-5.0) g/dL Current Medications Generic Name Dose Route Start Last Admin Trade Name Freq PRN Reason Stop Dose Admin Hydrocodone Bitart/Acetaminophen 1 each 07/29/22 16:52 07/30/22 08:27 Hydrocodone/Apap 10-325mg 1 Each Tab PO 1 each QID PRN Administration Pain Dextrose/Water 25 ml 07/29/22 16:55 Dextrose 50% Syringe 50 Ml IVP PER PROTOCOL PRN Hypoglycemia Protocol Dextrose/Water 50 ml 07/29/22 16:55 Dextrose 50% Syringe 50 Ml IVP PER PROTOCOL PRN Hypoglycemia Protocol Ferrous Sulfate 325 mg 07/30/22 09:00 07/30/22 08:26 Ferrous Sulfate 325 Mg Tab PO 325 mg DAILY ALIVIA Administration Gabapentin 400 mg 07/29/22 16:52 07/29/22 21:42 Gabapentin 400 Mg Cap PO 400 mg TID PRN Administration NERVE PAIN Hydrochlorothiazide 12.5 mg 07/30/22 09:00 07/30/22 08:26 Hydrochlorothiazide 12.5 Mg Cap PO 12.5 mg DAILY ALIVIA Administration Insulin Aspart 0 unit 07/29/22 17:30 07/30/22 08:31 Insulin Aspart (Novolog) 100 Unit/Ml Vial SQ Not Given ACHS [facility] Protocol Losartan Potassium 50 mg 07/29/22 21:00 07/30/22 08:26 Losartan 50 Mg Tab PO 50 mg BID AILVIA Administration Melatonin 3 mg 07/29/22 16:56 Melatonin 3 Mg Tablet PO HS PRN Insomnia Naloxone HCl 0.2 mg 07/29/22 15:57 Naloxone 0.4 Mg/Ml 1 Ml Vial IV Q2M PRN Opioid Reversal Ondansetron HCl 4 mg 07/29/22 16:56 Ondansetron 4 Mg/2 Ml Vial IVP Q8HR PRN Nausea And Vomiting Pantoprazole Sodium 40 mg 07/30/22 07:30 07/30/22 08:26 Pantoprazole 40 Mg Tablet PO 40 mg [id number] ALIVIA Administration 07/30/22 06:27 07/30/22 06:27
[2022-07-30 11:03] LABS: Chol/HDL Ratio 3.87 Ratio
[2022-07-30] MEDS ORDERED: REGADENOSON 0.4 MG/5 ML SYRINGE IV PRN (11:27)
[2022-07-30] MEDS ORDERED: CAFFEINE CITRATE 60 MG/3 ML VIAL IV PRN (11:27)
[2022-07-30] MEDS ORDERED: AMINOPHYLLINE 500 MG/20 ML VIAL IV PRN (11:27)
[2022-07-30] MEDS ORDERED: DOBUTamine DRIP for NUC MED 500 MG in DEXTROSE/WATER 1 250ML.BAG IV PRN (11:45)
[2022-07-30 12:55] LABS: Glucose,Whole Blood 140 mg/dL (70-110)
[2022-07-30 12:59] VITALS: RESP 18
--- NOTE | 2022-07-30 13:15 | CA ---
Transthoracic Echo Report Name: Pallavi Sterling Age: 51 Gender: F : 1970 Exam Date: 07/30/2022 07:43 Exam Location: [facility] Ht (in): 64 Wt (lb): 175 Ordering Physician: Shira Miller DO Attending/Referring Phys: [id number], Angela Patient Observer Jayne Trujillo, RD Procedure CPT: Indications: Chest Pain Cardiac Hx: Technical Quality: Good Contrast 1: Total Dose (mL): Contrast 2: Total Dose (mL): MEASUREMENTS (Male / Female) Normal Values 2D ECHO LV Diastolic Diameter PLAX 4.6 cm 4.2 - 5.9 / 3.9 - 5.3 cm LV Systolic Diameter PLAX 2.8 cm IVS Diastolic Thickness 1.1 cm 0.6 - 1.0 / 0.6 - 0.9 cm LVPW Diastolic Thickness 1.1 cm 0.6 - 1.0 / 0.6 - 0.9 cm LV Relative Wall Thickness 0.5 RV Internal Dim ED PLAX 3.3 cm LA Systolic Diameter LX 3.8 cm 3.0 - 4.0 / 2.7 - 3.8 cm LV Diastolic Volume MOD 4C 76.2 cm??? LV Systolic Volume MOD 4C 30.2 cm??? LV Ejection Fraction MOD 4C 60.4 % LV Cardiac Index MOD 4C 1944.7 cm???/min???m??? LV Diastolic Length 4C 9.5 cm LV Systolic Length 4C 7.5 cm LV Diastolic Volume MOD 2C 85.7 cm??? LV Systolic Volume MOD 2C 34.0 cm??? LV Ejection Fraction MOD 2C 60.4 % LV Cardiac Index MOD 2C 2182.9 cm???/min???m??? LV Diastolic Length 2C 8.9 cm LV Systolic Length 2C 6.8 cm LA Volume 40.0 cm??? 18 - 58 / 22 - 52 cm??? M-MODE Aortic Root Diameter MM 3.4 cm MV E Point Septal Separation 0.7 cm AV Cusp Separation MM 2.5 cm DOPPLER AV Peak Velocity 149.1 cm/s AV Peak Gradient 8.9 mmHg MV Area PHT 2.2 cm??? Mitral E Point Velocity 90.1 cm/s Mitral A Point Velocity 115.4 cm/s Mitral E to A Ratio 0.8 MV Deceleration Time 342.8 ms MV E' Velocity 7.6 cm/s Mitral E to MV E' Ratio 11.8 TR Peak Velocity 232.9 cm/s TR Peak Gradient 21.7 mmHg Right Ventricular Systolic Press 26.7 mmHg FINDINGS Left Ventricle Left ventricular ejection fraction is estimated at 60-65 %. Left ventricular cavity size normal. Mildly increased septal wall thickness. Mildly increased posterior wall thickness. Right Ventricle Mild right ventricular dilatation. Right ventricular systolic pressure within normal limits. Right Atrium Normal right atrial size. Left Atrium Normal left atrial size. Mitral Valve Structurally normal mitral valve. Trace mitral regurgitation. Aortic Valve Trileaflet aortic valve. No aortic valve stenosis or regurgitation. Tricuspid Valve Structurally normal tricuspid valve. Trace to mild tricuspid regurgitation. Pulmonic Valve Structurally normal pulmonic valve. No pulmonic regurgitation. Pericardium Normal pericardium. No pericardial effusion. Aorta Normal size aortic root and proximal ascending aorta. CONCLUSIONS Normal biventricular dimension and systolic function Previewed by: Dr. Figueroa Farias MD (Electronically Signed) Final Date: 30 July 2022 13:14
--- NOTE | 2022-07-30 13:23 | CA ---
Dobutamine Stress Echocardiogram Report Pallavi Sterling Age: 51 Gender: F : 1970 Exam Date: 07/30/2022 11:58 Exam Location: [facility] Ordering Physician: Rae King Referring Physician: Fernando ZHAO Orchard Manager: JOE Technologist: Ht (in): 64 Wt (lb): 175 Procedure CPT: Indication: CP ICD-9 Codes: Rhythm: Patient History: Cardiac Medications: SEE CHART Medications in past 24 hours: Contrast: Lumason Total Dose (mL): 5 Stress Results Protocol: Dobutamine Peak Dose (???g/kg/min): 40 Duration (min:sec): Atropine:(mg) 0.5 Target HR: 142 Double Product: [id number] Resting HR: 99 Resting BP: 113 / 73 Peak HR: 150 Peak BP: 143 / 67 Max Predicted HR: 167 90 % Max Predicted HR Stress Summary: BP Response: Reason for Termination: Exceeded target heart rate (85% max predicted) Cardiac Symptoms: ECG Analysis Resting EKG: Stress EKG: Arrhythmia: Echo Analysis Base Echo Analysis: Low Echo Anaylsis: Peak Echo Analysis: Recovery Echo: MEASUREMENTS (Male/Female) Normal Values CONCLUSIONS Mild EKG changes in response to dobutamine Normal echocardiogram in response to dobutamine with no wall motion abnormalities concerning for ischemia Dr. Figueroa Farias MD (Electronically Signed) Final Date: 30 July 2022 13:22
[2022-07-30 14:47] VITALS: BP 119/78; PULSE 86; TEMP 97.8
--- NOTE | 2022-07-30 15:34 | P.DS ---
Providers Date of admission: 07/29/22 15:57 Expected date of discharge: 07/30/22 Attending physician: Gio Cedillo MD Consults: 07/29/22 15:57 Consult Physician Urgent Consulting Provider: [facility] Consult Reason/Comments: acute chest pain Do you want consulting provider notified?: Yes Primary care physician: Palak Aguirre MD Hospital Course: Assessment: Chest pain Patient is a 51 year old woman with history of diabetes mellitus type 2, dyslipidemia, and hypertension who presented to the ER with complaints of chest pain. On arrival to the ER she was found to be tachycardic with a pulse of 107. Initial laboratory analysis was unremarkable. Troponin was negative at 0.012. EEG is reviewed by myself reveals sinus tachycardia at a rate of 101, left access deviation, with no significant ST-T wave changes. Chest x-ray demonstrated a left perihilar and lower lobe subsegmental atelectasis with hiatal hernia. Patient was admitted to observation, seen in consultation with cardiology. Troponins were negative. Patient underwent dobutamine stress echo which was negative for wall motion abnormality upon induction of stress. Patient was subsequently discharged home with instructions to follow-up with primary care physician and PCP. I spent 34 minutes corrugating this discharge on 07/30 Gen: awake, alert HEENT: normocephalic, atraumatic, good hearing acuity, moist mucous membranes Resp: good air exchange, breathing comfortably with no accessory muscle use CVS: good distal perfusion x 4, GI: soft, NTTP, ND : no SPT, no CVAT, piper catheter not present MSK: no pitting edema, no clubbing Neuro: non-focal, moving all extremities Psych: cooperative, euthymic mood Patient Condition at Discharge: Good Plan - Discharge Summary New Discharge Prescriptions: Continue Ibuprofen [Motrin Ib] 600 mg PO Q6H PRN PRN Reason: Pain Gabapentin [Neurontin] 400 mg PO TID PRN PRN Reason: NERVE PAIN Losartan [Cozaar] 50 mg PO BID hydroCHLOROthiazide 12.5 mg PO DAILY PRN PRN Reason: INCREASED EDEMA Meloxicam [Mobic] 7.5 mg PO DAILY Ferrous Sulfate [Iron (65 MG Elemental)] 325 mg PO DAILY Empagliflozin/Metformin HCl [Synjardy 12.5-1,000 mg Tablet] 1 tab PO BID hydroCHLOROthiazide [Hydrodiuril] 12.5 mg PO DAILY Omeprazole 40 mg PO DAILY HYDROcodone/APAP 10-325MG [[place] 10-325] 1 tab PO QID PRN PRN Reason: Pain Discharge Medication List Gabapentin [Neurontin] 400 mg PO TID PRN 01/24/19 [History] Ibuprofen [Motrin Ib] 600 mg PO Q6H PRN 01/24/19 [History] Losartan [Cozaar] 50 mg PO BID 01/10/20 [History] hydroCHLOROthiazide 12.5 mg PO DAILY PRN 01/10/20 [History] Empagliflozin/Metformin HCl [Synjardy 12.5-1,000 mg Tablet] 1 tab PO BID [History] Ferrous Sulfate [Iron (65 MG Elemental)] 325 mg PO DAILY 07/29/22 [History] HYDROcodone/APAP 10-325MG [[place] 10-325] 1 tab PO QID PRN 07/29/22 [History] Meloxicam [Mobic] 7.5 mg PO DAILY 07/29/22 [History] Omeprazole 40 mg PO DAILY 07/29/22 [History] hydroCHLOROthiazide [Hydrodiuril] 12.5 mg PO DAILY 07/29/22 [History] Follow up Appointment(s)/Referral(s): Palak Aguirre MD [Primary Care Provider] - 1-2 days Patient Instructions/Handouts: Chest Pain (DC) Discharge Disposition: HOME SELF-CARE
== END 2022-07-30 15:01 | disposition home or self-care (01) ==
LOC: EC 12:35 → 6NMEDSUR 15:57 → 3SCARD 07-30 11:43
PROVIDERS: ADMIT Student in an Organized Health Care Education/Training Program; ATTEND Student in an Organized Health Care Education/Training Program
DX: R07.89 Other chest pain (principal); E78.5 Hyperlipidemia, unspecified; I10 Essential (primary) hypertension; R00.0 Tachycardia, unspecified; K44.9 Diaphragmatic hernia without obstruction or gangrene; J98.11 Atelectasis; E11.40 Type 2 diabetes mellitus with diabetic neuropathy, unspecified; G25.0 Essential tremor; D64.9 Anemia, unspecified; E04.1 Nontoxic single thyroid nodule; K58.9 Irritable bowel syndrome, unspecified; K21.9 Gastro-esophageal reflux disease without esophagitis; Z85.828 Personal history of other malignant neoplasm of skin; K57.92 Diverticulitis of intestine, part unspecified, without perforation or abscess without bleeding; Z16.24 Resistance to multiple antibiotics; Z79.899 Other long term (current) drug therapy; Z79.1 Long term (current) use of non-steroidal anti-inflammatories (NSAID); Z91.040 Latex allergy status; Z91.048 Other nonmedicinal substance allergy status; Z82.49 Family history of ischemic heart disease and other diseases of the circulatory system; Z83.2 Family history of diseases of the blood and blood-forming organs and certain disorders involving the immune mechanism
CPT/HCPCS: 96374; 99285; 36415; 93005; 93306; 93351; 85379; 80061; 80053; 80048; 83735; 84484; 85025 ×2; 85610; 85730; 83036; 71046; 76705; G0378 ×3; C9113; Q9950

== ENCOUNTER → 2022-12-15 | Outpatient (CLI) | payer OTHER ==
--- NOTE | 2022-12-15 11:42 | XR ---
EXAMINATION TYPE: XR cervical spine limited DATE OF EXAM: 12/15/2022 CLINICAL HISTORY: pain TECHNIQUE: 3 views of the cervical spine are submitted. COMPARISON: None. FINDINGS: There is satisfactory in alignment without evidence of acute fracture or dislocation. The pre-vertebral soft tissue appears within normal limits.Disc spaces are well preserved. The C1-C2 art iculation is unremarkable on the open mouth view. IMPRESSION: No acute fracture or dislocation is seen in the cervical spine.
== END | disposition home or self-care (01) ==
LOC: RADXRMAIN 11:11
PROVIDERS: ATTEND Physician Assistant Medical
DX: M50.30 Other cervical disc degeneration, unspecified cervical region (principal)
CPT/HCPCS: 72040

== ENCOUNTER → 2022-12-15 | Outpatient (CLI) | payer OTHER ==
[2022-12-15 11:24] VITALS: BP 130/81; PULSE 98; RESP 16; TEMP 98.8
--- NOTE | 2022-12-15 15:17 | P.PAINPG ---
PQRS Measure Charge Sheet Comment: HISTORY OF PRESENT ILLNESS: A 52 yr old female as a referral from Dr Anne presents today w severe and chronic R neck pain secondary to DDD, spondylosis and facet arthropathy without myelopathy for evaluation. Pt states pain level is provoked at 6/10 in intensity, constant, localized in the R cervical spine, achy in character w shooting pain to the R elbow. Pain is provoked by rainy weather. Pain is alleviated by PT years ago, physician guided home stretches daily x [address] Aguirre (her PCP), medications ([place] 10/325mg #120, Mobic), topical, repositioning and rest. 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 Cervical disability score of 15. PMH: OA, DM II, GERD, HTN, Hypothyroid Disorder, IBS, Essential Tremor PSH: Tonsillectomy, EGD/ Colonoscopy SH: Former tobacco user, Rare ETOH use, No illicit drug use FH: Mo- DVT All: See list Meds: See list REVIEW OF ORGAN SYSTEMS: CONSTITUTIONAL: No fevers or chills. No recent weight loss. NEUROLOGICAL: + numbness and tingling along the distal extremities. No seizure disorders or headaches. MUSCULOSKELETAL: + pain PSYCHIATRIC: Denies current depression or suicidal thoughts. Physical Examinations : Constitutional : Cooperative , not in acute distress . Neurologic : Cranial nerve II to XII intact. No focal neurological deficits. Psychiatric : alert & oriented x 3. Matching mood & appropriate affect. Judgment & insight intact. Musculoskeletal : Cervical Spine Motor strength in the deltoid and biceps: Normal right side. Normal Left side Motor strength biceps and the wrist extensors: Normal right side . Normal left side Motor strength in the triceps muscle: Normal right side. Normal left side Deep tendon reflexes: Normal at the biceps. Normal at Brachioradialis. Normal at triceps Vertebral body tenderness to deep palpation over C6 Cervical facet loading test: positive bilaterally Spurling test: positive bilaterally Neck distraction test: positive bilaterally Lexis sign: positive bilaterally Lumbar spine Motor strength lower extremities ,thigh and legs 5/5 Right side , 5/5 Left side Deep tendon reflexes : Normal Knee Jerk. Normal Ankle Jerk Vertebral body tenderness over Hankins Test positive Lumbar facet Loading Test: positive Right / positive Left Range of motion of the lumbar spine Flexion 30 degrees, extension 10 degrees Straight Leg Raise test: Left/ Right positive at degree Kurt test: positive right / positive left. Severe tenderness over the Sacroiliac joint on the Right / Left sides Gaenslen test: positive bilaterally Seated flexion test: positive bilaterally. Sacral spine : Severe tenderness over the Sacroiliac joint: right side / left side Range of motion: Flexion of the lumbar spine <60 degrees Range of motion: Extension of the lumbar spine <20 degrees Gaenslen's Test positive Alpesh's Test positive Kurt test: positive right side / left side Thigh Thrust Test Sacral Thrust Test Imaging: None on file Assessment/ Plan : Cervical DDD Recommendation of x ray cervical spine and PT x 6 wks M50.30 May need additional imaging if indicated. [place] 10/325mg #120 w 1 RF. Use, side effects, adverse reactions and safe storage discussed. Opiate/ narcotic agreement signed 12/15/22 Pt acknowledged understanding. All questions answered. I have spent greater than 30 minutes on patient care today. Dr Zamorano was available by phone for the evaluation of this patient. The time was used to review the medical records including relevant urine studies and Prescription history (MAPs), review of the available imaging, evaluation and examination of the patient, coordination of care with the medical staff and if applicable referring physicians, as well as creation of the medical record PQRS Narrative: Smoking Status Never smoker Home Medications: Ambulatory Orders Gabapentin [Neurontin] 400 mg PO TID PRN 01/24/19 Ibuprofen [Motrin Ib] 600 mg PO Q6H PRN 01/24/19 Losartan [Cozaar] 50 mg PO BID 01/10/20 hydroCHLOROthiazide 12.5 mg PO DAILY PRN 01/10/20 Empagliflozin/Metformin HCl [Synjardy 12.5-1,000 mg Tablet] 1 tab PO BID 07/29/22 Ferrous Sulfate [Iron (65 MG Elemental)] 325 mg PO DAILY 07/29/22 Meloxicam [Mobic] 7.5 mg PO DAILY 07/29/22 Omeprazole 40 mg PO DAILY 07/29/22 hydroCHLOROthiazide [Hydrodiuril] 12.5 mg PO DAILY 07/29/22 HYDROcodone/APAP 10-325MG [[place] 10-325] 1 tab PO Q6H PRN 30 Days #120 tab 12/15/22 HYDROcodone/APAP 10-325MG [[place] 10-325] 1 tab PO QID PRN 30 Days #120 tab 12/15/22 Controlled Substance Measures - Controlled Substance Measures Is patient prescribed a controlled substance at discharge?: Yes When asked, does pt state using other controlled substances?: No If prescribed controlled substance>3 days was MAPS reviewed?: Yes If Rx opioid, was Start Talking consent form obtained?: Yes Was information provided regarding opioid addiction?: Yes
== END ==
LOC: PNWHC3 09:55
PROVIDERS: ATTEND Specialist
DX: M47.812 Spondylosis without myelopathy or radiculopathy, cervical region (principal); M50.322 Other cervical disc degeneration at C5-C6 level; M19.90 Unspecified osteoarthritis, unspecified site; E11.9 Type 2 diabetes mellitus without complications; K21.9 Gastro-esophageal reflux disease without esophagitis; I10 Essential (primary) hypertension; E07.9 Disorder of thyroid, unspecified; K58.9 Irritable bowel syndrome, unspecified; Z87.891 Personal history of nicotine dependence; Z79.899 Other long term (current) drug therapy; Z91.048 Other nonmedicinal substance allergy status; Z91.040 Latex allergy status; Z79.84 Long term (current) use of oral hypoglycemic drugs
CPT/HCPCS: 99211

== ENCOUNTER → 2023-02-09 | Outpatient (CLI) | payer OTHER ==
[2023-02-09 12:03] VITALS: BP 122/82; PULSE 84; RESP 16
--- NOTE | 2023-02-09 14:10 | P.PAINPG ---
PQRS Measure Charge Sheet Comment: HISTORY OF PRESENT ILLNESS: A 52 yr old female presents today w severe and chronic R neck pain secondary to DDD, spondylosis and facet arthropathy without myelopathy for medication refills and x ray results. Pt states pain level is provoked at 5/10 in intensity, constant, localized in the R cervical spine, achy in character w shooting pain to the R elbow. Pain is provoked by rainy weather. Pain is alleviated by PT years ago, physician guided home stretches daily x [address] Aguirre (her PCP), medications, topical, repositioning and rest. 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 Cervical disability score of 15. Interventional procedures include DENIES Medications include [place] 10/325mg #120, Mobic REVIEW OF ORGAN SYSTEMS: CONSTITUTIONAL: No fevers or chills. No recent weight loss. NEUROLOGICAL: + numbness and tingling along the distal extremities. No seizure disorders or headaches. MUSCULOSKELETAL: + pain PSYCHIATRIC: Denies current depression or suicidal thoug hts. Physical Examinations : Constitutional : Cooperative , not in acute distress . Neurologic : Cranial nerve II to XII intact. No focal neurological deficits. Psychiatric : alert & oriented x 3. Matching mood & appropriate affect. Judgment & insight intact. Musculoskeletal : Cervical Spine Motor strength in the deltoid and biceps: Normal right side. Normal Left side Motor strength biceps and the wrist extensors: Normal right side . Normal left side Motor strength in the triceps muscle: Normal right side. Normal left side Deep tendon reflexes: Normal at the biceps. Normal at Brachioradialis. Normal at triceps Vertebral body tenderness to deep palpation over C6 Cervical facet loading test: positive bilaterally Spurling test: positive bilaterally Neck distraction test: positive bilaterally Lexis sign: positive bilaterally Lumbar spine Motor strength lower extremities ,thigh and legs 5/5 Right side , 5/5 Left side Deep tendon reflexes : Normal Knee Jerk. Normal Ankle Jerk Vertebral body tenderness over Hankins Test positive Lumbar facet Loading Test: positive Right / positive Left Range of motion of the lumbar spine Flexion 30 degrees, extension 10 degrees Straight Leg Raise test: Left/ Right positive at degree Kurt test: positive right / positive left. Severe tenderness over the Sacroiliac joint on the Right / Left sides Gaenslen test: positive bilaterally Seated flexion test: positive bilaterally. Sacral spine : Severe tenderness over the Sacroiliac joint: right side / left side Range of motion: Flexion of the lumbar spine <60 degrees Range of motion: Extension of the lumbar spine <20 degrees Gaenslen's Test positive Alpesh's Test positive Kurt test: positive right side / left side Thigh Thrust Test Sacral Thrust Test Imaging: None on file Assessment/ Plan : Cervical DDD Recommendation of MRI cervical spine, PT x 6 wks M50.30. Pt could not go to [facility] as they were not a participating facility w her insurance. She will start at a [facility] PT facility in [place] this weekl [place] 10/325mg #120 w 1 RF. Use, side effects, adverse reactions and safe storage discussed. Opiate/ narcotic agreement signed 12/15/22. UDS collected 02/09/23. Pt acknowledged understanding. All questions answered. I have spent greater than 30 minutes on patient care today. Dr Zamorano was available by phone for the evaluation of this patient. The time was used to review the medical records including relevant urine studies and Prescription history (MAPs), review of the available imaging, evaluation and examination of the patient, coordination of care with the medical staff and if applicable referring physicians, as well as creation of the medical record PQRS Narrative: Smoking Status Never smoker Hx Alcohol Use (MH) No Home Medications: Ambulatory Orders Gabapentin [Neurontin] 400 mg PO TID PRN 01/24/19 Ibuprofen [Motrin Ib] 600 mg PO Q6H PRN 01/24/19 Losartan [Cozaar] 50 mg PO BID 01/10/20 hydroCHLOROthiazide 12.5 mg PO DAILY PRN 01/10/20 Empagliflozin/Metformin HCl [Synjardy 12.5-1,000 mg Tablet] 1 tab PO BID 07/29/22 Ferrous Sulfate [Iron (65 MG Elemental)] 325 mg PO DAILY 07/29/22 Meloxicam [Mobic] 7.5 mg PO DAILY 07/29/22 Omeprazole 40 mg PO DAILY 07/29/22 hydroCHLOROthiazide [Hydrodiuril] 12.5 mg PO DAILY 07/29/22 HYDROcodone/APAP 10-325MG [[place] 10-325] 1 tab PO Q6H PRN 30 Days #120 tab 12/15/22 HYDROcodone/APAP 10-325MG [[place] 10-325] 1 tab PO QID PRN 30 Days #120 tab 10/25/23 Controlled Substance Measures - Controlled Substance Measures Is patient prescribed a controlled substance at discharge?: Yes When asked, does pt state using other controlled substances?: No If prescribed controlled substance>3 days was MAPS reviewed?: Yes
== END ==
LOC: PNWHC3 11:20
PROVIDERS: ATTEND Specialist
DX: M50.30 Other cervical disc degeneration, unspecified cervical region (principal); M47.812 Spondylosis without myelopathy or radiculopathy, cervical region; E11.9 Type 2 diabetes mellitus without complications; Z91.048 Other nonmedicinal substance allergy status; Z91.040 Latex allergy status; Z79.84 Long term (current) use of oral hypoglycemic drugs
CPT/HCPCS: 99211

== ENCOUNTER → 2023-05-04 | Outpatient (CLI) | payer OTHER ==
[2023-05-04 13:59] VITALS: BP 124/69; PULSE 85; RESP 15; TEMP 98.6
--- NOTE | 2023-05-04 14:35 | P.PAINPG ---
Objective - Vital Signs Vital signs: Intake & Output 05/03/23 05/04/23 05/04/23 18:59 06:59 18:59 Weight 76.204 kg PQRS Measure Charge Sheet Comment: HISTORY OF PRESENT ILLNESS: A 52 yr old female presents today w severe and chronic R neck pain secondary to DDD, spondylosis and facet arthropathy without myelopathy for medication refills. Pt states pain level is provoked at 5/10 in intensity, constant, localized in the R cervical spine, achy in character w shooting pain to the R elbow. Pain is provoked by rainy weather. Pain is alleviated by PT years ago, physician guided home stretches daily x [address] Aguirre (her PCP), medications, topical, repositioning and rest. 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 Cervical disability score of 15. Interventional procedures include DENIES Medications include [place] 10/325mg #120, Mobic REVIEW OF ORGAN SYSTEMS: CONSTITUTIONAL: No fevers or chills. No recent weight loss. NEUROLOGICAL: + numbness and tingling along the distal extremities. No seizure disorders or headaches. MUSCULOSKELETAL: + pain PSYCHIATRIC: Denies current depression or suicidal thoughts. Physical Examinations : Constitutional : Cooperative , not in acute distress . Neurologic : Cranial nerve II to XII intact. No focal neurological deficits. Psychiatric : alert & oriented x 3. Matching mood & appropriate affect. Judgment & insight intact. Musculoskeletal : Cervical Spine Motor strength in the deltoid and biceps: Normal right side. Normal Left side Motor strength biceps and the wrist extensors: Normal right side . Normal left side Motor strength in the triceps muscle: Normal right side. Normal left side Deep tendon reflexes: Normal at the biceps. Normal at Brachioradialis. Normal at triceps Vertebral body tenderness to deep palpation over C6 Cervical facet loading test: positive bilaterally Spurling test: positive bilaterally Neck distraction test: positive bilaterally Lexis sign: positive bilaterally Lumbar spine Motor strength lower extremities ,thigh and legs 5/5 Right side , 5/5 Left side Deep tendon reflexes : Normal Knee Jerk. Normal Ankle Jerk Vertebral body tenderness over Hankins Test positive Lumbar facet Loading Test: positive Right / positive Left Range of motion of the lumbar spine Flexion 30 degrees, extension 10 degrees Straight Leg Raise test: Left/ Right positive at degree Kurt test: positive right / positive left. Severe tenderness over the Sacroiliac joint on the Right / Left sides Gaenslen test: positive bilaterally Seated flexion test: positive bilaterally. Sacral spine : Severe tenderness over the Sacroiliac joint: right side / left side Range of motion: Flexion of the lumbar spine <60 degrees Range of motion: Extension of the lumbar spine <20 degrees Gaenslen's Test positive Alpesh's Test positive Kurt test: positive right side / left side Thigh Thrust Test Sacral Thrust Test Imaging: None on file Assessment/ Plan : Cervical DDD Recommendation of MRI cervical spine, PT x 6 wks M50.30. Contact information for PT at [facility] provided. Pt could not go to [facility] as they were not a participating facility w her insurance. [place] 10/325mg #120 w 1 RF. Use, side effects, adverse reactions and safe storage discussed. Opiate/ narcotic agreement signed 12/15/22. UDS not collected 02/09/23 so will collect 05/04/23. Pt acknowledged understanding. All questions answered. I have spent greater than 30 minutes on patient care today. Dr Zamorano was available by phone for the evaluation of this patient. The time was used to review the medical records including relevant urine studies and Prescription history (MAPs), review of the available imaging, evaluation and examination of the patient, coordination of care with the medical staff and if applicable referring physicians, as well as creation of the medical record PQRS Narrative: Smoking Status Never smoker Hx Alcohol Use (MH) No Home Medications: Ambulatory Orders Gabapentin [Neurontin] 400 mg PO TID PRN 01/24/19 Ibuprofen [Motrin Ib] 600 mg PO Q6H PRN 01/24/19 Losartan [Cozaar] 50 mg PO BID 01/10/20 hydroCHLOROthiazide 12.5 mg PO DAILY PRN 01/10/20 Empagliflozin/Metformin HCl [Synjardy 12.5-1,000 mg Tablet] 1 tab PO BID 07/29/22 Ferrous Sulfate [Iron (65 MG Elemental)] 325 mg PO DAILY 07/29/22 Meloxicam [Mobic] 7.5 mg PO DAILY 07/29/22 Omeprazole 40 mg PO DAILY 07/29/22 hydroCHLOROthiazide [Hydrodiuril] 12.5 mg PO DAILY 07/29/22 HYDROcodone/APAP 10-325MG [[place] 10-325] 1 tab PO Q6H PRN 30 Days #120 tab 05/04/23 HYDROcodone/APAP 10-325MG [[place] 10-325] 1 tab PO QID PRN 30 Days #120 tab 05/04/23 Controlled Substance Measures - Controlled Substance Measures Is patient prescribed a controlled substance at discharge?: Yes When asked, does pt state using other controlled substances?: No If prescribed controlled substance>3 days was MAPS reviewed?: Yes
== END ==
LOC: PNWHC3 12:50
PROVIDERS: ATTEND Specialist
DX: M50.322 Other cervical disc degeneration at C5-C6 level (principal); Z91.048 Other nonmedicinal substance allergy status; Z91.040 Latex allergy status
CPT/HCPCS: 80307; 99212

== ENCOUNTER → 2023-07-13 | Outpatient (CLI) | payer OTHER ==
[2023-07-13 11:38] VITALS: BP 152/112; PULSE 104; RESP 15; TEMP 98.2
--- NOTE | 2023-07-13 13:14 | P.PAINPG ---
PQRS Measure Charge Sheet Comment: HISTORY OF PRESENT ILLNESS: A 52 yr old female presents today w severe and chronic R neck pain secondary to DDD, spondylosis and facet arthropathy without myelopathy for medication refills. Still has not completed MRI cervical spine yet. Pt states pain level is provoked at 6 /10 in intensity, constant, localized in the R cervical spine, achy in character w shooting pain to the R elbow. Pain is provoked by rainy weather. Pain is alleviated by PT years ago, physician guided home stretches daily since Mar [address] Aguirre (her PCP), medications, topical, repositioning and rest. 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 Cervical disability score of 15. Pt stated she was referred here for "pain" and that her neck is "the least of her worries." I stated to pt that it was her whom stated her neck is the most bothersome, hence the treatment plan of medications, PT, x ray, additional imaging and interventional pain management. Pt again stated that's not true and if she lead us on, she must have been "distracted." She states that her PT facility called the clinic requesting to add BL shoulders, lumbar and BL hip areas and that I did not do my job in calling them back. Called PT facility and spoke to center receptionist and PT Guerline whom both stated they do not add areas, nor request from the provider to add areas, that they leave that to the clinician. When discussing this w the pt, she stated "well someone there told me that." Pt had not had timely drug screen in Jan 2023 because she states "no one told me to." I will reduce her to [place] 7.5/325mg #120 and add Robaxin 500mg #60 prn for broad spectrum treatment for potentiating effects of pain medication for generalized pain management. I will also re order MRI cervical spine if pt still feels it is necessary after medication management. Interventional procedures include DENIES Medications include [place] 10/325mg #120, Mobic REVIEW OF ORGAN SYSTEMS: CONSTITUTIONAL: No fevers or chills. No recent weight loss. NEUROLOGICAL: + numbness and tingling along the distal extremities. No seizure disorders or headaches. MUSCULOSKELETAL: + pain PSYCHIATRIC: Denies current depression or suicidal thoughts. Physical Examinations : Constitutional : Cooperative , not in acute distress . Neurologic : Cranial nerve II to XII intact. No focal neurological deficits. Psychiatric : alert & oriented x 3. Matching mood & appropriate affect. Judgment & insight intact. Musculoskeletal : Cervical Spine Motor strength in the deltoid and biceps: Normal right side. Normal Left side Motor strength biceps and the wrist extensors: Normal right side . Normal left side Motor strength in the triceps muscle: Normal right side. Normal left side Deep tendon reflexes: Normal at the biceps. Normal at Brachioradialis. Normal at triceps Vertebral body tenderness to deep palpation over C6 Cervical facet loading test: positive bilaterally Spurling test: positive bilaterally Neck distraction test: positive bilaterally Lexis sign: positive bilaterally Lumbar spine Motor strength lower extremities ,thigh and legs 5/5 Right side , 5/5 Left side Deep tendon reflexes : Normal Knee Jerk. Normal Ankle Jerk Vertebral body tenderness over Hankins Test positive Lumbar facet Loading Test: positive Right / positive Left Range of motion of the lumbar spine Flexion 30 degrees, extension 10 degrees Straight Leg Raise test: Left/ Right positive at degree Kurt test: positive right / positive left. Severe tenderness over the Sacroiliac joint on the Right / Left sides Gaenslen test: positive bilaterally Seated flexion test: positive bilaterally. Sacral spine : Severe tenderness over the Sacroiliac joint: right side / left side Range of motion: Flexion of the lumbar spine <60 degrees Range of motion: Extension of the lumbar spine <20 degrees Gaenslen's Test positive Alpesh's Test positive Kurt test: positive right side / left side Thigh Thrust Test Sacral Thrust Test Imaging: None on file Assessment/ Plan : Cervical DDD Recommendation of MRI cervical spine, continue PT M50.30. Contact information for PT at [facility] provided. Previously pt could not go to [facility] as they were not a participating facility w her insurance. Trial of [place] 7.5/325mg #120, Robaxin 500mg #60 w 1 RF. New narcotic agreement signed 07/13/23. Use, side effects, adverse reactions and safe storage discussed. Opiate/ narcotic agreement signed 12/15/22. UDS was not collected Jan 2023 but 05/04/23 reviewed and consistent. Pt acknowledged understanding. All questions answered. I have spent greater than 30 minutes on patient care today. Dr Zamorano was available by phone for the evaluation of this patient. The time was used to review the medical records including relevant urine studies and Prescription history (MAPs), review of the available imaging, evaluation and examination of the patient, coordination of care with the medical staff and if applicable referring physicians, as well as creation of the medical record - Pain Location Bilateral Neck Non-Pharmacological Interventions: Inactivity, Position/Reposition Pharmacological Interventions: Scheduled Medication PQRS Narrative: Smoking Status Never smoker Hx Alcohol Use (MH) No Home Medications: Ambulatory Orders Gabapentin [Neurontin] 400 mg PO TID PRN 01/24/19 Ibuprofen [Motrin Ib] 600 mg PO Q6H PRN 01/24/19 Losartan [Cozaar] 50 mg PO BID 01/10/20 hydroCHLOROthiazide 12.5 mg PO DAILY PRN 01/10/20 Empagliflozin/Metformin HCl [Synjardy 12.5-1,000 mg Tablet] 1 tab PO BID 07/29/22 Ferrous Sulfate [Iron (65 MG Elemental)] 325 mg PO DAILY 07/29/22 Meloxicam [Mobic] 7.5 mg PO DAILY 07/29/22 Omeprazole 40 mg PO DAILY 07/29/22 hydroCHLOROthiazide [Hydrodiuril] 12.5 mg PO DAILY 07/29/22 HYDROcodone/APAP 7.5-325MG [[place] 7.5-325] 1 tab PO Q6HR PRN 30 Days #120 tab 07/13/23 HYDROcodone/APAP 7.5-325MG [[place] 7.5-325] 1 tab PO QID PRN 30 Days #120 tab 07/13/23 methocarbamoL [Robaxin] 500 mg PO BID PRN 30 Days #60 tab 07/13/23 Controlled Substance Measures - Controlled Substance Measures Is patient prescribed a controlled substance at discharge?: Yes When asked, does pt state using other controlled substances?: Yes If prescribed controlled substance>3 days was MAPS reviewed?: Yes
== END ==
LOC: PNWHC3 10:22
PROVIDERS: ATTEND Specialist
DX: M50.322 Other cervical disc degeneration at C5-C6 level (principal); M47.812 Spondylosis without myelopathy or radiculopathy, cervical region; Z91.048 Other nonmedicinal substance allergy status; Z91.040 Latex allergy status
CPT/HCPCS: 99211

== ENCOUNTER 2023-10-03 13:33 | Emergency (ER) | payer OTHER ==
[2023-10-03] MEDS ORDERED: IBUPROFEN 800 MG TAB ONE (14:08)
[2023-10-03] MEDS ORDERED: LIDOCAINE 4% PATCH TOPICAL ONE (14:08)
--- NOTE | 2023-11-03 10:12 | CT ---
Patient Pallavi Sterling ID [id number] Order # EXAMINATION TYPE: CT lumbar spine wo con DATE OF EXAM: 10/03/2023 COMPARISON: No comparison available during PACS downtime. HISTORY: Low back pain left hip pain CT DLP: 873.5 mGycm CONTRAST: None TECHNIQUE: CT of the lumbar spine is performed on a spiral scan at 3 mm thick sections. Reconstructed images are performed in the coronal and sagittal planes. FINDINGS: Loss of disc height and vacuum disc phenomenon is noted at L4-5 and L5-S1 there is also los s of disc height T12-L1 with some endplate sclerosis. Alignment appears preserved. Vertebral body hei ghts are preserved. Minimal spondylosis anterior inferior L3. T12-L1: No focal disc herniation or significant disc bulge is evident. No spinal canal stenosis or neural foraminal stenosis is present. L1-L2: No focal disc herniation or significant disc bulge is evident. No spinal canal stenosis or n eural foraminal stenosis is present L2-L3: Minimal disc bulge is present L2-3 with mild anterior thecal sac compression. No AP spinal can al stenosis. Neural foramen are patent. L3-L4: Broad-based disc bulge is moderate anterior thecal sac flattening. No AP spinal canal stenosis is present. Mild ligamentum flavum laxity is present. Moderate bilateral neural foraminal narrowing is present. L4-L5: Residual disc bulge has mild to moderate anterior thecal sac compression. Some ligamentum flav um laxity may be present on the right. Mild spinal canal narrowing may be present. There is severe le ft and right foraminal stenosis. L5-S1: Broad-based residual disc bulge is present. Some ligamentum flavum laxity is present contribut ing to spinal canal narrowing. Severe left and right foraminal narrowing present. IMPRESSION: 1. No acute osseous abnormality lumbar spine. 2. Degenerative disc changes T12-L1, L4-5, L5-S1. 3. Disc bulging and ligamentum flavum laxity greatest at L4-5 may have some mild spinal canal narrowi ng. Slightly less spinal canal narrowing from similar features is present L5-S1. 4. Severe foraminal stenosis present bilaterally at L4-5 and on the left at L5-S1. Correlate with rad icular symptoms.
--- NOTE | 2023-11-03 10:13 | CT ---
Patient Pallavi Sterling ID [id number] Order # EXAMINATION TYPE: CT pelvis wo con DATE OF EXAM: 10/03/2023 COMPARISON: None HISTORY: Hip pain following fall CT DLP: 391.1 mGycm Automated exposure control for dose reduction was used. Contrast: None Technique: Axial images 3 mm thick sections. Reconstructed images in the coronal and sagittal planes. Study is without contrast. FINDINGS: Lower abdomen within the [id number] is essentially unremarkable. Note is made of a nonobstructing renal stone inferior pole left kidney. Scattered diverticuli are within the lower descending colon and throughout the sigmoid colon. Some mi ld fecal retention is through the redundant sigmoid colon. Urinary bladder appears unremarkable. Uter us is normal. Adnexa are normal. The appendix as visualized may be normal. Attention was pain to the left hip. No acute fractures evident. Femoral head articulates with the robert tabulum. Additional osseous structures are without acute fractures. Degenerative disc changes within the lower lumbar spine IMPRESSION: 1. NO ACUTE OSSEOUS ABNORMALITY LEFT HIP. FOLLOW UP CAN BE PERFORMED CLINICALLY INDICATED. 2. DIVERTICULOSIS WITHOUT ACUTE DIVERTICULITIS.
== END 2023-10-03 18:06 | disposition home or self-care (01) ==
LOC: EC 13:33
CPT/HCPCS: 72131; 72192; 99283

== ENCOUNTER 2023-11-23 22:23 | Emergency (ER) | payer OTHER ==
--- NOTE | 2023-11-23 23:35 | ED ---
General Adult HPI - General Chief complaint: Recheck/Abnormal Lab/Rx Stated complaint: Pain Time Seen by Provider: 11/23/23 23:09 Source: patient Limitations: no limitations - History of Present Illness Initial comments: 52-year-old female requesting medication refill. Patient has history of arthritis and neuropathy. She currently takes Fosters 10 up to 4 times daily as needed for the pain. She states that her pain management doctor retired and she is in between doctors right now states that she had a good experience at our pain clinic and does not want to return. She has no other complaints today - Related Data Home Medications Medication Instructions Recorded Confirmed Gabapentin [Neurontin] 400 mg PO TID PRN 01/24/19 02/09/23 Ibuprofen [Motrin Ib] 600 mg PO Q6H PRN 01/24/19 02/09/23 Losartan [Cozaar] 50 mg PO BID 01/10/20 02/09/23 hydroCHLOROthiazide 12.5 mg PO DAILY PRN 01/10/20 02/09/23 Empagliflozin/Metformin HCl 1 tab PO BID 07/29/22 02/09/23 [Synjardy 12.5-1,000 mg Tablet] Ferrous Sulfate [Iron (65 MG 325 mg PO DAILY 07/29/22 02/09/23 Elemental)] Meloxicam [Mobic] 7.5 mg PO DAILY 07/29/22 02/09/23 Omeprazole 40 mg PO DAILY 07/29/22 02/09/23 hydroCHLOROthiazide [Hydrodiuril] 12.5 mg PO DAILY 07/29/22 02/09/23 Previous Rx's Medication Instructions Recorded HYDROcodone/APAP 7.5-325MG [Fosters 1 tab PO Q6HR PRN 30 Days #120 tab 07/13/23 7.5-325] HYDROcodone/APAP 7.5-325MG [Fosters 1 tab PO QID PRN 30 Days #120 tab 07/13/23 7.5-325] methocarbamoL [Robaxin] 500 mg PO BID PRN 30 Days #60 tab 07/13/23 HYDROcodone/APAP 10-325MG [Fosters 1 tab PO Q6HR PRN 3 Days #12 tab 11/23/23 10-325] Allergies Allergy/AdvReac Type Severity Reaction Status Date / Time adhesive tape AdvReac Rash/Hives Verified 11/23/23 22:42 Latex, Natural Rubber AdvReac Rash/Hives Verified 11/23/23 22:42 Review of Systems ROS Statement: Those systems with pertinent positive or pertinent negative responses have been documented in the HPI. ROS Other: All systems not noted in ROS Statement are negative. Past Medical History Past Medical History: Cancer, Diabetes Mellitus, GERD/Reflux, Hypertension, Osteoarthritis (OA), Thyroid Disorder Additional Past Medical History / Comment(s): hx. skin cancer, neuropathy hands and feet, essential tremors, IBS, hx of diverticulitis, anemia, thyroid nodule History of Any Multi-Drug Resistant Organisms: None Reported, MRSA Date of last positivie culture/infection: 2013 MDRO Source:: back Past Surgical History: Tonsillectomy Additional Past Surgical History / Comment(s): EGD, colonoscopy, abscess on back removed Past Anesthesia/Blood Transfusion Reactions: Family History of Problems w/ Anesthesia Additional Past Anesthesia/Blood Transfusion Reaction / Comment(s): grandparent after surgery-?related to anesthesia Past Psychological History: No Psychological Hx Reported Smoking Status: Former smoker Past Alcohol Use History: Rare Past Drug Use History: None Reported - Past Family History Mother Family Medical History: Deep Vein Thrombosis (DVT) General Exam Limitations: no limitations General appearance: alert, in no apparent distress Head exam: Present: atraumatic, normocephalic, normal inspection Eye exam: Present: normal appearance, EOMI Neck exam: Present: normal inspection. Absent: meningismus Respiratory exam: Absent: respiratory distress Cardiovascular Exam: Present: regular rate Neurological exam: Present: alert, oriented X3 Psychiatric exam: Present: normal affect, normal mood Skin exam: Present: warm, dry Course Vital Signs 11/24/23 00:24 Pulse Rate 96 Respiratory 18 Rate Blood Pressure 128/82 O2 Sat by Pulse 96 Oximetry Medical Decision Making - Medical Decision Making Was pt. sent in by a medical professional or institution (, PA, RESIDENT PHYSICIAN, urgent care, hospital, or intermediate...) When possible be specific @ -No Did you speak to anyone other than the patient for history (EMS, parent, family, police, friend...)? What history was obtained from this source @ -No Did you review nursing and triage notes (agree or disagree)? Why? @ -I reviewed and agree with nursing and triage notes Were old charts reviewed (outside hosp., previous admission, EMS record, old EKG, old radiological studies, urgent care reports/EKG's, intermediate records)? Report findings @ -No old charts were reviewed Differential Diagnosis (chest pain, altered mental status, abdominal pain women, abdominal pain men, vaginal bleeding, weakness, fever, dyspnea, syncope, headache, dizziness, GI bleed, back pain, seizure, CVA, palpatations, mental health, musculoskeletal)? @ -Not applicable EKG interpreted by me (3pts min.). @ -As above X-rays interpreted by me (1pt min.). @ -None done CT interpreted by me (1pt min.). @ -None done U/S interpreted by me (1pt. min.). @ -None done What testing was considered but not performed or refused? (CT, X-rays, U/S, labs)? Why? @ -None What meds were considered but not given or refused? Why? @ -None Did you discuss the management of the patient with other professionals (professionals i.e. , PA, RESIDENT PHYSICIAN, lab, RT, psych nurse, social media sr strategy manager, material requirements worker, teacher, staff mine warfare officer, disability case manager)? Give summary @ -No Was smoking cessation discussed for >3mins.? @ -No Was critical care preformed (if so, how long)? @ -No Were there social determinants of health that impacted care today? How? (Homelessness, low income, unemployed, alcoholism, drug addiction, transportati on, low edu. Level, literacy, decrease access to med. care, penitentiary, rehab)? @ -No Was there de-escalation of care discussed even if they declined (Discuss DNR or withdrawal of care, Hospice)? DNR status @ -No What co-morbidities impacted this encounter? (DM, HTN, Smoking, COPD, CAD, Cancer, CVA, ARF, Chemo, Hep., AIDS, mental health diagnosis, sleep apnea, morbid obesity)? @ -None Was patient admitted / discharged? Hospital course, mention meds given and route, prescriptions, significant lab abnormalities, going to OR and other pertinent info. @ -52-year-old female requesting pain medication refill. She states that her previous pain management doctor required and she is try to find a new one. She has no other complaints today. She is on a 3-day refill of her Fosters 10. Discharged home. My attending is Dr. Hamilton. Undiagnosed new problem with uncertain prognosis? @ -No Drug Therapy requiring intensive monitoring for toxicity (Heparin, Nitro, Insulin, Cardizem)? @ -No Were any procedures done? @ -No Diagnosis/symptom? @ -Medication refill Acute, or Chronic, or Acute on Chronic? @ -Acute Uncomplicated (without systemic symptoms) or Complicated (systemic symptoms)? @ -Uncomplicated Side effects of treatment? @ -No Exacerbation, Progression, or Severe Exacerbation? @ -No Poses a threat to life or bodily function? How? (Chest pain, [place], [place], pneumonia, PE, COPD, DKA, ARF, appy, cholecystitis, CVA, Diverticulitis, Homicidal, Suicidal, threat to staff... and all critical care pts) @ -No Disposition Clinical Impression: Chronic pain, Encounter for medication refill Disposition: HOME SELF-CARE Condition: Good Prescriptions: HYDROcodone/APAP 10-325MG [Fosters 10-325] 1 tab PO Q6HR PRN 3 Days #12 tab PRN Reason: Pain Is patient prescribed a controlled substance at d/c from ED?: Yes When asked, does pt state using other controlled substances?: No If prescribed controlled substance>3 days was MAPS reviewed?: Prescribed <3 Days If opioid is for acute pain is fill amount 7 days or less?: Yes Referrals: Palak Aguirre MD [Primary Care Provider] - 1-2 days Time of Disposition: 23:35
[2023-11-24 00:26] VITALS: BP 128/82; PULSE 96; RESP 18
== END 2023-11-24 00:26 | disposition home or self-care (01) ==
LOC: EC 22:23
CPT/HCPCS: 99283

== ENCOUNTER 2023-12-05 21:58 | Emergency (ER) | payer OTHER ==
[2023-12-05 22:03] VITALS: TEMP 98.4
--- NOTE | 2023-12-05 22:59 | ED ---
Back Pain HPI - General Chief Complaint: Back Pain/Injury Stated Complaint: Hip/Feet Pain Time Seen by Provider: 12/05/23 22:43 Source: patient, RN notes reviewed Mode of arrival: ambulatory Limitations: no limitations - History of Present Illness Initial Comments: This is a 52-year-old female who presents to the emergency department for chronic pain. Patient reports problems with arthritis leading to chronic pain in her back as well as problems with peripheral neuropathy causing pain in her hands and feet. States that her primary care provider switched offices and that she is waiting for her to accept her insurance so she can become reestablished with her for pain medication. She is also waiting to find a new pain medicine provider as hers retired. She used to be on [place] 10 mg. She is requesting a 3-day refill as well as a dose of medication before she goes home to get her through the night. Denies any new injuries. Denies any loss of bowel/bladder control or saddle anesthesia. MD Complaint: back pain - Related Data Home Medications Medication Instructions Recorded Confirmed Gabapentin [Neurontin] 400 mg PO TID PRN 01/24/19 02/09/23 Ibuprofen [Motrin Ib] 600 mg PO Q6H PRN 01/24/19 02/09/23 Losartan [Cozaar] 50 mg PO BID 01/10/20 02/09/23 hydroCHLOROthiazide 12.5 mg PO DAILY PRN 01/10/20 02/09/23 Empagliflozin/Metformin HCl 1 tab PO BID 07/29/22 02/09/23 [Synjardy 12.5-1,000 mg Tablet] Ferrous Sulfate [Iron (65 MG 325 mg PO DAILY 07/29/22 02/09/23 Elemental)] Meloxicam [Mobic] 7.5 mg PO DAILY 07/29/22 02/09/23 Omeprazole 40 mg PO DAILY 07/29/22 02/09/23 hydroCHLOROthiazide [Hydrodiuril] 12.5 mg PO DAILY 07/29/22 02/09/23 Previous Rx's Medication Instructions Recorded HYDROcodone/APAP 7.5-325MG [[place] 1 tab PO Q6HR PRN 30 Days #120 tab 07/13/23 7.5-325] HYDROcodone/APAP 7.5-325MG [[place] 1 tab PO QID PRN 30 Days #120 tab 07/13/23 7.5-325] methocarbamoL [Robaxin] 500 mg PO BID PRN 30 Days #60 tab 07/13/23 HYDROcodone/APAP 10-325MG [[place] 1 tab PO Q6HR PRN 3 Days #12 tab 11/23/23 10-325] HYDROcodone/APAP 10-325MG [[place] 1 tab PO Q6HR PRN 3 Days #12 tab 12/05/23 10-325] Allergies Allergy/AdvReac Type Severity Reaction Status Date / Time adhesive tape AdvReac Rash/Hives Verified 12/05/23 22:03 Latex, Natural Rubber AdvReac Rash/Hives Verified 12/05/23 22:03 Review of Systems ROS Statement: Those systems with pertinent positive or pertinent negative responses have been documented in the HPI. ROS Other: All systems not noted in ROS Statement are negative. Past Medical History Past Medical History: Cancer, Diabetes Mellitus, GERD/Reflux, Hypertension, Osteoarthritis (OA), Thyroid Disorder Additional Past Medical History / Comment(s): hx. skin cancer, neuropathy hands and feet, essential tremors, IBS, hx of diverticulitis, anemia, thyroid nodule History of Any Multi-Drug Resistant Organisms: None Reported, MRSA Date of last positivie culture/infection: 2013 MDRO Source:: back Past Surgical History: Tonsillectomy Additional Past Surgical History / Comment(s): EGD, colonoscopy, abscess on back removed Past Anesthesia/Blood Transfusion Reactions: Family History of Problems w/ Anesthesia Additional Past Anesthesia/Blood Transfusion Reaction / Comment(s): grandparent after surgery-?related to anesthesia Past Psychological History: No Psychological Hx Reported Smoking Status: Former smoker Past Alcohol Use History: Rare Past Drug Use History: None Reported - Past Family History Mother Family Medical History: Deep Vein Thrombosis (DVT) General Exam Limitations: no limitations General appearance: alert, in no apparent distress Head exam: Present: atraumatic, normocephalic, normal inspection Respiratory exam: Present: normal lung sounds bilaterally. Absent: respiratory distress, wheezes, rales, rhonchi, stridor Cardiovascular Exam: Present: regular rate, normal rhythm, normal heart sounds. Absent: systolic murmur, diastolic murmur, rubs, gallop, clicks Neurological exam: Present: alert, oriented X3, CN II-XII intact Psychiatric exam: Present: normal affect, normal mood Skin exam: Present: warm, dry, intact, normal color. Absent: rash Course Vital Signs 12/05/23 12/05/23 22:02 23:12 Temperature 98.4 F Pulse Rate 101 H 86 Respiratory 20 16 Rate Blood Pressure 119/79 118/82 O2 Sat by Pulse 99 99 Oximetry Medical Decision Making - Medical Decision Making This is a 52 year old female who presents to the emergency department for chronic pain. Was pt. sent in by a medical professional or institution? @ -No Did you speak to anyone other than the patient for history? @ -No Did you review nursing and triage notes? @ -Yes, and I agree, it is accurate with regards to the patient's symptoms. Were old charts reviewed? @ -No Differential Diagnosis? @ -Differential Back Pain: Strain, zoster, cauda equina syndrome, epidural abscess, vertebral osteomyelitis, discitis, fracture, subluxation, disc herniation, DJD, spinal stenosis, dissection, AAA, pancreatitis, peptic ulcer disease, pyelonephritis, kidney stone, this is not meant to be an all-inclusive list. EKG interpreted by me (3pts min.)? @ -Not obtained X-rays interpreted by me (1pt min.)? @ -Not obtained CT interpreted by me (1pt min.)? @ -Not obtained U/S interpreted by me (1pt. min.)? @ -Not obtained What testing was considered but not performed? (CT, X-rays, U/S, labs)? Why? @ -None What meds were considered but not given? Why? @ -None Did you discuss the management of the patient with other professionals? @ -No Did you reconcile home meds? @ -No Was smoking cessation discussed for >3mins.? @ -No Was critical care preformed (if so, how long)? @ -No Were there social determinants of health that impacted care today? How? (Homelessness, low income, unemployed, alcoholism, drug addiction, transportation, low edu. Level, literacy, decrease access to med. care, intermediate, rehab)? @ -No Was there de-escalation of care discussed even if they declined? (Discuss DNR or withdrawal of care, Hospice)? @ -No What co-morbidities impacted this encounter? (DM, HTN, Smoking, COPD, CAD, Cancer, CVA, Hep., AIDS, mental health diagnosis, sleep apnea, morbid obesity)? @ -DM, osteoarthritis Was patient admitted / discharged? @ -Discharged. Patient has no new injuries and is requesting help with managing her chronic pain due to problems with her insurance and being in between providers. She had no red flag signs or symptoms such as loss of bowel/bladder control or saddle anesthesia. Pain was treated in the emergency department. 3-day refill on Hos[place] provided. Patient advised to try to take this sparingly to make it last longer than the 3 days. She does have Mobic and muscle relaxants she is also taking at home. Patient discharged home in stable condition. Case discussed with ED attending Dr. Miller. Return precautions reviewed in depth, the patient is instructed to return to the emergency department with any new, worsening, or concerning symptoms. Patient verbalized understanding. Undiagnosed new problem with uncertain prognosis? @ -None Drug Therapy requiring intensive monitoring for toxicity (Heparin, Nitro, Insulin, Cardizem)? @ -None Were any procedures done? @ -None Diagnosis/symptom? @ -Chronic back pain, peripheral neuropathy Acute, or Chronic, or Acute on Chronic? @ -Chronic Uncomplicated (without systemic symptoms) or Complicated (systemic symptoms)? @ -Uncomplicated Side effects of treatment? @ -None Exacerbation, Progression, or Severe Exacerbation] @ -Exacerbation Poses a threat to life or bodily function? @ -The pain limits her ability to function Disposition Clinical Impression: Chronic back pain, Neuropathy Disposition: HOME SELF-CARE Condition: Stable Instructions (If sedation given, give patient instructions): Chronic Back Pain (DC) Additional Instructions: Return to the emergency department with any new, worsening, or concerning symptoms. Follow up with your primary care provider in 1-2 days. Prescriptions: HYDROcodone/APAP 10-325MG [[place] 10-325] 1 tab PO Q6HR PRN 3 Days #12 tab PRN Reason: Pain Is patient prescribed a controlled substance at d/c from ED?: Yes When asked, does pt state using other controlled substances?: Yes If prescribed controlled substance>3 days was MAPS reviewed?: Prescribed <3 Days Referrals: Palak Aguirre MD [Primary Care Provider] - 1-2 days Time of Disposition: 22:59
[2023-12-05] MEDS: HYDROmorphone 1 MG/ML 1 ML SYRINGE IM STA (23:00)
[2023-12-05] MEDS: KETOROLAC 15 MG/ML 1 ML VIAL IM STA (23:01)
[2023-12-05 23:17] VITALS: BP 118/82; PULSE 86; RESP 16
== END 2023-12-05 23:18 | disposition home or self-care (01) ==
LOC: EC 21:58
CPT/HCPCS: 96372; 99283

== ENCOUNTER 2023-12-21 21:58 | Emergency (ER) | payer OTHER ==
[2023-12-21 22:13] VITALS: RESP 18
--- NOTE | 2023-12-21 23:04 | ED ---
General Adult HPI - General Chief complaint: Extremity Problem,Nontraumatic Stated complaint: feet pain Time Seen by Provider: 12/21/23 22:10 Source: patient, RN notes reviewed Mode of arrival: wheelchair - History of Present Illness Initial comments: This is a 53-year-old female with a history of neuropathy and chronic pain presenting to the emergency department for chief complaint of chronic pain and request for medication refill. Patient states that she was discharged from her pain management office over 1 month ago and has been struggling to establish care with a new bumper and painter. Patient is normally taking Elwood 10 mg as needed for chronic pain. her last fill of the prescription was when she was in the emergency department over 2 weeks ago that was a 3-day supply. - Related Data Home Medications Medication Instructions Recorded Confirmed Gabapentin [Neurontin] 400 mg PO TID PRN 01/24/19 02/09/23 Ibuprofen [Motrin Ib] 600 mg PO Q6H PRN 01/24/19 02/09/23 Losartan [Cozaar] 50 mg PO BID 01/10/20 02/09/23 hydroCHLOROthiazide 12.5 mg PO DAILY PRN 01/10/20 02/09/23 Empagliflozin/Metformin HCl 1 tab PO BID 07/29/22 02/09/23 [Synjardy 12.5-1,000 mg Tablet] Ferrous Sulfate [Iron (65 MG 325 mg PO DAILY 07/29/22 02/09/23 Elemental)] Meloxicam [Mobic] 7.5 mg PO DAILY 07/29/22 02/09/23 Omeprazole 40 mg PO DAILY 07/29/22 02/09/23 hydroCHLOROthiazide [Hydrodiuril] 12.5 mg PO DAILY 07/29/22 02/09/23 Previous Rx's Medication Instructions Recorded HYDROcodone/APAP 7.5-325MG [Elwood 1 tab PO Q6HR PRN 30 Days #120 tab 07/13/23 7.5-325] HYDROcodone/APAP 7.5-325MG [Elwood 1 tab PO QID PRN 30 Days #120 tab 07/13/23 7.5-325] methocarbamoL [Robaxin] 500 mg PO BID PRN 30 Days #60 tab 07/13/23 HYDROcodone/APAP 10-325MG [Elwood 1 tab PO Q6HR PRN 3 Days #12 tab 11/23/23 10-325] HYDROcodone/APAP 10-325MG [Elwood 1 tab PO Q6HR PRN 3 Days #12 tab 12/05/23 10-325] HYDROcodone/APAP 10-325MG [Elwood 1 tab PO Q6HR PRN 3 Days #12 tab 12/21/23 10-325] Allergies Allergy/AdvReac Type Severity Reaction Status Date / Time adhesive tape AdvReac Rash/Hives Verified 12/21/23 22:13 Latex, Natural Rubber AdvReac Rash/Hives Verified 12/21/23 22:13 Review of Systems ROS Statement: Those systems with pertinent positive or pertinent negative responses have been documented in the HPI. ROS Other: All systems not noted in ROS Statement are negative. Past Medical History Past Medical History: Cancer, Diabetes Mellitus, GERD/Reflux, Hypertension, Osteoarthritis (OA), Thyroid Disorder Additional Past Medical History / Comment(s): hx. skin cancer, neuropathy hands and feet, essential tremors, IBS, hx of diverticulitis, anemia, thyroid nodule History of Any Multi-Drug Resistant Organisms: None Reported, MRSA Date of last positivie culture/infection: 2013 MDRO Source:: back Past Surgical History: Tonsillectomy Additional Past Surgical History / Comment(s): EGD, colonoscopy, abscess on back removed Past Anesthesia/Blood Transfusion Reactions: Family History of Problems w/ Anesthesia Additional Past Anesthesia/Blood Transfusion Reaction / Comment(s): grandparent after surgery-?related to anesthesia Past Psychological History: No Psychological Hx Reported Smoking Status: Former smoker Past Alcohol Use History: Rare Past Drug Use History: None Reported - Past Family History Mother Family Medical History: Deep Vein Thrombosis (DVT) General Exam General appearance: alert, in no apparent distress Eye exam: Present: normal appearance, PERRL, EOMI. Absent: scleral icterus, conjunctival injection, periorbital swelling ENT exam: Present: normal exam, mucous membranes moist Neck exam: Present: normal inspection. Absent: tenderness, meningismus, lymphadenopathy Respiratory exam: Present: normal lung sounds bilaterally. Absent: respiratory distress, wheezes, rales, rhonchi, stridor Cardiovascular Exam: Present: regular rate, normal rhythm, normal heart sounds. Absent: systolic murmur, diastolic murmur, rubs, gallop, clicks GI/Abdominal exam: Present: soft, normal bowel sounds. Absent: distended, tenderness, guarding, rebound, rigid Extremities exam: Present: normal inspection, full ROM, normal capillary refill, other (bilateral LE edema, pitting 1+, global pain). Absent: tenderness, pedal edema, joint swelling, calf tenderness Back exam: Present: normal inspection Neurological exam: Present: alert, oriented X3, CN II-XII intact Skin exam: Present: warm, dry, intact, normal color. Absent: rash Course Vital Signs 12/21/23 22:10 Temperature 98.7 F Pulse Rate 97 Respiratory 18 Rate Blood Pressure 114/74 O2 Sat by Pulse 99 Oximetry Medical Decision Making - Medical Decision Making Was pt. sent in by a medical professional or institution (MARLENE Gallo, MID LEVEL CLINICIAN, urgent care, hospital, or senior care...) When possible be specific @ -No Did you speak to anyone other than the patient for history (EMS, parent, family, police, friend...)? What history was obtained from this source @ -No Did you review nursing and triage notes (agree or disagree)? Why? @ -I reviewed and agree with nursing and triage notes Were old charts reviewed (outside hosp., previous admission, EMS record, old EKG, old radiological studies, urgent care reports/EKG's, senior care records)? Report findings @ -No old charts were reviewed Differential Diagnosis (chest pain, altered mental status, abdominal pain women, abdominal pain men, vaginal bleeding, weakness, fever, dyspnea, syncope, headache, dizziness, GI bleed, back pain, seizure, CVA, palpatations, mental health, musculoskeletal)? @ -Chronic pain EKG interpreted by me (3pts min.). @ -None X-rays interpreted by me (1pt min.). @ -None done CT interpreted by me (1pt min.). @ -None done U/S interpreted by me (1pt. min.). @ -None done What testing was considered but not performed or refused? (CT, X-rays, U/S, labs)? Why? @ -None What meds were considered but not given or refused? Why? @ -None Did you discuss the management of the patient with other professionals (professionals i.e. MARLENE Gallo, MID LEVEL CLINICIAN, lab, RT, psych nurse, addiction social worker, new accounts banking representative, teacher, surveillance dual rate officer, patient case coordinator)? Give summary @ -No Was smoking cessation discussed for >3mins.? @ -No Was critical care preformed (if so, how long)? @ -No Were there social determinants of health that impacted care today? How? (Homelessness, low income, unemployed, alcoholism, drug addiction, transportation, low edu. Level, literacy, decrease access to med. care, long-term, rehab)? @ -No Was there de-escalation of care discussed even if they declined (Discuss DNR or withdrawal of care, Hospice)? DNR status @ -No What co-morbidities impacted this encounter? (DM, HTN, Smoking, COPD, CAD, Cancer, CVA, ARF, Chemo, Hep., AIDS, mental health diagnosis, sleep apnea, morbid obesity)? @ -None Was patient admitted / discharged? Hospital course, mention meds given and route, prescriptions, significant lab abnormalities, going to OR and other pertinent info. @ -Discharge. 53-year-old female presenting for medication movements refill and chronic pain. On evaluation patient noted to have bilateral lower extremity edema. States that she normally takes Lasix as prescribed by primary care provider as needed for edema and she states that she has medication at home. Patient is requesting pain medication at this time. She has chronic pain. Patient with dose of Toradol as she did drive presents emergency department. She is sent a 3-day prescription for Elwood instructed to follow-up with her primary care provider and to establish care with a bumper and painter. Discussed with Dr. Amos Undiagnosed new problem with uncertain prognosis? @ -No Drug Therapy requiring intensive monitoring for toxicity (Heparin, Nitro, Insulin, Cardizem)? @ -No Were any procedures done? @ -No Diagnosis/symptom? @ -encounter for medication administration, chronic pain Acute, or Chronic, or Acute on Chronic? @ -Acute Uncomplicated (without systemic symptoms) or Complicated (systemic symptoms)? @ -uncomplicated Side effects of treatment? @ -No Exacerbation, Progression, or Severe Exacerbation? @ -No Poses a threat to life or bodily function? How? (Chest pain, [place], [place], pneumonia, PE, COPD, DKA, ARF, appy, cholecystitis, CVA, Diverticulitis, Homicidal, Suicidal, threat to staff... and all critical care pts) @ -No Disposition Clinical Impression: Neuropathy, Chronic pain Disposition: HOME SELF-CARE Condition: Good Instructions (If sedation given, give patient instructions): Chronic Pain (ED) Additional Instructions: Please return to the Emergency Department if symptoms worsen or any other concerns. Prescriptions: HYDROcodone/APAP 10-325MG [Elwood 10-325] 1 tab PO Q6HR PRN 3 Days #12 tab PRN Reason: Pain Is patient prescribed a controlled substance at d/c from ED?: Yes When asked, does pt state using other controlled substances?: No If prescribed controlled substance>3 days was MAPS reviewed?: Prescribed <3 Days Referrals: Palak Aguirre MD [Primary Care Provider] - 1-2 days Time of Disposition: 23:33
[2023-12-21] MEDS: KETOROLAC 15 MG/ML 1 ML VIAL IM STA (23:57)
[2023-12-22 00:05] VITALS: BP 116/75; PULSE 81; TEMP 98.6
== END 2023-12-22 00:04 | disposition home or self-care (01) ==
LOC: EC 21:58
CPT/HCPCS: 96372; 99283

== ENCOUNTER 2024-01-09 16:19 | Emergency (ER) | payer OTHER ==
--- NOTE | 2024-01-09 16:46 | ED ---
Extremity Problem HPI - General Source: patient, RN notes reviewed Mode of arrival: ambulatory Limitations: no limitations <Edilma Miles - Last Filed: 01/09/24 16:44> - General Source: patient, RN notes reviewed Mode of arrival: ambulatory Limitations: no limitations <Kang Germain - Last Filed: 01/09/24 18:20> - General Chief complaint: Extremity Problem,Nontraumatic Stated complaint: LT KNEE SWOLLEN, CHRONIC PAIN Time Seen by Provider: 01/09/24 16:32 - History of Present Illness Initial comments: Quick [id number] female presents emergency department chief complaint of left lower extremity edema that is worsened over the past 3 days. Patient denies erythema to the leg. Denies history of DVT or PE. Denies shortness of breath, difficulty breathing or chest pain. (Edilma Miles) Patient is a 53-year-old female presenting to the emergency department with concern over left leg swelling. Patient states that started a couple days ago, worse today. Patient states there may be some mild discomfort however has chronic discomfort both sides related to neuropathy that is unchanged. No chest pain. No dyspnea. Patient states she has had similar symptoms multiple times previously. (Kang Germain) - Related Data Home Medications Medication Instructions Recorded Confirmed Gabapentin [Neurontin] 400 mg PO TID PRN 01/24/19 02/09/23 Ibuprofen [Motrin Ib] 600 mg PO Q6H PRN 01/24/19 02/09/23 Losartan [Cozaar] 50 mg PO BID 01/10/20 02/09/23 hydroCHLOROthiazide 12.5 mg PO DAILY PRN 01/10/20 02/09/23 Empagliflozin/Metformin HCl 1 tab PO BID 07/29/22 02/09/23 [Synjardy 12.5-1,000 mg Tablet] Ferrous Sulfate [Iron (65 MG 325 mg PO DAILY 07/29/22 02/09/23 Elemental)] Meloxicam [Mobic] 7.5 mg PO DAILY 07/29/22 02/09/23 Omeprazole 40 mg PO DAILY 07/29/22 02/09/23 hydroCHLOROthiazide [Hydrodiuril] 12.5 mg PO DAILY 07/29/22 02/09/23 Previous Rx's Medication Instructions Recorded HYDROcodone/APAP 7.5-325MG [Bivalve 1 tab PO Q6HR PRN 30 Days #120 tab 07/13/23 7.5-325] HYDROcodone/APAP 7.5-325MG [Bivalve 1 tab PO QID PRN 30 Days #120 tab 07/13/23 7.5-325] methocarbamoL [Robaxin] 500 mg PO BID PRN 30 Days #60 tab 07/13/23 HYDROcodone/APAP 10-325MG [Bivalve 1 tab PO Q6HR PRN 3 Days #12 tab 11/23/23 10-325] HYDROcodone/APAP 10-325MG [Bivalve 1 tab PO Q6HR PRN 3 Days #12 tab 12/05/23 10-325] HYDROcodone/APAP 10-325MG [Bivalve 1 tab PO Q6HR PRN 3 Days #12 tab 12/21/23 10-325] Empagliflozin/Metformin HCl 1 each PO BID #14 tab 01/09/24 [Synjardy 12.5-1,000 mg Tablet] Allergies Allergy/AdvReac Type Severity Reaction Status Date / Time adhesive tape AdvReac Rash/Hives Verified 01/09/24 16:25 Latex, Natural Rubber AdvReac Rash/Hives Verified 01/09/24 16:25 Review of Systems ROS Other: All systems not noted in ROS Statement are negative. <Edilma Miles - Last Filed: 01/09/24 16:44> ROS Other: All systems not noted in ROS Statement are negative. Constitutional: Denies: fever Eyes: Denies: eye pain ENT: Denies: ear pain Respiratory: Denies: cough, dyspnea Cardiovascular: Denies: chest pain Endocrine: Denies: fatigue Gastrointestinal: Denies: abdominal pain <Kang Germain - Last Filed: 01/09/24 18:20> ROS Statement: Those systems with pertinent positive or pertinent negative responses have been documented in the HPI. Past Medical History Past Medical History: Cancer, Diabetes Mellitus, GERD/Reflux, Hypertension, Osteoarthritis (OA), Thyroid Disorder Additional Past Medical History / Comment(s): hx. skin cancer, neuropathy hands and feet, essential tremors, IBS, hx of diverticulitis, anemia, thyroid nodule History of Any Multi-Drug Resistant Organisms: None Reported, MRSA Date of last positivie culture/infection: 2013 MDRO Source:: back Past Surgical History: Tonsillectomy Additional Past Surgical History / Comment(s): EGD, colonoscopy, abscess on back removed Past Anesthesia/Blood Transfusion Reactions: Family History of Problems w/ Anesthesia Additional Past Anesthesia/Blood Transfusion Reaction / Comment(s): grandparent after surgery-?related to anesthesia Past Psychological History: No Psychological Hx Reported Smoking Status: Former smoker Past Alcohol Use History: Rare Past Drug Use History: None Reported - Past Family History Mother Family Medical History: Deep Vein Thrombosis (DVT) <Edilma Miles - Last Filed: 01/09/24 16:44> General Exam Limitations: no limitations <Edilma Miles - Last Filed: 01/09/24 16:44> Limitations: no limitations General appearance: alert, in no apparent distress Head exam: Present: normocephalic Eye exam: Present: normal appearance Neck exam: Present: normal inspection Respiratory exam: Present: normal lung sounds bilaterally Cardiovascular Exam: Present: regular rate, normal rhythm Expanded Peripheral pulses: 2+: Dorsalis Pedis (R), Dorsalis Pedis (L) GI/Abdominal exam: Present: soft. Absent: tenderness Extremities exam: Present: pedal edema (Left greater than right), calf tenderness (Mild left) Neurological exam: Present: alert. Absent: motor sensory deficit Psychiatric exam: Present: normal affect, normal mood Skin exam: Present: normal color <Kang Germain - Last Filed: 01/09/24 18:20> - General Exam Comments Initial Comments: Visual Physical Exam Vital signs reviewed General: Well-appearing, nontoxic, no acute distress. Head: Normocephalic, atraumatic Eyes: PERRLA, EOMI ENT: Airway patent Chest: Nonlabored breathing Skin: No visual rash, normal skin tone Neuro: Alert and oriented 3 Musculoskeletal: No gross abnormalities (Edilma Miles) Course Vital Signs 01/09/24 16:23 Temperature 98.9 F Pulse Rate 78 Respiratory 16 Rate Blood Pressure 149/99 O2 Sat by Pulse 100 Oximetry Medical Decision Making <Edilma Miles - Last Filed: 01/09/24 16:44> <Kang Germain - Last Filed: 01/09/24 18:20> - Medical Decision Making I completed the quick note portion of this chart signed Edilma Miles PA-C (Edilma Miles) DENIS was pt. sent in by a medical professional or institution (MARLENE Gallo, FREIGHT BRAKE OPERATOR, urgent care, hospital, or retirement...) When possible be specific @ -No Did you speak to anyone other than the patient for history (EMS, parent, family, police, friend...)? What history was obtained from this source @ -No Did you review nursing and triage notes (agree or disagree)? Why? @ -I reviewed and agree with nursing and triage notes Were old charts reviewed (outside hosp., previous admission, EMS record, old EKG, old radiological studies, urgent care reports/EKG's, retirement records)? Report findings @ -No old charts were reviewed Differential Diagnosis (chest pain, altered mental status, abdominal pain women, abdominal pain men, vaginal bleeding, weakness, fever, dyspnea, syncope, headache, dizziness, GI bleed, back pain, seizure, CVA, palpatations, mental health, musculoskeletal)? @ -Differential Musculoskeletal Muscular strain, contusion, ligament sprain, fracture, arthritis, septic arthritis, bursitis, cellulitis, muscle spasm, nerve compression, DVT, arterial occlusion, herpes zoster, electrolyte abnormality, tumor.... This is not meant to be in all inclusive list EKG interpreted by me (3pts min.). @ -As above X-rays interpreted by me (1pt min.). @ -None done CT interpreted by me (1pt min.). @ -None done U/S interpreted by me (1pt. min.). @ -Ultrasound left leg negative for DVT What testing was considered but not performed or refused? (CT, X-rays, U/S, labs)? Why? @ -None What meds were considered but not given or refused? Why? @ -None Did you discuss the management of the patient with other professionals (professionals i.e. MARLENE Gallo, FREIGHT BRAKE OPERATOR, lab, RT, psych nurse, community mental health social worker, draw furnace tender, teacher, correctional program officer, sample case porter)? Give summary @ -No Was smoking cessation discussed for >3mins.? @ -No Was critical care preformed (if so, how long)? @ -No Were there social determinants of health that impacted care today? How? (Homelessness, low income, unemployed, alcoholism, drug addiction, transporta tion, low edu. Level, literacy, decrease access to med. care, nursing home, rehab)? @ -No Was there de-escalation of care discussed even if they declined (Discuss DNR or withdrawal of care, Hospice)? DNR status @ -No What co-morbidities impacted this encounter? (DM, HTN, Smoking, COPD, CAD, Cancer, CVA, ARF, Chemo, Hep., AIDS, mental health diagnosis, sleep apnea, morbid obesity)? @ -History of similar symptoms previously and history of neuropathy Was patient admitted / discharged? Hospital course, mention meds given and route, prescriptions, significant lab abnormalities, going to OR and other per tinent info. @ -Patient presents with acute on chronic swelling of her left leg. Ultrasound unremarkable. Patient will be discharged with follow-up. Patient states she is in between doctors and in between pain doctors. Patient states she was fired from her new pain doctor. Patient requests Bivalve and Veena Undiagnosed new problem with uncertain prognosis? @ -No Drug Therapy requiring intensive monitoring for toxicity (Heparin, Nitro, Insulin, Cardizem)? @ -No Were any procedures done? @ -No Diagnosis/symptom? @ -Leg swelling Acute, or Chronic, or Acute on Chronic? @ -Acute on chronic Uncomplicated (without systemic symptoms) or Complicated (systemic symptoms)? @ -Default Side effects of treatment? @ -No Exacerbation, Progression, or Severe Exacerbation? @ -No Poses a threat to life or bodily function? How? (Chest pain, [place], [place], pneumonia, PE, COPD, DKA, ARF, appy, cholecystitis, CVA, Diverticulitis, Homicidal, Suicidal, threat to staff... and all critical care pts) @ -No (Kang Germain) Disposition <Edilma Miles - Last Filed: 01/09/24 16:44> Is patient prescribed a controlled substance at d/c from ED?: No Time of Disposition: 18:19 <Kang Germain - Last Filed: 01/09/24 18:20> Clinical Impression: Swelling of lower leg Disposition: HOME SELF-CARE Condition: Stable Instructions (If sedation given, give patient instructions): Leg Edema (ED) Additional Instructions: Please do follow-up with your primary care physician in the next couple of days for recheck. Numbers provided. Return for chest pain, difficulty breathing, color change or warmth, increased swelling, worsening symptoms or any other concerns. 1 week of Synjardy a has been sent to pharmacy. Prescriptions: Empagliflozin/Metformin HCl [Synjardy 12.5-1,000 mg Tablet] 1 each PO BID #14 tab Referrals: Palak Aguirre MD [Primary Care Provider] - 1-2 days Forms: [facility] PCPs
--- NOTE | 2024-01-09 17:43 | US ---
EXAMINATION TYPE: US venous doppler duplex LE LT DATE OF EXAM: 01/09/2024 5:37 PM COMPARISON: NONE CLINICAL INDICATION: Female, 53 years old with history of swelling; Patient states leg swelling near calf/ankle, pain, No redness or warmth. Has neuropathy. No hx DVT, not on thinners, TECHNIQUE: The lower extremity deep venous system is examined utilizing real time linear array sonog rolando with graded compression, color doppler sonography, and spectral doppler. SIDE PERFORMED: Left FINDINGS: VESSELS IMAGED: Common Femoral Vein Deep Femoral Vein Greater Saphenous Vein * Femoral Vein Popliteal Vein Small Saphenous Vein * Proximal Calf Veins (* superficial vessels) Left Leg: Negative for DVT, Color Doppler imaging shows patency of the vessels. Spectral waveforms a re within normal limits. Edema seen in calf/ ankle IMPRESSION: No ultrasound evidence for deep venous thrombosis. [facility], , 01/09/2024 5:41 PM
[2024-01-09] MEDS: HYDROcodone/APAP 10-325MG 1 EACH TAB PO ONE (18:19)
[2024-01-09 18:36] VITALS: BP 189/89; PULSE 88; RESP 18; TEMP 98.1
== END 2024-01-09 19:32 | disposition home or self-care (01) ==
LOC: EC 16:19
DX: M79.89 Other specified soft tissue disorders (principal); E11.40 Type 2 diabetes mellitus with diabetic neuropathy, unspecified; Z87.891 Personal history of nicotine dependence; Z91.040 Latex allergy status
CPT/HCPCS: 99283

== ENCOUNTER 2024-01-26 22:20 | Emergency (ER) | payer OTHER ==
[2024-01-26 22:23] VITALS: TEMP 98.2
[2024-01-26] MEDS: KETOROLAC 15 MG/ML 1 ML VIAL IVP STA (23:16)
[2024-01-26] MEDS: HYDROmorphone 0.5 MG/0.5 ML SYRINGE IVP STA (23:16)
[2024-01-26 23:18] LABS: Basophils # (A) 0.1 k/uL (0-0.2); Basophils % (A) 1 %; Eosinophils # (A) 0.3 k/uL (0-0.7); Eosinophils % (A) 4 %; HCT 38.7 % (34.0-46.0); HGB 12.7 gm/dL (11.4-16.0); Lymphocytes # (A) 2.7 k/uL (1.0-4.8); Lymphocytes % (A) 34 %; MCH 29.1 pg (25.0-35.0); MCHC 32.8 g/dL (31.0-37.0); MCV 88.8 fL (80.0-100.0); Mean Platelet Volume 7.1; Monocytes # (A) 0.6 k/uL (0-1.0); Monocytes % (A) 8 %; Neutrophils % (A) 50 %; Platelet Count 321 k/uL (150-450); RBC 4.36 m/uL (3.80-5.40); RDW 12.6 % (11.5-15.5); WBC 7.9 k/uL (3.8-10.6)
[2024-01-26 23:32] LABS: ALT 20 U/L (4-34); AST 83 U/L (14-36); African American GFR (CKD) >90 (>60 ml/min/1.73 sqM); Albumin 5.1 g/dL (3.5-5.0); Alkaline Phosphatase 53 U/L (38-126); Anion Gap 5 mmol/L; Blood Urea Nitrogen 19 mg/dL (7-17); Calcium 8.2 mg/dL (8.4-10.2); Carbon Dioxide 21 mmol/L (22-30); Chloride 102 mmol/L (98-107); Glucose 242 mg/dL (74-99); Non-African American GFR(CKD) >90 (>60 ml/min/1.73 sqM); Sodium 128 mmol/L (137-145); Total Bilirubin 2.8 mg/dL (0.2-1.3); Total Protein 8.5 g/dL (6.3-8.2)
--- NOTE | 2024-01-26 23:34 | ED ---
Extremity Problem HPI - General Chief complaint: Extremity Problem,Nontraumatic Stated complaint: Foot and hand pain Time Seen by Provider: 01/26/24 22:32 Source: patient, RN notes reviewed Mode of arrival: ambulatory Limitations: no limitations - History of Present Illness Initial comments: This is a 53-year-old female with history of peripheral neuropathy and DM presenting with chronic bilateral foot pain (7/10) for years. Patient describes pain as burning/stabbing that worsens when ambulating/weightbearing. Patient states her pain clinic doctor has retired and is requesting pain medication for her current neuropathy pain. Patient is also requesting p.o. hydrocodone 10 mg 4 times daily for ongoing pain. Patient also notes left lower extremity edema compared to swelling in right leg for the past 3 weeks. Patient was seen in ER for this edema on 01/09/2024 when no DVT was discovered. Patient states she is unsure why her left leg is more swollen than her right. Denies history of coagulopathy, blood clots, DVT, PE, hormone use, current smoking. Endorses history of thyroid nodule biopsy/removal 1 year ago but otherwise denies any re cent surgery. Denies current use of blood thinners. Denies fever, chills, chest pain, dyspnea, abdominal pain, N/V/D. MD Complaint: extremity pain, extremity swelling Onset/Timin -: week(s) Location: left History of Same: Yes Severity scale (1-10): 7 Quality: burning, stabbing Consistency: constant Improves with: nothing, immobilization, elevation Worsens with: weight bearing, walking Associated Symptoms: denies other symptoms - Related Data Home Medications Medication Instructions Recorded Confirmed Gabapentin [Neurontin] 400 mg PO TID PRN 01/24/19 02/09/23 Ibuprofen [Motrin Ib] 600 mg PO Q6H PRN 01/24/19 02/09/23 Losartan [Cozaar] 50 mg PO BID 01/10/20 02/09/23 hydroCHLOROthiazide 12.5 mg PO DAILY PRN 01/10/20 02/09/23 Empagliflozin/Metformin HCl 1 tab PO BID 07/29/22 02/09/23 [Synjardy 12.5-1,000 mg Tablet] Ferrous Sulfate [Iron (65 MG 325 mg PO DAILY 07/29/22 02/09/23 Elemental)] Meloxicam [Mobic] 7.5 mg PO DAILY 07/29/22 02/09/23 Omeprazole 40 mg PO DAILY 07/29/22 02/09/23 hydroCHLOROthiazide [Hydrodiuril] 12.5 mg PO DAILY 07/29/22 02/09/23 Previous Rx's Medication Instructions Recorded HYDROcodone/APAP 7.5-325MG [[place] 1 tab PO Q6HR PRN 30 Days #120 tab 07/13/23 7.5-325] HYDROcodone/APAP 7.5-325MG [[place] 1 tab PO QID PRN 30 Days #120 tab 07/13/23 7.5-325] methocarbamoL [Robaxin] 500 mg PO BID PRN 30 Days #60 tab 07/13/23 HYDROcodone/APAP 10-325MG [[place] 1 tab PO Q6HR PRN 3 Days #12 tab 11/23/23 10-325] HYDROcodone/APAP 10-325MG [[place] 1 tab PO Q6HR PRN 3 Days #12 tab 12/05/23 10-325] HYDROcodone/APAP 10-325MG [[place] 1 tab PO Q6HR PRN 3 Days #12 tab 12/21/23 10-325] Empagliflozin/Metformin HCl 1 each PO BID #14 tab 01/09/24 [Synjardy 12.5-1,000 mg Tablet] HYDROcodone/APAP 10-325MG [[place] 1 tab PO Q6HR PRN 3 Days #12 tab 01/26/24 10-325] Allergies Allergy/AdvReac Type Severity Reaction Status Date / Time adhesive tape AdvReac Rash/Hives Verified 01/26/24 22:23 Latex, Natural Rubber AdvReac Rash/Hives Verified 01/26/24 22:23 Review of Systems ROS Statement: Those systems with pertinent positive or pertinent negative responses have been documented in the HPI. ROS Other: All systems not noted in ROS Statement are negative. Past Medical History Past Medical History: Cancer, Diabetes Mellitus, GERD/Reflux, Hypertension, Osteoarthritis (OA), Thyroid Disorder Additional Past Medical History / Comment(s): hx. skin cancer, neuropathy hands and feet, essential tremors, IBS, hx of diverticulitis, anemia, thyroid nodule History of Any Multi-Drug Resistant Organisms: None Reported, MRSA Date of last positivie culture/infection: 2014 MDRO Source:: back Past Surgical History: Tonsillectomy Additional Past Surgical History / Comment(s): EGD, colonoscopy, abscess on back removed Past Anesthesia/Blood Transfusion Reactions: Family History of Problems w/ Anesthesia Additional Past Anesthesia/Blood Transfusion Reaction / Comment(s): grandparent after surgery-?related to anesthesia Past Psychological History: No Psychological Hx Reported Smoking Status: Former smoker Past Alcohol Use History: Rare Past Drug Use History: None Reported - Past Family History Mother Family Medical History: Deep Vein Thrombosis (DVT) General Exam Limitations: no limitations General appearance: alert, in no apparent distress Head exam: Present: atraumatic, normocephalic, normal inspection Eye exam: Present: normal appearance, PERRL, EOMI. Absent: scleral icterus, conjunctival injection, periorbital swelling ENT exam: Present: normal exam, mucous membranes moist Neck exam: Present: normal inspection. Absent: tenderness, meningismus, lymphadenopathy Respiratory exam: Present: normal lung sounds bilaterally. Absent: respiratory distress, wheezes, rales, rhonchi, stridor Cardiovascular Exam: Present: regular rate, normal rhythm, normal heart sounds. Absent: systolic murmur, diastolic murmur, rubs, gallop, clicks GI/Abdominal exam: Present: soft, normal bowel sounds. Absent: distended, tenderness, guarding, rebound, rigid Extremities exam: Present: full ROM, normal capillary refill, pedal edema (RLE edema +2, LLE edema +4 with pitting), calf tenderness (Positive left Homans' si gn), other (Skin of left lower extremity to mid stevenson is slightly more erythematous than right lower extremity). Absent: tenderness, joint swelling Back exam: Present: normal inspection Neurological exam: Present: alert, oriented X3, CN II-XII intact Psychiatric exam: Present: normal affect, normal mood Skin exam: Present: warm, dry, intact, normal color. Absent: rash Course Vital Signs 01/26/24 01/27/24 22:21 02:08 Temperature 98.2 F Pulse Rate 84 78 Respiratory 18 15 Rate Blood Pressure 159/91 126/77 O2 Sat by Pulse 99 99 Oximetry Medical Decision Making - Medical Decision Making Was pt. sent in by a medical professional or institution (, PA, MACHINIST BENCH, urgent care, hospital, or [facility]...) When possible be specific @ -No Did you speak to anyone other than the patient for history (EMS, parent, family, police, friend...)? What history was obtained from this source @ -No Did you review nursing and triage notes (agree or disagree)? Why? @ -I reviewed and agree with nursing and triage notes Were old charts reviewed (outside hosp., previous admission, EMS record, old EKG, old radiological studies, urgent care reports/EKG's, [facility] records)? Report findings @ -ER visit from 01/09/2024 reviewed with patient having similar LLE edema with no DVT discovered at that time. Differential Diagnosis (chest pain, altered mental status, abdominal pain women, abdominal pain men, vaginal bleeding, weakness, fever, dyspnea, syncope, headache, dizziness, GI bleed, back pain, seizure, CVA, palpatations, mental health, musculoskeletal)? @ -DVT, lymphedema, cellulitis, PVD, PAD, intermittent claudication, peripheral neuropathy, this is not an exhaustive list. EKG interpreted by me (3pts min.). @ -Not done X-rays interpreted by me (1pt min.). @ -None done CT interpreted by me (1pt min.). @ -None done U/S interpreted by me (1pt. min.). @ -Results pending What testing was considered but not performed or refused? (CT, X-rays, U/S, labs)? Why? @ -None What meds were considered but not given or refused? Why? @ -None Did you discuss the management of the patient with other professionals (professionals i.e. , PA, MACHINIST BENCH, lab, RT, psych nurse, oncology social work, activities assistant, teacher, chief operations officer, case checker)? Give summary @ -No Was smoking cessation discussed for >3mins.? @ -No Was critical care preformed (if so, how long)? @ -No Were there social determinants of health that impacted care today? How? (Homelessness, low income, unemployed, alcoholism, drug addiction, transportation, low edu. Level, literacy, decrease access to med. care, detention, rehab)? @ -No Was there de-escalation of care discussed even if they declined (Discuss DNR or withdrawal of care, Hospice)? DNR status @ -No What co-morbidities impacted this encounter? (DM, HTN, Smoking, COPD, CAD, Cancer, CVA, ARF, Chemo, Hep., AIDS, mental health diagnosis, sleep apnea, morbid obesity)? @ -Peripheral neuropathy, DM Was patient admitted / discharged? Hospital course, mention meds given and r oute, prescriptions, significant lab abnormalities, going to OR and other pertinent info. @ -LLE Doppler ultrasound performed with no discovery of acute DVT. Lab work shows sodium of 128 with known use of hydrochlorothiazide. Patient given 1 L normal saline IV. Hyperglycemia of 242 with elevated liver enzymes and protein. Patient given IV Dilaudid and Toradol for pain. Paper prescription for hydrocodone/APAP (10-325) x 12 tablets every 6 hours as needed, provided to duong ent as EPICS is unavailable for prescriber. Paper prescription for compression stockings provided. Advised to have prescription filled at medical supply store apply compression stockings during the day and remove at night. Undiagnosed new problem with uncertain prognosis? @ -No Drug Therapy requiring intensive monitoring for toxicity (Heparin, Nitro, Insulin, Cardizem)? @ -No Were any procedures done? @ -No Diagnosis/symptom? @ -Peripheral neuropathy pain, BLE edema Acute, or Chronic, or Acute on Chronic? @ -Acute on chronic Uncomplicated (without systemic symptoms) or Complicated (systemic symptoms)? @ -Uncomplicated Side effects of treatment? @ -No Exacerbation, Progression, or Severe Exacerbation? @ -No Poses a threat to life or bodily function? How? (Chest pain, USA, DC, pneumonia, PE, COPD, DKA, ARF, appy, cholecystitis, CVA, Diverticulitis, Homicidal, Suicidal, threat to staff... and all critical care pts) @ -No - Lab Data Result diagrams: 01/26/24 23:09 01/26/24 23:09 Lab Results 01/26/24 01/26/24 01/26/24 Range/Units 23:09 23:09 23:09 WBC 7.9 (3.8-10.6) k/uL RBC 4.36 (3.80-5.40) m/uL Hgb 12.7 (11.4-16.0) gm/dL Hct 38.7 (34.0-46.0) % MCV 88.8 (80.0-100.0) fL MCH 29.1 (25.0-35.0) pg MCHC 32.8 (31.0-37.0) g/dL RDW 12.6 (11.5-15.5) % Plt Count 321 (150-450) k/uL MPV 7.1 Neutrophils % 50 % Lymphocytes % 34 % Monocytes % 8 % Eosinophils % 4 % Basophils % 1 % Neutrophils # 4.0 (1.3-7.7) k/uL Lymphocytes # 2.7 (1.0-4.8) k/uL Monocytes # 0.6 (0-1.0) k/uL Eosinophils # 0.3 (0-0.7) k/uL Basophils # 0.1 (0-0.2) k/uL PT 10.2 (10.0-12.5) sec INR 0.9 (<1.2) APTT 23.2 (22.0-30.0) sec Sodium 128 L (137-145) mmol/L Potassium (3.5-5.1) mmol/L Chloride 102 (98-107) mmol/L Carbon Dioxide 21 L (22-30) mmol/L Anion Gap 5 mmol/L BUN 19 H (7-17) mg/dL Creatinine 0.56 (0.52-1.04) mg/dL Est GFR (CKD-EPI)AfAm >90 (>60 ml/min/1.73 sqM) Est GFR (CKD-EPI)NonAf >90 (>60 ml/min/1.73 sqM) Glucose 242 H (74-99) mg/dL Calcium 8.2 L (8.4-10.2) mg/dL Total Bilirubin 2.8 H (0.2-1.3) mg/dL AST 83 H (14-36) U/L ALT 20 (4-34) U/L Alkaline Phosphatase 53 (38-126) U/L Total Protein 8.5 H (6.3-8.2) g/dL Albumin 5.1 H (3.5-5.0) g/dL Disposition Clinical Impression: Swelling of lower leg, Peripheral neuropathy, Hyponatremia, Hyperglycemia Disposition: HOME SELF-CARE Condition: Good Instructions (If sedation given, give patient instructions): Diabetic Peripheral Neuropathy (ED), Diabetic Hyperglycemia (ED) Prescriptions: HYDROcodone/APAP 10-325MG [[place] 10-325] 1 tab PO Q6HR PRN 3 Days #12 tab PRN Reason: Pain Is patient prescribed a controlled substance at d/c from ED?: Yes When asked, does pt state using other controlled substances?: No If prescribed controlled substance>3 days was MAPS reviewed?: Prescribed <3 Days (3 days total. MAPS reviewed - patient last received [place]/narcotics from this ER on 12/21/2023.) If opioid is for acute pain is fill amount 7 days or less?: Yes Referrals: Palak Aguirre MD [Primary Care Provider] - 1-2 days Time of Disposition: 02:15
[2024-01-26 23:37] LABS: INR 0.9 (<1.2); Partial Thromboplastin Time 23.2 sec (22.0-30.0); Prothrombin Time 10.2 sec (10.0-12.5)
[2024-01-27] MEDS: SODIUM CHLORIDE 0.9% 1,000 ML IV STA (00:14)
--- NOTE | 2024-01-27 01:19 | US ---
EXAM: US Duplex Left Lower Extremity Veins CLINICAL HISTORY: ITS.REASON US Reason: LLE edema TECHNIQUE: Real-time duplex ultrasound scan of the left lower extremity veins integrating B-mode two-dimensional vascular structure, Doppler spectral analysis, color flow Doppler imaging and compression. COMPARISON: US Duplex Lower Extremity Veins dated 01/09/24 FINDINGS: Deep veins: Unremarkable. No DVT in the visualized common femoral, femoral, proximal deep femoral or popliteal veins. The veins demonstrate normal color flow, are normally compressible, with normal phasic flow and/or augmentation response. Superficial veins: Unremarkable. No thrombus in the visualized great saphenous vein. Soft tissues: No acute findings. No popliteal cyst. IMPRESSION: No evidence of DVT in the left lower extremity
[2024-01-27 02:09] VITALS: BP 126/77; PULSE 78; RESP 15
== END 2024-01-27 02:09 | disposition home or self-care (01) ==
LOC: EC 22:20
DX: E11.51 Type 2 diabetes mellitus with diabetic peripheral angiopathy without gangrene (principal); E11.65 Type 2 diabetes mellitus with hyperglycemia; E87.1 Hypo-osmolality and hyponatremia; Z91.048 Other nonmedicinal substance allergy status; Z91.040 Latex allergy status; Z87.891 Personal history of nicotine dependence
CPT/HCPCS: 36415; 80053; 85025; 85610; 85730; 93971; 99284; 96374; 96375; 96361; J1885; J1171

== ENCOUNTER 2024-03-05 22:13 | Emergency (ER) | payer OTHER ==
[2024-03-05 22:23] VITALS: RESP 18
--- NOTE | 2024-03-05 23:18 | ED ---
General Adult HPI - General Chief complaint: Recheck/Abnormal Lab/Rx Stated complaint: Body Pain Time Seen by Provider: 03/05/24 22:41 Source: patient, RN notes reviewed, old records reviewed Mode of arrival: wheelchair Limitations: no limitations - History of Present Illness Initial comments: 53-year-old female presenting with chronic pain. No acute injury or acute worsening of pain. Patient states that her previous painter apprentice retired and she has been unable to find a new pain management office. She is currently on [place] and has been out for several days. Patient presenting with request for medication refill. - Related Data Home Medications Medication Instructions Recorded Confirmed Gabapentin [Neurontin] 400 mg PO TID PRN 01/24/19 02/09/23 Ibuprofen [Motrin Ib] 600 mg PO Q6H PRN 01/24/19 02/09/23 Losartan [Cozaar] 50 mg PO BID 01/10/20 02/09/23 hydroCHLOROthiazide 12.5 mg PO DAILY PRN 01/10/20 02/09/23 Empagliflozin/Metformin HCl 1 tab PO BID 07/29/22 02/09/23 [Synjardy 12.5-1,000 mg Tablet] Ferrous Sulfate [Iron (65 MG 325 mg PO DAILY 07/29/22 02/09/23 Elemental)] Meloxicam [Mobic] 7.5 mg PO DAILY 07/29/22 02/09/23 Omeprazole 40 mg PO DAILY 07/29/22 02/09/23 hydroCHLOROthiazide [Hydrodiuril] 12.5 mg PO DAILY 07/29/22 02/09/23 Previous Rx's Medication Instructions Recorded HYDROcodone/APAP 7.5-325MG [[place] 1 tab PO Q6HR PRN 30 Days #120 tab 07/13/23 7.5-325] HYDROcodone/APAP 7.5-325MG [[place] 1 tab PO QID PRN 30 Days #120 tab 07/13/23 7.5-325] methocarbamoL [Robaxin] 500 mg PO BID PRN 30 Days #60 tab 07/13/23 HYDROcodone/APAP 10-325MG [[place] 1 tab PO Q6HR PRN 3 Days #12 tab 11/23/23 10-325] HYDROcodone/APAP 10-325MG [[place] 1 tab PO Q6HR PRN 3 Days #12 tab 12/05/23 10-325] HYDROcodone/APAP 10-325MG [[place] 1 tab PO Q6HR PRN 3 Days #12 tab 12/21/23 10-325] Empagliflozin/Metformin HCl 1 each PO BID #14 tab 01/09/24 [Synjardy 12.5-1,000 mg Tablet] HYDROcodone/APAP 10-325MG [[place] 1 tab PO Q6HR PRN 3 Days #12 tab 01/26/24 10-325] HYDROcodone/APAP 10-325MG [[place] 1 tab PO Q6HR PRN 3 Days #12 tab 03/05/24 10-325] Allergies Allergy/AdvReac Type Severity Reaction Status Date / Time adhesive tape AdvReac Rash/Hives Verified 03/05/24 22:23 Latex, Natural Rubber AdvReac Rash/Hives Verified 03/05/24 22:23 Review of Systems ROS Statement: Those systems with pertinent positive or pertinent negative responses have been documented in the HPI. ROS Other: All systems not noted in ROS Statement are negative. Past Medical History Past Medical History: Cancer, Diabetes Mellitus, GERD/Reflux, Hypertension, Osteoarthritis (OA), Thyroid Disorder Additional Past Medical History / Comment(s): hx. skin cancer, neuropathy hands and feet, essential tremors, IBS, hx of diverticulitis, anemia, thyroid nodule History of Any Multi-Drug Resistant Organisms: None Reported, MRSA Date of last positivie culture/infection: 2013 MDRO Source:: back Past Surgical History: Tonsillectomy Additional Past Surgical History / Comment(s): EGD, colonoscopy, abscess on back removed Past Anesthesia/Blood Transfusion Reactions: Family History of Problems w/ Anesthesia Additional Past Anesthesia/Blood Transfusion Reaction / Comment(s): grandparent after surgery-?related to anesthesia Past Psychological History: No Psychological Hx Reported Smoking Status: Former smoker Past Alcohol Use History: Rare Past Drug Use History: None Reported - Past Family History Mother Family Medical History: Deep Vein Thrombosis (DVT) General Exam Limitations: no limitations General appearance: alert, in no apparent distress Head exam: Present: atraumatic, normocephalic Eye exam: Present: normal appearance, PERRL Respiratory exam: Present: normal lung sounds bilaterally. Absent: respiratory distress Cardiovascular Exam: Present: regular rate, normal rhythm GI/Abdominal exam: Present: soft. Absent: distended, tenderness Neurological exam: Present: alert, oriented X3, CN II-XII intact. Absent: motor sensory deficit Psychiatric exam: Present: normal affect, normal mood Skin exam: Present: warm, dry, intact Course Vital Signs 03/05/24 22:18 Temperature 97.5 F L Pulse Rate 87 Respiratory 18 Rate Blood Pressure 154/89 O2 Sat by Pulse 100 Oximetry Medical Decision Making - Medical Decision Making Was pt. sent in by a medical professional or institution (, MARLENE, TIMING ADJUSTER, urgent care, hospital, or intermediate...) When possible be specific @ -No Did you speak to anyone other than the patient for history (EMS, parent, family, police, friend...)? What history was obtained from this source @ -No Did you review nursing and triage notes (agree or disagree)? Why? @ -I reviewed and agree with nursing and triage notes Were old charts reviewed (outside hosp., previous admission, EMS record, old EKG, old radiological studies, urgent care reports/EKG's, intermediate records)? Report findings @ -No old charts were reviewed Differential Diagnosis:, Chronic pain, medication refill EKG interpreted by me (3pts min.). @ -As above X-rays interpreted by me (1pt min.). @ -None done CT interpreted by me (1pt min.). @ -None done U/S interpreted by me (1pt. min.). @ -None done What testing was considered but not performed or refused? (CT, X-rays, U/S, labs)? Why? @ -None What meds were considered but not given or refused? Why? @ -None Did you discuss the management of the patient with other professionals (professionals i.e. , MARLENE, TIMING ADJUSTER, lab, RT, psych nurse, licensed clinical social worker, vessel scrapper, teacher, boat officer, outpatient case manager)? Give summary @ -No Was smoking cessation discussed for >3mins.? @ -No Was critical care preformed (if so, how long)? @ -No Were there social determinants of health that impacted care today? How? (Homelessness, low income, unemployed, alcoholism, drug addiction, transportat ion, low edu. Level, literacy, decrease access to med. care, long term, rehab)? @ -No Was there de-escalation of care discussed even if they declined (Discuss DNR or withdrawal of care, Hospice)? DNR status @ -No What co-morbidities impacted this encounter? (DM, HTN, Smoking, COPD, CAD, Cancer, CVA, ARF, Chemo, Hep., AIDS, mental health diagnosis, sleep apnea, morbid obesity)? @ -Chronic pain and neuropathy. Was patient admitted / discharged? Hospital course, mention meds given and route, prescriptions, significant lab abnormalities, going to OR and other pertinent info. @ -[53-year-old female for medication refill, chronic pain, no change. Patient is instructed to follow-up with her primary care provider regarding further prescriptions. Undiagnosed new problem with uncertain prognosis? @ -No Drug Therapy requiring intensive monitoring for toxicity (Heparin, Nitro, Insulin, Cardizem)? @ -No Were any procedures done? @ -No Diagnosis/symptom? @Chronic pain Acute, or Chronic, or Acute on Chronic? @Chronic Uncomplicated (without systemic symptoms) or Complicated (systemic symptoms)? @ -Default Side effects of treatment? @ -No Exacerbation, Progression, or Severe Exacerbation? @ -No Poses a threat to life or bodily function? How? (Chest pain, USA, PA, pneumonia, PE, COPD, DKA, ARF, appy, cholecystitis, CVA, Diverticulitis, Homicidal, Suicidal, threat to staff... and all critical care pts) @ -No Disposition Clinical Impression: Chronic pain Disposition: HOME SELF-CARE Condition: Fair Instructions (If sedation given, give patient instructions): Chronic Pain (ED) Prescriptions: HYDROcodone/APAP 10-325MG [[place] 10-325] 1 tab PO Q6HR PRN 3 Days #12 tab PRN Reason: Pain Is patient prescribed a controlled substance at d/c from ED?: No Referrals: Palak Aguirre MD [Primary Care Provider] - 1-2 days Time of Disposition: 23:16
[2024-03-05] MEDS: HYDROcodone/APAP 10-325MG 1 EACH TAB PO ONE (23:34)
[2024-03-05 23:44] VITALS: BP 157/92; PULSE 81; TEMP 98
== END 2024-03-05 23:38 | disposition home or self-care (01) ==
LOC: EC 22:13
DX: G89.29 Other chronic pain (principal); M54.9 Dorsalgia, unspecified; Z87.891 Personal history of nicotine dependence; Z91.040 Latex allergy status; Z91.048 Other nonmedicinal substance allergy status
CPT/HCPCS: 99283